=== PATIENT | male | born 1950 | race Caucasian/White ===

== ENCOUNTER 2021-11-26 09:31 | Inpatient (IN) ==
--- NOTE | 2021-11-26 09:51 | Emergency Department Note ---
Extremity Problem HPI General Chief complaint: Extremity Problem,Nontraumatic Stated complaint: leg pain Time Seen by Provider: 11/26/21 09:36 Source: patient and family Mode of arrival: wheelchair Limitations: no limitations History of Present Illness HPI Narrative: Narrative: 71-year-old male with a history of uncontrolled diabetes, venous insufficiency, BPH, congestive heart failure, chronic kidney disease, atrial fibrillation, reactive airway disease, hypertension, hyperlipidemia presents the ER to be eval uated for cellulitis of the right lower extremity. He was seen in the wound healing clinic yesterday and sent to the ER for admission for IV antibiotics and observation. He had unremarkable lab work and x-rays that showed no evidence of osteomyelitis or gas. He refused admission at that time because he had to take care of his animals. He states he has been trying to take his medications as regular but sometimes misses doses. He denies fever, chills, body aches, nausea or vomiting. He states his right lower extremity is painful and tender and has been weeping and oozing. It has been eroding away and he is losing skin surface on the anterior surface of his lower extremity. He does not have significant sensation. He does state the color has not changed though. He has no other complaints at this time and is amenable with admission today. Related Data Home Medications Medication Instructions Recorded Confirmed apixaban 5 mg tablet (Eliquis) 5 mg PO BID 02/16/18 11/26/21 omega-3 fatty acids 1,000 mg 1,000 mg PO QDAY 03/22/18 11/26/21 capsule (Fish Oil Concentrate) Previous Rx's Medication Instructions Recorded pen needle, diabetic 32 gauge x #100 ea 10/24/19" insulin detemir U-100 100 unit/mL 35 unit (0.35 mL) subcut QAM #30 mL 04/15/20 (3 mL) subcutaneous pen (Levemir FlexTouch U-100 Insulin) blood sugar diagnostic (Accu-Chek #100 ea 09/10/20 SmartView Test Strips) metformin 1,000 mg tablet 1,000 mg PO BID #180 tabs 05/27/21 spironolactone 25 mg tablet 25 mg PO QDAY #90 tabs 05/27/21 (Aldactone) glipizide 10 mg tablet (Glucotrol) 10 mg PO TID #270 tabs 06/06/21 amiodarone 200 mg tablet 200 mg PO QDAY #90 tabs 09/11/21 fenofibrate 160 mg tablet 160 mg PO QDAY #90 tabs 09/11/21 lisinopril 20 mg tablet 20 mg PO QDAY #90 tabs 09/11/21 furosemide 40 mg tablet (Lasix) 40 mg PO .COMPLEX #135 tabs 10/07/21 metoprolol succinate 100 mg 100 mg PO BID #180 tabs 11/11/21 tablet,extended release 24 hr (Toprol XL) tramadol 50 mg tablet (Ultram) 50 mg PO Q6H PRN pain #60 tabs 11/25/21 Allergies Allergy/AdvReac Type Severity Reaction Status Date / Time No Known Drug Allergies Allergy Verified 11/26/21 09:33 Review of Systems ROS ROS Narrative: Narrative: All systems ED: reviewed and negative except as stated. [facility] Narrative Patient History Narrative: Narrative: Medical/Surgical/Family History All Active Problems (Updated 11/26/21 @ 11:28 by Mina Lozano PA-C) Cellulitis of leg, right (Acute) Lower extremity ulceration (Acute) Cellulitis (Acute) Venous insufficiency (Acute) Frequent falls (Acute) Blunt head trauma (Acute) Foreign body of scalp (Acute) Lower extremity weakness (Acute) Pediculosis (Acute) Depression (Acute) BPH associated with nocturia (Acute) Lower extremity ulceration (Acute) Chronic pain (Acute) Annual physical exam (Acute) Medicare annual wellness visit, initial (Acute) Community acquired pneumonia (Acute) Congestive heart failure (Acute) Chronic kidney disease (Acute) Atrial fibrillation (Chronic) History of tonsillectomy (Acute) History of open reduction and internal fixation (ORIF) procedure (Acute) History of lumbosacral spine surgery (Acute) History of knee replacement (Acute) History of adenoidectomy (Acute) Reactive airway disease (Acute) Obesity (Acute) Neurodermatitis (Acute) Hypertension, essential (Chronic) Hyperlipidemia (Acute) Type 2 diabetes mellitus (Chronic) Dermatophytosis of groin (Acute) Cough (Acute) Colonic benign neoplasm (Acute) Ankle fracture (Acute) Medical History Ankle fracture Closed, R Annual physical exam BPH associated with nocturia Chronic pain Colonic benign neoplasm Cough Depression Dermatophytosis of groin 08/06/2014 Foreign body of scalp Hyperlipidemia Hypertension, essential 50s Lower extremity weakness Medicare annual wellness visit, initial Neurodermatitis 08/06/2014 Obesity Pediculosis Reactive airway disease Type 2 diabetes mellitus diagnosed in his 50s Surgical History History of adenoidectomy History of knee replacement left knee History of lumbosacral spine surgery decompression History of open reduction and internal fixation (ORIF) procedure Right ankle History of tonsillectomy Family History Mother , at 80 plus old age Atherosclerosis of coronary artery Essential hypertension Father , at 72 Malignant neoplasm of lung Social History Alcohol Intake Frequency: holiday/special occasion only Substance Use: does not use Exam Narrative Narrative: Narrative: Gen: No acute distress Eyes: PERRL, no conjunctival injection , and symmetrical lids. Sclerae non icte joo HENMT: Normocephalic Atraumatic head, external nose and ears. Moist MM. MSK: The majority of the anterior surface of the right lower extremity is eroding with a significant portion of the epidermis missing and it is eroding into the dermis with exposed oozing pink tissue. There is no purulent drainage. It is warm and erythematous. It is tender to the touch. Patient does have palpable distal pulses and cap refill. She does not have significant sensation due to diabetic neuropathy. Patient will likely need IV antibiotics and possible surgical debridement. Skin: Warm, Dry . No rashes or lesions . Cap refill less than 2. Psych: Awake, Alert, & Oriented (AAO) x3. Appropriate mood and affect . General Limitations: no limitations Course Vital Signs Vital signs: Vital Signs Temperature 96.1 F L 11/26/21 09:33 Pulse Rate 63 11/26/21 09:33 Respiratory Rate 20 11/26/21 09:33 Blood Pressure 126/68 11/26/21 09:33 Pulse Oximetry (%) 98 11/26/21 09:33 Oxygen Delivery Method 11/26/21 09:33 Temperature 96.1 F L 11/26/21 09:33 Pulse Rate 59 L 11/26/21 10:31 Respiratory Rate 20 11/26/21 09:33 Blood Pressure 105/56 11/26/21 10:31 Pulse Oximetry (%) 96 11/26/21 10:31 Oxygen Delivery Method 11/26/21 09:33 [facility] MDM Narrative Medical decision making narrative: Narrative: Patient has significant cellulitis were a good portion the anterior surface of his right tillman has eroded into the dermis due to sloughing and necrosing skin. Patient was seen yesterday and did not have a white count denies fever, chills or body aches. He does not meet sepsis criteria. He is afebrile. He has failed outpatient therapy and was sent here by the wound healing clinic yesterday by Dr. Marte. X-ray showed no evidence of osteomyelitis or gas. Patient be given vancomycin and Zosyn and will be evaluated with CBC, CMP, ESR, CRP and a lactate. When lab work is back hospitalist will be consulted. CBC: No white count, slight left shift, stable anemia CMP: Unremarkable ESR: 46 H CRP: 6.50 H Lactate: Elevated at 2.2 given the patient has a history of congestive heart failure we do not overload him. He will receive 1 L of fluid at this time. Patient does not meet SIRS criteria. Dr Marte: Agrees the patient needs admission is at risk for severe sepsis and will consult on Hospitalist: Graciously agreed to come down evaluate the patient Lab Data Result diagrams: 11/26/21 09:55 11/26/21 09:55 Labs: Lab Results 11/26/21 11/26/21 Range/Units 09:55 09:55 WBC 10.7 (4.5-11.0) K/mcL RBC 4.70 (4.63-6.08) M/mcL Hgb 11.2 L (13.7-17.5) g/dL Hct 38.7 L (40.1-51.0) % MCV 82.3 (80.0-100.0) fL MCH 23.8 L (26.0-34.0) pg MCHC 28.9 L (31.0-36.0) g/dL RDW 21.0 H (11.5-14.5) % Plt Count 382 (140-440) K/mcL MPV 9.9 (7.4-10.4) fL Immature Gran % (Auto) 0.4 (0.0-0.5) % Neut % (Auto) 84.4 H (38.0-78.0) % Lymph % (Auto) 5.0 L (15.5-49.0) % [place] % (Auto) 8.5 (1.0-12.0) % Eos % (Auto) 1.2 (0.0-7.0) % Baso % (Auto) 0.5 (0.0-2.0) % Lymph # (Auto) 0.54 L (1.50-4.80) K/mcL [place] # (Auto) 0.91 H (0.10-0.90) K/mcL Eos # (Auto) 0.13 (0.00-0.70) K/mcL Baso # (Auto) 0.05 (0.00-0.30) K/mcL Immature Gran # 0.04 (0.00-0.05) K/mcl Absolute Neutrophils 9.04 H (1.80-8.00) K/mcL VBG Lactic Acid 2.2 H (0.5-2.0) mmol/L Discharge Plan Patient/Caregiver Discharge Instructions Pt seen by [employer]/PA only: Yes Clinical Impression: Cellulitis Patient Disposition: Xfer As Inpt ([facility]) Follow up with: Serafin Sy MD [Primary Care Provider] - Prescriptions: No Action (DME) pen needle, diabetic 32 gauge x 5/32" needle See Rx Instructions .ROUTE .MEDSUPPLY Qty: 100 3RF Rx Instructions: Use with levemir once daily Levemir FlexTouch U-100 Insuln 100 unit/mL (3 mL) insulin pen 35 unit SUB-Q QAM Qty: 30 1RF (DME) Accu-Chek SmartView Test Strip Strip See Dose Instructions .ROUTE .MEDSUPPLY Qty: 100 3RF Dose Instruction: As directed Rx Instructions: Use to test BG once daily spironolactone [Aldactone] 25 mg tablet 25 mg PO QDAY Qty: 90 1RF metformin 1,000 mg tablet 1,000 mg PO BID Qty: 180 1RF glipizide [Glucotrol] 10 mg tablet 10 mg PO TID Qty: 270 1RF fenofibrate 160 mg tablet 160 mg tablet 160 mg PO QDAY Qty: 90 1RF lisinopril 20 mg tablet 20 mg PO QDAY Qty: 90 1RF amiodarone 200 mg tablet 200 mg PO QDAY Qty: 90 1RF furosemide [Lasix] 40 mg tablet 40 mg PO .COMPLEX Qty: 135 3RF Rx Instructions: 40 mg (1 tablet) PO each morning and 20mg (1/2 tablet) each afternoon at 2:00 p.m. metoprolol succinate [Toprol XL] 100 mg tablet extended release 24 hr 100 mg PO BID Qty: 180 1RF tramadol [Ultram] 50 mg tablet 50 mg PO Q6H PRN (Reason: pain) Qty: 60 0RF omega-3 fatty acids [Fish Oil Concentrate] 1,000 mg capsule 1,000 mg PO QDAY apixaban [Eliquis] 5 mg tablet 5 mg PO BID
[2021-11-26] MEDS ORDERED: PIPERACILLIN SODIUM/TAZOBACTAM 3.375 GM in DEXTROSE 5% IN WATER 50 ML IV ONE (09:56)
[2021-11-26] MEDS ORDERED: VANCOMYCIN PER PHARMACY IV ONE (09:56)
[2021-11-26] MEDS ORDERED: VANCOMYCIN 2,000 MG in 0.9 % SODIUM CHLORIDE 500 ML IV ONE (10:15)
[2021-11-26 10:48] LABS: Basophils # (Auto) 0.05 K/mcL (0.00-0.30); Basophils % (Auto) 0.5 % (0.0-2.0); Eosinophils # (Auto) 0.13 K/mcL (0.00-0.70); Eosinophils % (Auto) 1.2 % (0.0-7.0); Hematocrit 38.7 % (40.1-51.0); Hemoglobin 11.2 g/dL (13.7-17.5); Lymphocytes # (Auto) 0.54 K/mcL (1.50-4.80); Mean Cell Volume 82.3 fL (80.0-100.0); Mean Corpuscular HGB Conc 28.9 g/dL (31.0-36.0); Mean Platelet Volume 9.9 fL (7.4-10.4); Monocytes # (Auto) 0.91 K/mcL (0.10-0.90); Monocytes % (Auto) 8.5 % (1.0-12.0); Neutrophils % (Auto) 84.4 % (38.0-78.0); Platelet Count 382 K/mcL (140-440); WBC 10.7 K/mcL (4.5-11.0)
[2021-11-26] MEDS ORDERED: 0.9 % SODIUM CHLORIDE 1,000 ML IV ONE (10:50)
[2021-11-26 10:57] LABS: Erythrocyte Sedimentation Rate 46 mm/hr (0-20)
[2021-11-26 11:10] LABS: ALT/SGPT 11 U/L (<40); AST/SGOT 15 U/L (<40); Albumin 3.5 gm/dL (3.2-5.2); Albumin/Globulin Ratio 1.1 (1.0-2.3); Alkaline Phosphatase 49 U/L (39-117); Bilirubin,Total 0.7 mg/dL (0.1-1.0); Blood Urea Nitrogen 39 mg/dL (8-23); Calcium 9.2 mg/dL (8.6-10.4); Carbon Dioxide 22 mmol/L (22-30); Chloride 107 mmol/L (96-108); Globulin 3.3 gm/dL (2.2-3.7); Glomerular Filtration Rate 50; Glucose 141 mg/dL (70-105)
--- NOTE | 2021-11-26 11:28 | Internal Med History&Physical ---
HPI History of Present Illness Patient information: Note initiated : 11/26/21 at 11:25 am Service Date, if different from initiated Date: [] Patient: Ovidio Veloz a 71 y/o M admitted on for leg pain. Chief Complaint: [] History of present illness: Mr. Veloz is a 71 year old M Presents to the ED with right lower leg infection. He was evaluated yesterday but refused admission. The reason he came in yesterday was with ongoing issues with his leg and was sent in by Dr. Marte. He is to had chronic wounds to his lower extremities but over the past 3 to 4 days his right leg has been becoming increasingly red and painful as well. Cellulitis involves most of his tillman down into his foot. Case was discussed with Dr. Marte In the ED. In the ER was evaluated and found to have a lactate of 2.2. CRP was 6.5. Review of Systems: Pertinent positives as above. Denies headache/fever/chills/nausea/vomiting/chest or abdominal pain/cough/dyspnea/diarrhea. Remaining 10 point review of system reviewed negative PFSH PFSH All Active Problems (Updated 11/26/21 @ 11:28 by Mina Lozano PA-C) Cellulitis of leg, right (Acute) Lower extremity ulceration (Acute) Cellulitis (Acute) Venous insufficiency (Acute) Frequent falls (Acute) Blunt head trauma (Acute) Foreign body of scalp (Acute) Lower extremity weakness (Acute) Pediculosis (Acute) Depression (Acute) BPH associated with nocturia (Acute) Lower extremity ulceration (Acute) Chronic pain (Acute) Annual physical exam (Acute) Medicare annual wellness visit, initial (Acute) Community acquired pneumonia (Acute) Congestive heart failure (Acute) Chronic kidney disease (Acute) Atrial fibrillation (Chronic) History of tonsillectomy (Acute) History of open reduction and internal fixation (ORIF) procedure (Acute) History of lumbosacral spine surgery (Acute) History of knee replacement (Acute) History of adenoidectomy (Acute) Reactive airway disease (Acute) Obesity (Acute) Neurodermatitis (Acute) Hypertension, essential (Chronic) Hyperlipidemia (Acute) Type 2 diabetes mellitus (Chronic) Dermatophytosis of groin (Acute) Cough (Acute) Colonic benign neoplasm (Acute) Ankle fracture (Acute) Medical History Ankle fracture Closed, R Annual physical exam BPH associated with nocturia Chronic pain Colonic benign neoplasm Cough Depression Dermatophytosis of groin 08/06/2014 Foreign body of scalp Hyperlipidemia Hypertension, essential 50s Lower extremity weakness Medicare annual wellness visit, initial Neurodermatitis 08/06/2014 Obesity Pediculosis Reactive airway disease Type 2 diabetes mellitus diagnosed in his 50s Surgical History History of adenoidectomy History of knee replacement left knee History of lumbosacral spine surgery decompression History of open reduction and internal fixation (ORIF) procedure Right ankle History of tonsillectomy Family History Mother , at 80 plus old age Atherosclerosis of coronary artery Essential hypertension Father , at 72 Malignant neoplasm of lung Social History marital status: education level: high school occupation: Transportation alcohol intake frequency: holiday/special occasion only substance use type: does not use additional history: chewing tobacco since age 13 MEDS/ALLERGIES Home Medications and Allergies Home Medications Medication Instructions Recorded Confirmed Type apixaban 5 mg tablet (Eliquis) 5 mg PO BID 02/16/18 11/26/21 History omega-3 fatty acids 1,000 mg 1,000 mg PO QDAY 03/22/18 11/26/21 History capsule (Fish Oil Concentrate) pen needle, diabetic 32 gauge x #100 ea 10/24/19 11/26/21 Rx " insulin detemir U-100 100 unit/mL 35 unit (0.35 mL) subcut QAM #30 mL 04/15/20 11/26/21 Rx (3 mL) subcutaneous pen (Levemir FlexTouch U-100 Insulin) blood sugar diagnostic (Accu-Chek #100 ea 09/10/20 11/26/21 Rx SmartView Test Strips) metformin 1,000 mg tablet 1,000 mg PO BID #180 tabs 05/27/21 11/26/21 Rx spironolactone 25 mg tablet 25 mg PO QDAY #90 tabs 05/27/21 11/26/21 Rx (Aldactone) glipizide 10 mg tablet (Glucotrol) 10 mg PO TID #270 tabs 06/06/21 11/26/21 Rx amiodarone 200 mg tablet 200 mg PO QDAY #90 tabs 09/11/21 11/26/21 Rx fenofibrate 160 mg tablet 160 mg PO QDAY #90 tabs 09/11/21 11/26/21 Rx lisinopril 20 mg tablet 20 mg PO QDAY #90 tabs 09/11/21 11/26/21 Rx furosemide 40 mg tablet (Lasix) 40 mg PO .COMPLEX #135 tabs 10/07/21 11/26/21 Rx metoprolol succinate 100 mg 100 mg PO BID #180 tabs 11/11/21 11/26/21 Rx tablet,extended release 24 hr (Toprol XL) tramadol 50 mg tablet (Ultram) 50 mg PO Q6H PRN pain #60 tabs 11/25/21 11/26/21 Rx Allergies Allergy/AdvReac Type Severity Reaction Status Date / Time No Known Drug Allergies Allergy Verified 11/26/21 09:33 EXAM Constitutional Vitals: Temp Pulse Resp BP Pulse Ox O2 Del Method 96.1 F L 62 20 110/72 96 11/26/21 09:33 11/26/21 11:01 11/26/21 09:33 11/26/21 11:01 11/26/21 11:01 11/26/21 09:33 Exam: General: Alert, Awake, No acute Distress, obese Eyes/N/T: EOMI, PERRL, Head/Neck: neck supple, normocephalic atraumatic CV: Regular, No murmurs, normal s1/s2 Pulm: Clear b/l, no wheezing/rhonchi/rales Abd: soft, nontender, +BS x4 Ext: no clubbing/cyanosis, b/l LE edema. RLE erythema/edema/tender, venous stasis changes Neuro: Alert, no focal deficits, moves all extremities, CN 2-12 grossly intact, symmetrical strength b/l upper/lower, sensations intact b/l upper/lower Skin: warm/dry DATA Data Completed and Pending Labs: Labs from last 24 hours 11/26/21 11/26/21 11/26/21 09:55 09:55 09:55 WBC 10.7 RBC 4.70 Hgb 11.2 L Hct 38.7 L MCV 82.3 MCH 23.8 L MCHC 28.9 L RDW 21.0 H Plt Count 382 MPV 9.9 Immature Gran % (Auto) 0.4 Neut % (Auto) 84.4 H Lymph % (Auto) 5.0 L [place] % (Auto) 8.5 Eos % (Auto) 1.2 Baso % (Auto) 0.5 Lymph # (Auto) 0.54 L [place] # (Auto) 0.91 H Eos # (Auto) 0.13 Baso # (Auto) 0.05 Immature Gran # 0.04 Absolute Neutrophils 9.04 H ESR 46 H VBG Lactic Acid 2.2 H Sodium 141 Potassium 4.7 Chloride 107 Carbon Dioxide 22 Anion Gap 12.0 BUN 39 H Creatinine 1.4 H GFR Calculation 50 Glucose 141 H Calcium 9.2 Total Bilirubin 0.7 AST 15 ALT 11 Alkaline Phosphatase 49 C-Reactive Protein 6.50 H Total Protein 6.8 Albumin 3.5 Globulin 3.3 Albumin/Globulin Ratio 1.1 A/P Narrative A/P Narrative: A: *RLE/foot cellulitis w/Lactic Acidosis: *chronic LE wounds / venous stasis changes: *DM: A1c 7.5 *Obesity: bmi 37 *CKD III: *Anemia, chronic: *PAF: on amio/eliquis/bb *h/o systolic(40-45)/diastolic(II) CHF: from 2019 echo -on acei/lasix/aldactone *HTN: on acei/bb P: -IV abx, mrsa screen -Dr. Marte / wound care - -cont amio/bb/acie -Continue Lasix/Aldactone -basal and ssi -PT/OT -ppx: Eliquis Time Spent With Patient Time: Total time spent is greater than 50% in coordination of care (as documented) at patient's floor/unit and/or counseling patient: Total time spent with greater than 50% in coordination of care (as documented) at patient's floor/unit and/or counseling patient:: 50 - 70 minutes
[2021-11-26] MEDS ORDERED: IPRATROPIUM/ALBUTEROL 3 ML AMPUL.NEB NEB PRN (12:48)
[2021-11-26] MEDS ORDERED: ACETAMINOPHEN 325 MG TABLET PO PRN (12:48)
[2021-11-26] MEDS ORDERED: POTASSIUM CHLORIDE 20 MEQ TABLET PO PRN ×2 (12:48)
[2021-11-26] MEDS ORDERED: DEXTROSE 50% 50 ML VIAL IV PRN (12:48)
[2021-11-26] MEDS ORDERED: traMADol (PP) 50 MG TABLET (#4) PO PRN (12:48)
[2021-11-26] MEDS ORDERED: LABETALOL 5 MG/ML ML IV PRN (12:48)
[2021-11-26] MEDS ORDERED: METOPROLOL TARTRATE 5 MG/5 ML VIAL IV PRN (12:48)
[2021-11-26] MEDS ORDERED: morphine 4 MG/ML VIAL IV PRN (12:48)
[2021-11-26] MEDS ORDERED: MAGNESIUM SULFATE 2 GM/50 ML BAG IV PRN (12:48)
[2021-11-26] MEDS ORDERED: ONDANSETRON 4 MG/2 ML VIAL IV PRN (12:48)
[2021-11-26] MEDS ORDERED: POLYETHYLENE GLYCOL 3350 17 GM PACKET PO PRN (12:48)
[2021-11-26] MEDS ORDERED: HYDROcodone/APAP 5/325MG TABLET PO PRN (12:48)
[2021-11-26] MEDS ORDERED: DEXTROSE 31 GM ORAL.SUSP PO PRN (12:48)
[2021-11-26] MEDS ORDERED: POTASSIUM CHLORIDE 40 MEQ in DEXTROSE 5% IN WATER 500 ML IV PRN (12:48)
[2021-11-26] MEDS ORDERED: SENNOSIDES 1 TABLET PO PRN (12:48)
[2021-11-26] MEDS ORDERED: FUROSEMIDE 20 MG TABLET PO SCH (14:00)
[2021-11-26] MEDS ORDERED: FUROSEMIDE 40 MG/4 ML VIAL IV ONE (14:08)
[2021-11-26] MEDS: CEFEPIME 2 GM VIAL IV SCH (14:28)
[2021-11-26] MEDS: 0.9 % SODIUM CHLORIDE 10 ML SYRINGE IV SCH ×2 (14:29→20:25)
[2021-11-26] MEDS: INSULIN LISPRO 1 UNIT/0.01 ML UNIT SQ SCH ×2 (17:22→20:24)
--- NOTE | 2021-11-26 17:24 | General Surgery Consult Note ---
HPI Data of Consult Consult date: 11/26/21 Requesting physician: Zeeshan Richards Primary Care Provider: Serafin Sy MD Consult Narrative Patient Information: Note initiated : 11/26/21 at 5:14 pm Service Date, if different from initiated Date: [] Patient: Ovidio Veloz 71 y/o M admitted on 11/26/21 for leg pain. Chief Complaint: [] cc:: CC: Zeeshan Richards Consulted for local wound care RIGHT lower leg, ankle and foot cellulitis and lymphangitis. I saw this patient in room 133 at [facility]. PFSH PFSH All Active Problems Cellulitis of leg, right (Acute) Lower extremity ulceration (Acute) Cellulitis (Acute) Venous insufficiency (Acute) Frequent falls (Acute) Blunt head trauma (Acute) Foreign body of scalp (Acute) Lower extremity weakness (Acute) Pediculosis (Acute) Depression (Acute) BPH associated with nocturia (Acute) Lower extremity ulceration (Acute) Chronic pain (Acute) Annual physical exam (Acute) Medicare annual wellness visit, initial (Acute) Community acquired pneumonia (Acute) Congestive heart failure (Acute) Chronic kidney disease (Acute) Atrial fibrillation (Chronic) History of tonsillectomy (Acute) History of open reduction and internal fixation (ORIF) procedure (Acute) History of lumbosacral spine surgery (Acute) History of knee replacement (Acute) History of adenoidectomy (Acute) Reactive airway disease (Acute) Obesity (Acute) Neurodermatitis (Acute) Hypertension, essential (Chronic) Hyperlipidemia (Acute) Type 2 diabetes mellitus (Chronic) Dermatophytosis of groin (Acute) Cough (Acute) Colonic benign neoplasm (Acute) Ankle fracture (Acute) Medical History Ankle fracture Closed, R Annual physical exam BPH associated with nocturia Chronic pain Colonic benign neoplasm Cough Depression Dermatophytosis of groin 08/06/2014 Foreign body of scalp Hyperlipidemia Hypertension, essential 50s Lower extremity weakness Medicare annual wellness visit, initial Neurodermatitis 08/06/2014 Obesity Pediculosis Reactive airway disease Type 2 diabetes mellitus diagnosed in his 50s Surgical History History of adenoidectomy History of knee replacement left knee History of lumbosacral spine surgery decompression History of open reduction and internal fixation (ORIF) procedure Right ankle History of tonsillectomy Family History Mother , at 80 plus old age Atherosclerosis of coronary artery Essential hypertension Father , at 72 Malignant neoplasm of lung Social History marital status: education level: high school occupation: Transportation smoking status: Never smoker alcohol intake frequency: holiday/special occasion only substance use type: does not use additional history: chewing tobacco since age 13 MEDS/ALLERGIES Home Medications and Allergies Home Medications Medication Instructions Recorded Confirmed Type apixaban 5 mg tablet (Eliquis) 5 mg PO BID 02/16/18 11/27/21 History omega-3 fatty acids 1,000 mg 1,000 mg PO QDAY 03/22/18 11/27/21 History capsule (Fish Oil Concentrate) pen needle, diabetic 32 gauge x #100 ea 10/24/19 11/26/21 Rx /32" insulin detemir U-100 100 unit/mL 35 unit (0.35 mL) subcut QAM #30 mL 04/15/20 11/27/21 Rx (3 mL) subcutaneous pen (Levemir FlexTouch U-100 Insulin) blood sugar diagnostic (Accu-Chek #100 ea 09/10/20 11/26/21 Rx SmartView Test Strips) metformin 1,000 mg tablet 1,000 mg PO BID #180 tabs 05/27/21 11/27/21 Rx spironolactone 25 mg tablet 25 mg PO QDAY #90 tabs 05/27/21 11/27/21 Rx (Aldactone) glipizide 10 mg tablet (Glucotrol) 10 mg PO TID #270 tabs 06/06/21 11/27/21 Rx amiodarone 200 mg tablet 200 mg PO QDAY #90 tabs 09/11/21 11/27/21 Rx fenofibrate 160 mg tablet 160 mg PO QDAY #90 tabs 09/11/21 11/27/21 Rx lisinopril 20 mg tablet 20 mg PO QDAY #90 tabs 09/11/21 11/27/21 Rx furosemide 40 mg tablet (Lasix) 40 mg PO .COMPLEX #135 tabs 10/07/21 11/27/21 Rx metoprolol succinate 100 mg 100 mg PO BID #180 tabs 11/11/21 11/27/21 Rx tablet,extended release 24 hr (Toprol XL) tramadol 50 mg tablet (Ultram) 50 mg PO Q6H PRN pain #60 tabs 11/25/21 11/26/21 Rx Allergies Allergy/AdvReac Type Severity Reaction Status Date / Time No Known Drug Allergies Allergy Verified 11/26/21 09:33 Physical Examination Vital Signs Vital signs: Temp Pulse Resp BP Pulse Ox O2 Del Method 96.9 F L 61 22 126/75 100 11/26/21 12:48 11/26/21 12:48 11/26/21 12:48 11/26/21 12:48 11/26/21 12:48 11/26/21 12:48 General physical appearance General physical exam: well developed, well nourished, no distress, moderate p ain and other (Super morbidly obese. Restricted mobility) Eyes Eye exam: PERRL and normal ocular movement ENT ENT exam: normal pinna, normal mucosa and no congestion Head Head exam IM: Present atraumatic and normocephalic Neck Neck exam: no masses and trachea midline Cardiovascular Cardiovascular exam IM: Present normal rate and rhythm Respiratory Respiratory exam: normal respiratory effort and clear to auscultation Abdomen Abdomen: Present soft, non tender and tender (RLQ) Integumentary Integumentary: Present other (Lymphedema of both LE. (H/O bed bug infestation at home) Moisture dermatitis , Cellulitis RIGHT lower leg, ankle and foot. ) Neurologic Neurologic: Present other (NON focal neurological assessment.) Musculoskeletal Musculoskeletal: Present normal gait and normal posture Psychiatric Psychiatric: Present oriented to time, oriented to person, oriented to place, speech is normal and memory intact Results Labs Result diagrams: 11/27/21 05:21 11/27/21 05:21 Labs: Abnormal lab results 11/26/21 11/26/21 11/26/21 Range/Units 09:55 09:55 09:55 Hgb 11.2 L (13.7-17.5) g/dL Hct 38.7 L (40.1-51.0) % MCH 23.8 L (26.0-34.0) pg MCHC 28.9 L (31.0-36.0) g/dL RDW 21.0 H (11.5-14.5) % Neut % (Auto) 84.4 H (38.0-78.0) % Lymph % (Auto) 5.0 L (15.5-49.0) % Lymph # (Auto) 0.54 L (1.50-4.80) K/mcL [place] # (Auto) 0.91 H (0.10-0.90) K/mcL Absolute Neutrophils 9.04 H (1.80-8.00) K/mcL ESR 46 H (0-20) mm/hr VBG Lactic Acid 2.2 H (0.5-2.0) mmol/L BUN 39 H (8-23) mg/dL Creatinine 1.4 H (0.7-1.2) mg/dL Glucose 141 H (70-105) mg/dL C-Reactive Protein 6.50 H (0.03-0.80) mg/dL Diabetes panel 11/26/21 Range/Units 09:55 Sodium 141 (133-145) mmol/L Potassium 4.7 (3.3-5.1) mmol/L Chloride 107 (96-108) mmol/L Carbon Dioxide 22 (22-30) mmol/L BUN 39 H (8-23) mg/dL Creatinine 1.4 H (0.7-1.2) mg/dL Glucose 141 H (70-105) mg/dL Calcium 9.2 (8.6-10.4) mg/dL AST 15 (<40) U/L ALT 11 (<40) U/L Alkaline Phosphatase 49 (39-117) U/L Total Protein 6.8 (5.9-8.4) gm/dL Albumin 3.5 (3.2-5.2) gm/dL Calcium panel 11/26/21 Range/Units 09:55 Calcium 9.2 (8.6-10.4) mg/dL Albumin 3.5 (3.2-5.2) gm/dL Pituitary panel 11/26/21 Range/Units 09:55 Sodium 141 (133-145) mmol/L Potassium 4.7 (3.3-5.1) mmol/L Chloride 107 (96-108) mmol/L Carbon Dioxide 22 (22-30) mmol/L BUN 39 H (8-23) mg/dL Creatinine 1.4 H (0.7-1.2) mg/dL Glucose 141 H (70-105) mg/dL Calcium 9.2 (8.6-10.4) mg/dL Adrenal panel 11/26/21 Range/Units 09:55 Sodium 141 (133-145) mmol/L Potassium 4.7 (3.3-5.1) mmol/L Chloride 107 (96-108) mmol/L Carbon Dioxide 22 (22-30) mmol/L BUN 39 H (8-23) mg/dL Creatinine 1.4 H (0.7-1.2) mg/dL Glucose 141 H (70-105) mg/dL Calcium 9.2 (8.6-10.4) mg/dL Total Bilirubin 0.7 (0.1-1.0) mg/dL AST 15 (<40) U/L ALT 11 (<40) U/L Alkaline Phosphatase 49 (39-117) U/L Total Protein 6.8 (5.9-8.4) gm/dL Albumin 3.5 (3.2-5.2) gm/dL All other labs normal. A/P Narrative A/P Narrative: Assessment: Established patient at wound care center. Admitted from ER. Cellulitis RIGHT lower leg, heel and foot. Morbid obesity DN2 HTN Plan of Treatment: Plan: IV antibiotics. Local wound care, MIST tretments Reassess in AM Time Spent With Patient Time: Total time spent is greater than 50% in coordination of care (as documented) at patient's floor/unit and/or counseling patient: Total time spent with greater than 50% in coordination of care (as documented) at patient's floor/unit and/or counseling patient:: 25 - 35 minutes
[2021-11-26] MEDS: DOCUSATE SODIUM 100 MG CAPSULE PO SCH (20:24)
[2021-11-26] MEDS: METOPROLOL SUCCINATE 50 MG TAB.XL.24H PO SCH (20:24)
[2021-11-26] MEDS: APIXABAN 5 MG TABLET PO SCH (20:25)
[2021-11-27] MEDS: CEFEPIME 2 GM VIAL IV SCH ×2 (00:09→12:17)
[2021-11-27] MEDS: 0.9 % SODIUM CHLORIDE 10 ML SYRINGE IV SCH ×3 (05:51→20:51)
--- NOTE | 2021-11-27 08:16 | Internal Med Progress Note ---
SUBJECTIVE Subjective Patient information: Note initiated : 11/27/21 at 8:15 am Service Date, if different from initiated Date: [] Patient: Ovidio Veloz 71 y/o M admitted on 11/26/21 for leg pain. Chief Complaint: [] Interval history: History of present illness: Mr. Veloz is a 71 year old M Presents to the ED with right lower leg infection. He was evaluated yesterday but refused admission. The reason he came in yesterday was with ongoing issues with his leg and was sent in by Dr. Marte. He is to had chronic wounds to his lower extremities but over the past 3 to 4 days his right leg has been becoming increasingly red and painful as well. Cellulitis involves most of his tillman down into his foot. Case was discussed with Dr. Marte In the ED. In the ER was evaluated and found to have a lactate of 2.2. CRP was 6.5. 11/27 No overnight event or new complaints. Dr. Marte for wound care treatment. Low glucose on this morning. CRP minimally improved. Review of Systems: denies headache/fever/chills/nausea/vomiting/chest or abdominal pain/cough/dyspnea/diarrhea. Otherwise see above. Constitutional Vitals: Vital Signs Temp Pulse Resp BP Pulse Ox O2 Del Method 97.1 F 56 L 20 137/83 96 11/27/21 08:00 11/27/21 08:00 11/27/21 08:00 11/27/21 08:00 11/27/21 08:00 11/27/21 04:00 Period Temp Pulse Resp BP Sys/Spence Pulse Ox O2 Del Method O2 Flow Rate Last 24 Hr 96.1 F-98.4 F 55-64 - 105-137/56-83 96-100 Room Air-Room Air Intake and Output 11/26/21 11/27/21 11/27/21 21:59 05:59 13:59 Intake Total 760 520 Output Total 650 Balance 760 -130 Weight 129.529 kg Intake & Output: Intake & Output 11/26/21 11/27/21 11/27/21 21:59 05:59 13:59 Intake Total 760 520 Output Total 650 Balance 760 -130 Weight 129.529 kg Intake: Oral 760 520 Output: Void Amount 650 Other: Meal Dinner Percent of Meal Consumed 100% Feeding Ability Assist with Tray Set Up Urine Appearance Clear Clear Urine Color Yellow Yellow Urine Odor Normal Normal # Voids 1 1 Exam: General: Alert, Awake, No acute Distress, obese Eyes/N/T: EOMI, Head/Neck: neck supple, CV: Regular, No murmurs, Pulm: Clear b/l, no wheezing/rhonchi/rales Abd: soft, nontender, +BS x4 Ext: no clubbing/cyanosis, b/l LE edema. RLE erythema/edema/tender, venous sta sis changes Neuro: Alert, no focal deficits, moves all extremities, Skin: warm/dry OBJ DATA Labs CBC & Chem 7: 11/27/21 05:21 11/27/21 05:21 Labs: Abnormal Lab Results 11/26/21 11/26/21 11/26/21 09:55 09:55 09:55 Hgb 11.2 L Hct 38.7 L MCH 23.8 L MCHC 28.9 L RDW 21.0 H Neut % (Auto) 84.4 H Lymph % (Auto) 5.0 L Lymph # (Auto) 0.54 L [place] # (Auto) 0.91 H Absolute Neutrophils 9.04 H ESR 46 H VBG Lactic Acid 2.2 H BUN 39 H Creatinine 1.4 H Glucose 141 H C-Reactive Protein 6.50 H Meds: Medications Acetaminophen (Acetaminophen 325 Mg Tablet) 650 mg PO Q6HP PRN; Protocol PRN Reason: Per Pain Protocol/Fever > 101 Last Admin: 11/26/21 14:28 Dose: 650 mg Hydrocodone Bitart/Acetaminophen (Hydrocodone/Apap 5/325mg Tablet) 1 tab PO Q4HP PRN PRN Reason: PAIN LEVEL 3-6 Albuterol/Ipratropium (Ipratropium/Albuterol 3 Ml Ampul.Neb) 3 ml NEB Q4HP PRN PRN Reason: Shortness Of Breath Amiodarone HCl ([facility] Hcl 200 Mg Tablet) [facility] Apixaban (Apixaban 5 Mg Tablet) 5 mg PO BID [facility] [place] Last Admin: 11/26/21 20:25 Dose: 5 mg Cefepime HCl (Cefepime 2 Gm Vial) 2 gm IV Q12H JOHNNY; Protocol Last Admin: 11/27/21 00:09 Dose: 2 gm Dextrose (Dextrose 50% 50 Ml Vial) 0 ml IV UD PRN PRN Reason: Per Sliding Scale Diagnostic Test (Pha) (Accu-Chek 1 Each Strip) 1 each FS ACHS [facility] [place] Last Admin: 11/27/21 07:59 Dose: 1 each Docusate Sodium (Docusate Sodium 100 Mg Capsule) 100 mg PO BID [facility] [place] Last Admin: 11/26/21 20:24 Dose: 100 mg Fenofibrate (Fenofibrate 43 Mg Capsule) 172 mg PO DAILY [facility] [place] Furosemide (Furosemide 40 Mg Tablet) 40 mg PO DAILY [facility] [place] Furosemide (Furosemide 20 Mg Tablet) 20 mg PO DAILY@1400 [facility] Last Admin: 11/26/21 14:29 Dose: 20 mg Glucose (Dextrose 31 Gm Oral.Susp) 15 gm PO PRN PRN PRN Reason: Hypoglycemia Potassium Chloride 40 meq/ (Dextrose) 520 mls @ 130 mls/hr IV UD PRN PRN Reason: Potassium < 3 Magnesium Sulfate (Magnesium Sulfate) 2 gm in 50 mls @ 50 mls/hr IV UD PRN PRN Reason: Magnesium </= 1.6 Insulin Glargine (Insulin Glargine, Human 1 Unit/0.01 Ml) 35 unit SQ DAILY [facility] [place] Insulin Human Lispro (Insulin Lispro 1 Unit/0.01 Ml Unit) 0 unit SQ ACHS [facility] [place]; Protocol Last Admin: 11/26/21 20:24 Dose: 2 units Labetalol HCl (Labetalol 5 Mg/Ml Ml) 0 mg IV Q2HP PRN PRN Reason: Hypertension Lisinopril (Lisinopril 20 Mg Tablet) 20 mg PO QDAY [facility] [place] Metoprolol Succinate (Metoprolol Succinate 50 Mg Tab.Xl.24h) 100 mg PO BID [facility] [place] Last Admin: 11/26/21 20:24 Dose: 100 mg Metoprolol Tartrate (Metoprolol Tartrate 5 Mg/5 Ml Vial) 5 mg IV Q2HP PRN PRN Reason: Tachyarrhythmias HR>110 Morphine Sulfate (Morphine 4 Mg/Ml Vial) 0 mg IV Q3HP PRN PRN Reason: Pain Ondansetron HCl (Ondansetron 4 Mg/2 Ml Vial) 4 mg IV Q4HP PRN PRN Reason: Nausea And Vomiting Polyethylene Glycol (Polyethylene Glycol 3350 17 Gm Packet) 17 gm PO DAILYP PRN PRN Reason: Constipation Potassium Chloride (Potassium Chloride 20 Meq Tablet) 40 meq PO UD PRN PRN Reason: Potssium is 3-3.5 Potassium Chloride (Potassium Chloride 20 Meq Tablet) 40 meq PO UD PRN PRN Reason: Potassium < 3 Senna (Sennosides 1 Tablet) 2 tab PO DAILYP PRN PRN Reason: Constipation Sodium Chloride (0.9 % Sodium Chloride 10 Ml Syringe) 10 ml IV Q8 [facility] [place] Last Admin: 11/27/21 05:51 Dose: Not Given Spironolactone (Spironolactone 25 Mg Tablet) 25 mg PO QDAY JOHNNY A/P Narrative A/P Narrative: A: *RLE/foot cellulitis w/Lactic Acidosis: *chronic LE wounds / venous stasis changes: *DM: A1c 7.5 -low BG this morning *Obesity: bmi 38 *CKD III: *Anemia, chronic: *PAF: on amio/eliquis/bb *h/o systolic(40-45)/diastolic(II) CHF: from 2019 echo -on acei/lasix/aldactone *HTN: on acei/bb P: -IV abx, mrsa screen neg -Dr. Marte / wound care -cont amio/bb/acie -Continue Lasix/Aldactone -basal(decrease)and ssi -PT/OT -ppx: Eliquis Plan of Treatment: Plan: IV antibiotics. Local wound care, MIST tretments Reassess in AM Time Spent With Patient Time: Total time spent is greater than 50% in coordination of care (as documented) at patient's floor/unit and/or counseling patient: Total time spent with greater than 50% in coordination of care (as documented) at patient's floor/unit and/or counseling patient:: 25 - 35 minutes QUALITY Stroke Symptom Onset Unknown: No VTE Deep Vein Thrombosis/Pulmonary Embolism Present on Admission: No
[2021-11-27] MEDS: INSULIN LISPRO 1 UNIT/0.01 ML UNIT SQ SCH ×4 (08:17→20:51)
[2021-11-27 08:59] LABS: Basophils # (Auto) 0.07 K/mcL (0.00-0.30); Basophils % (Auto) 0.8 % (0.0-2.0); Eosinophils # (Auto) 0.23 K/mcL (0.00-0.70); Eosinophils % (Auto) 2.6 % (0.0-7.0); Hematocrit 35.5 % (40.1-51.0); Hemoglobin 10.5 g/dL (13.7-17.5); Lymphocytes # (Auto) 0.76 K/mcL (1.50-4.80); Lymphocytes % (Auto) 8.6 % (15.5-49.0); Mean Cell Volume 82.4 fL (80.0-100.0); Mean Corpuscular HGB Conc 29.6 g/dL (31.0-36.0); Mean Platelet Volume 9.8 fL (7.4-10.4); Monocytes % (Auto) 10.2 % (1.0-12.0); Neutrophils % (Auto) 77.5 % (38.0-78.0); Platelet Count 352 K/mcL (140-440); RBC 4.31 M/mcL (4.63-6.08); Red Cell Distribution Width 20.4 % (11.5-14.5); WBC 8.8 K/mcL (4.5-11.0)
[2021-11-27] MEDS ORDERED: INSULIN GLARGINE, HUMAN 1 UNIT/0.01 ML SQ SCH (09:00)
[2021-11-27 09:03] LABS: ALT/SGPT 9 U/L (<40); AST/SGOT 11 U/L (<40); Albumin/Globulin Ratio 0.9 (1.0-2.3); Alkaline Phosphatase 41 U/L (39-117); Bilirubin,Direct 0.4 mg/dL (<0.3); Bilirubin,Total 0.7 mg/dL (0.1-1.0); Blood Urea Nitrogen 38 mg/dL (8-23); Calcium 8.8 mg/dL (8.6-10.4); Carbon Dioxide 24 mmol/L (22-30); Chloride 107 mmol/L (96-108); Globulin 3.2 gm/dL (2.2-3.7); Glomerular Filtration Rate 46; Glucose 58 mg/dL (70-105); Lactate Dehydrogenase 166 U/L (135-225); Phosphorous 3.8 mg/dL (2.5-4.5); Triglycerides 81 mg/dL (<150); Uric Acid 8.5 mg/dL (2.5-8.0)
[2021-11-27] MEDS ORDERED: FUROSEMIDE 20 MG/2 ML VIAL IV ONE (10:06)
[2021-11-27] MEDS ORDERED: ALBUMIN HUMAN 12.5 GM/50 ML BAG IV ONE (10:06)
[2021-11-27] MEDS: FUROSEMIDE 40 MG TABLET PO SCH (10:10)
[2021-11-27] MEDS: METOPROLOL SUCCINATE 50 MG TAB.XL.24H PO SCH ×2 (10:10→20:50)
[2021-11-27] MEDS: SPIRONOLACTONE 25 MG TABLET PO SCH (10:10)
[2021-11-27] MEDS: LISINOPRIL 20 MG TABLET PO SCH (10:10)
[2021-11-27] MEDS: DOCUSATE SODIUM 100 MG CAPSULE PO SCH ×2 (10:10→20:50)
[2021-11-27] MEDS: APIXABAN 5 MG TABLET PO SCH ×2 (10:10→20:50)
[2021-11-27] MEDS: FENOFIBRATE 43 MG CAPSULE PO SCH (10:11)
[2021-11-27] MEDS: AMIODARONE HCL 200 MG TABLET PO SCH (10:11)
[2021-11-27] MEDS: INSULIN GLARGINE, HUMAN 1 UNIT/0.01 ML SQ SCH (11:04)
--- NOTE | 2021-11-27 18:37 | General Surgery Progress Note ---
SUBJECTIVE Subjective Patient information: Note initiated : 11/27/21 at 6:31 pm Service Date, if different from initiated Date: [] Patient: Ovidio Veloz 71 y/o M admitted on 11/26/21 for leg pain. Chief Complaint: [] Additional PMFSH (Level 3 Only): Saw patient this morning along with Andrew Mcelroy RN. Constitutional Vitals: Vital Signs Temp Pulse Resp BP Pulse Ox O2 Del Method 97.2 F 60 18 154/86 98 11/27/21 15:38 11/27/21 15:38 11/27/21 15:38 11/27/21 15:38 11/27/21 15:38 11/27/21 08:10 Period Temp Pulse Resp BP Sys/Spence Pulse Ox O2 Del Method O2 Flow Rate Last 24 Hr 97.1 F-98.4 F 55-60 16-20 110-154/68-86 94-99 Room Air-Room Air Intake and Output 11/27/21 11/27/21 11/27/21 05:59 13:59 21:59 Intake Total 661 348 5357 Output Total 650 Balance -219 033 7692 Weight 285 lb 9 oz Patient Weight 11/28/21 05:59 Weight 285 lb 9 oz Intake & Output: Intake & Output 11/27/21 11/27/21 11/27/21 05:59 13:59 21:59 Intake Total 222 411 0266 Output Total 650 Balance -088 415 3065 Weight 285 lb 9 oz Intake: IV 50 Oral 620 592 2663 Output: Void Amount 650 Other: Meal Breakfast snack Percent of Meal Consumed 100% 100% Feeding Ability Independent Urine Appearance Clear Urine Color Yellow Urine Odor Normal # Voids 1 1 1 Exam: AVSS. No interval changes in KRISSY. EIGHT foot, ankle and leg inflammatory changes are resolving. Still continues to have serous, green drainage soaking thru dressings. Edema of RLE leg, foot and ankle is less. A/P Narrative A/P Narrative: Assessment: Day 2, IV antibiotics and MIST treatment for CSSSI Right leg. Resolving inflammatory changes. Plan: Continue present management. Reassess again tomorrow. Further recommendation later. Plan of Treatment: Plan: IV antibiotics. Local wound care, MIST tretments Reassess in AM Time Spent With Patient Time: Total time spent is greater than 50% in coordination of care (as documented) at patient's floor/unit and/or counseling patient: Total time spent with greater than 50% in coordination of care (as documented) at patient's floor/unit and/or counseling patient:: 25 - 35 minutes
[2021-11-28] MEDS: CEFEPIME 2 GM VIAL IV SCH ×3 (00:38→12:55)
[2021-11-28] MEDS: 0.9 % SODIUM CHLORIDE 10 ML SYRINGE IV SCH ×2 (05:29→12:55)
[2021-11-28 06:55] LABS: Blood Urea Nitrogen 38 mg/dL (8-23); Calcium 8.7 mg/dL (8.6-10.4); Carbon Dioxide 25 mmol/L (22-30); Chloride 105 mmol/L (96-108); Glomerular Filtration Rate 54; Glucose 146 mg/dL (70-105)
[2021-11-28] MEDS: FUROSEMIDE 40 MG TABLET PO SCH (08:08)
[2021-11-28] MEDS: METOPROLOL SUCCINATE 50 MG TAB.XL.24H PO SCH (08:08)
[2021-11-28] MEDS: APIXABAN 5 MG TABLET PO SCH (08:08)
[2021-11-28] MEDS: FENOFIBRATE 43 MG CAPSULE PO SCH (08:08)
[2021-11-28] MEDS: AMIODARONE HCL 200 MG TABLET PO SCH (08:08)
[2021-11-28] MEDS: DOCUSATE SODIUM 100 MG CAPSULE PO SCH (08:08)
[2021-11-28] MEDS: SPIRONOLACTONE 25 MG TABLET PO SCH (08:08)
[2021-11-28] MEDS: LISINOPRIL 20 MG TABLET PO SCH (08:08)
[2021-11-28] MEDS: INSULIN LISPRO 1 UNIT/0.01 ML UNIT SQ SCH ×2 (08:26→11:22)
[2021-11-28] MEDS: INSULIN GLARGINE, HUMAN 1 UNIT/0.01 ML SQ SCH (08:26)
--- NOTE | 2021-11-28 08:28 | Internal Med Progress Note ---
SUBJECTIVE Subjective Patient information: Note initiated : 11/28/21 at 8:24 am Service Date, if different from initiated Date: [] Patient: Ovidio Veloz 71 y/o M admitted on 11/26/21 for leg pain. Chief Complaint: [] Interval history: History of present illness: Mr. Veloz is a 71 year old M Presents to the ED with right lower leg infection. He was evaluated yesterday but refused admission. The reason he came in yesterday was with ongoing issues with his leg and was sent in by Dr. Marte. He is to had chronic wounds to his lower extremities but over the past 3 to 4 days his right leg has been becoming increasingly red and painful as well. Cellulitis involves most of his tillman down into his foot. Case was discussed with Dr. Marte In the ED. In the ER was evaluated and found to have a lactate of 2.2. CRP was 6.5. 11/27 No overnight event or new complaints. Dr. Marte for wound care treatment. Low glucose on this morning. CRP minimally improved. 11/28 Patient states he is ready to go home. CRP slowly improving. Review of Systems: denies headache/fever/chills/nausea/vomiting/chest or abdominal pain/cough/dyspnea/diarrhea. Otherwise see above. Constitutional Vitals: Vital Signs Temp Pulse Resp BP Pulse Ox O2 Del Method 96.9 F L 48 L 16 119/74 94 11/28/21 07:47 11/28/21 07:47 11/28/21 07:47 11/28/21 07:47 11/28/21 07:47 11/28/21 07:47 Period Temp Pulse Resp BP Sys/Spence Pulse Ox O2 Del Method O2 Flow Rate Last 24 Hr 96.9 F-97.7 F 48-60 16-20 119-159/74-90 94-98 Room Air-Room Air Intake and Output 11/27/21 11/28/21 11/28/21 21:59 05:59 13:59 Intake Total 1200 800 Balance 1200 800 Weight 128.905 kg Intake & Output: Intake & Output 11/27/21 11/28/21 11/28/21 21:59 05:59 13:59 Intake Total 1200 800 Balance 1200 800 Weight 128.905 kg Intake: Oral 1200 800 Other: Meal snack Percent of Meal Consumed 100% Feeding Ability Independent # Voids 1 1 Exam: General: Alert, Awake, No acute Distress, obese Eyes/N/T: EOMI, Head/Neck: neck supple, CV: Regular, No murmurs, Pulm: Clear b/l, no wheezing/rhonchi/rales Abd: soft, nontender, +BS x4 Ext: no clubbing/cyanosis, b/l LE edema 2-3+. RLE in dressings Neuro: Alert, no focal deficits, moves all extremities, Skin: warm/dry OBJ DATA Labs CBC & Chem 7: 11/27/21 05:21 11/28/21 05:11 Labs: Abnormal Lab Results 11/28/21 11/28/21 11/27/21 05:11 05:11 05:21 RBC Hgb Hct MCH MCHC RDW Neut % (Auto) Lymph % (Auto) Lymph # (Auto) [place] # (Auto) Absolute Neutrophils ESR VBG Lactic Acid BUN 38 H 38 H Creatinine 1.3 H 1.5 H Glucose 146 H 58 L Uric Acid 8.2 H 8.5 H Direct Bilirubin 0.4 H C-Reactive Protein 5.20 H 6.00 H Albumin 3.0 L Albumin/Globulin Ratio 0.9 L 11/27/21 11/26/21 11/26/21 05:21 09:55 09:55 RBC 4.31 L Hgb 10.5 L Hct 35.5 L MCH 24.4 L MCHC 29.6 L RDW 20.4 H Neut % (Auto) Lymph % (Auto) 8.6 L Lymph # (Auto) 0.76 L [place] # (Auto) Absolute Neutrophils ESR VBG Lactic Acid 2.2 H BUN 39 H Creatinine 1.4 H Glucose 141 H Uric Acid Direct Bilirubin C-Reactive Protein 6.50 H Albumin Albumin/Globulin Ratio 11/26/21 09:55 RBC Hgb 11.2 L Hct 38.7 L MCH 23.8 L MCHC 28.9 L RDW 21.0 H Neut % (Auto) 84.4 H Lymph % (Auto) 5.0 L Lymph # (Auto) 0.54 L [place] # (Auto) 0.91 H Absolute Neutrophils 9.04 H ESR 46 H VBG Lactic Acid BUN Creatinine Glucose Uric Acid Direct Bilirubin C-Reactive Protein Albumin Albumin/Globulin Ratio Meds: Medications Acetaminophen (Acetaminophen 325 Mg Tablet) 650 mg PO Q6HP PRN; Protocol PRN Reason: Per Pain Protocol/Fever > 101 Last Admin: 11/26/21 14:28 Dose: 650 mg Hydrocodone Bitart/Acetaminophen (Hydrocodone/Apap 5/325mg Tablet) 1 tab PO Q4HP PRN PRN Reason: PAIN LEVEL 3-6 Last Admin: 11/28/21 00:44 Dose: 1 tab Albuterol/Ipratropium (Ipratropium/Albuterol 3 Ml Ampul.Neb) 3 ml NEB Q4HP PRN PRN Reason: Shortness Of Breath Amiodarone HCl (Amiodarone Hcl 200 Mg Tablet) 200 mg PO [facility] Last Admin: 11/28/21 08:08 Dose: 200 mg Apixaban (Apixaban 5 Mg Tablet) 5 mg PO BID [facility] Last Admin: 11/28/21 08:08 Dose: 5 mg Cefepime HCl (Cefepime 2 Gm Vial) 2 gm IV Q8H [facility]; Protocol Last Admin: 11/28/21 08:11 Dose: 2 gm Dextrose (Dextrose 50% 50 Ml Vial) 0 ml IV UD PRN PRN Reason: Per Sliding Scale Diagnostic Test (Pha) (Accu-Chek 1 Each Strip) 1 each FS ACHS [facility] Last Admin: 11/28/21 08:06 Dose: 1 each Docusate Sodium (Docusate Sodium 100 Mg Capsule) 100 mg PO BID [facility] Last Admin: 11/28/21 08:08 Dose: 100 mg Fenofibrate (Fenofibrate 43 Mg Capsule) 172 mg PO DAILY [facility] Last Admin: 11/28/21 08:08 Dose: 172 mg Furosemide (Furosemide 40 Mg Tablet) 40 mg PO DAILY [facility] Last Admin: 11/28/21 08:08 Dose: 40 mg Glucose (Dextrose 31 Gm Oral.Susp) 15 gm PO PRN PRN PRN Reason: Hypoglycemia Potassium Chloride 40 meq/ (Dextrose) 520 mls @ 130 mls/hr IV UD PRN PRN Reason: Potassium < 3 Magnesium Sulfate (Magnesium Sulfate) 2 gm in 50 mls @ 50 mls/hr IV UD PRN PRN Reason: Magnesium </= 1.6 Insulin Glargine (Insulin Glargine, Human 1 Unit/0.01 Ml) 20 unit SQ DAILY [facility] Last Admin: 11/27/21 11:04 Dose: 20 units Insulin Human Lispro (Insulin Lispro 1 Unit/0.01 Ml Unit) 0 unit SQ [facility]; Protocol Last Admin: 11/27/21 20:51 Dose: Not Given Labetalol HCl (Labetalol 5 Mg/Ml Ml) 0 mg IV Q2HP PRN PRN Reason: Hypertension Lisinopril (Lisinopril 20 Mg Tablet) 20 mg PO QDAY [facility] Last Admin: 11/28/21 08:08 Dose: 20 mg Metoprolol Succinate (Metoprolol Succinate 50 Mg Tab.Xl.24h) 100 mg PO BID [facility] Last Admin: 11/28/21 08:08 Dose: 100 mg Metoprolol Tartrate (Metoprolol Tartrate 5 Mg/5 Ml Vial) 5 mg IV Q2HP PRN PRN Reason: Tachyarrhythmias HR>110 Morphine Sulfate (Morphine 4 Mg/Ml Vial) 0 mg IV Q3HP PRN PRN Reason: Pain Ondansetron HCl (Ondansetron 4 Mg/2 Ml Vial) 4 mg IV Q4HP PRN PRN Reason: Nausea And Vomiting Polyethylene Glycol (Polyethylene Glycol 3350 17 Gm Packet) 17 gm PO DAILYP PRN PRN Reason: Constipation Potassium Chloride (Potassium Chloride 20 Meq Tablet) 40 meq PO UD PRN PRN Reason: Potssium is 3-3.5 Potassium Chloride (Potassium Chloride 20 Meq Tablet) 40 meq PO UD PRN PRN Reason: Potassium < 3 Senna (Sennosides 1 Tablet) 2 tab PO DAILYP PRN PRN Reason: Constipation Sodium Chloride (0.9 % Sodium Chloride 10 Ml Syringe) 10 ml IV Q8 [facility] Last Admin: 11/28/21 05:29 Dose: 10 ml Spironolactone (Spironolactone 25 Mg Tablet) 25 mg PO QDAY [facility] Last Admin: 11/28/21 08:08 Dose: 25 mg A/P Narrative A/P Narrative: A: *RLE/foot cellulitis w/Lactic Acidosis: -crp slowly improving *chronic LE wounds / venous stasis changes: *DM: A1c 7.5 - *Obesity: bmi 38 *CKD III: *Anemia, chronic: *PAF: on amio/eliquis/bb *h/o systolic(40-45%)/diastolic(II) CHF: from 2019 echo -on acei/lasix/aldactone *HTN: on acei/bb P: -IV abx, mrsa screen neg -Dr. Marte / wound care -cont amio/bb/acie -Continue Lasix/Aldactone -basal(decreased)and ssi -PT/OT -ppx: Eliquis Plan of Treatment: Plan: IV antibiotics. Local wound care, MIST tretments Reassess in AM Time Spent With Patient Time: Total time spent is greater than 50% in coordination of care (as documented) at patient's floor/unit and/or counseling patient: QUALITY Stroke Symptom Onset Unknown: No VTE Deep Vein Thrombosis/Pulmonary Embolism Present on Admission: No
[2021-11-28] MEDS ORDERED: FUROSEMIDE 40 MG/4 ML VIAL IV ONE (09:23)
[2021-11-28] MEDS ORDERED: ALBUMIN HUMAN 12.5 GM/50 ML BAG IV ONE (09:23)
--- NOTE | 2021-11-28 09:29 | Discharge Summary ---
Discharge Provider Provider IMPORTANT FOLLOW-UP INFORMATION FOR PCP: Patient information: Note initiated : 11/28/21 at 9:27 am Service Date, if different from initiated Date: [] Patient: Ovidio Veloz 71 y/o M admitted on 11/26/21 for leg pain. Chief Complaint: [] Date of admission: 11/26/21 11:57 Discharge date: 11/28/21 Primary care physician: Serafin Sy MD Consults: 11/26/21 Consult to Physician [CONS] Stat Comment: Consulting Provider: Rebel Marte Reason For Exam: Physician to Consult 11/26/21 09:53 Consult to Physician [CONS] Stat Comment: Consulting Provider: Zeeshan Richards Reason For Exam: Physician to Consult COURSE Hospital Course Hospital course: History of present illness: Mr. Veloz is a 71 year old M Presents to the ED with right lower leg infection. He was evaluated yesterday but refused admission. The reason he came in yesterday was with ongoing issues with his leg and was sent in by Dr. Marte. He is to had chronic wounds to his lower extremities but over the past 3 to 4 days his right leg has been becoming increasingly red and painful as well. Cellulitis involves most of his tillman down into his foot. Case was discussed with Dr. Marte In the ED. In the ER was evaluated and found to have a lactate of 2.2. CRP was 6.5. 11/27 No overnight event or new complaints. Dr. Marte for wound care treatment. Low glucose on this morning. CRP minimally improved. 11/28 Patient states he is ready to go home. CRP slowly improving. A: *RLE/foot cellulitis w/Lactic Acidosis: *chronic LE wounds / venous stasis changes: *DM: A1c 7.5 *Obesity: bmi 38 *CKD III: *Anemia, chronic: *PAF: on amio/eliquis/bb *h/o systolic(40-45%)/diastolic(II) CHF: from 2019 echo -on acei/lasix/aldactone *HTN: on acei/bb P: -abx, mrsa screen neg -Dr. Marte / wound care Discharge diagnosis: Right leg cellulitis chronic wounds Secondary discharge diagnosis: Diabetes obesity chronic anemia paroxysmal atrial fibrillation systolic diastolic heart failure hypertension Time Spent with Patient Time attestation: Total time spent providing and/or coordinating discharge services: Time spent: Greater than 30 minutes EXAM Constitutional Vitals: Temp Pulse Resp BP Pulse Ox O2 Del Method 96.9 F L 48 L 16 119/74 94 11/28/21 07:47 11/28/21 07:47 11/28/21 07:47 11/28/21 07:47 11/28/21 08:25 11/28/21 08:25 Discharge Data Data Completed and Pending Labs on day of discharge: Labs from last 24 hours 11/28/21 11/28/21 05:11 05:11 Sodium 141 Potassium 4.3 Chloride 105 Carbon Dioxide 25 Anion Gap 11.0 BUN 38 H Creatinine 1.3 H GFR Calculation 54 Glucose 146 H Uric Acid 8.2 H Calcium 8.7 C-Reactive Protein 5.20 H Discharge Plan Patient/Caregiver Discharge Instructions Activity: increase activity as tolerated Diet: Regular Diet Prescriptions: New amoxicillin-pot clavulanate 875-125 mg tablet 1 tab PO BID Qty: 12 0RF Continued (DME) pen needle, diabetic 32 gauge x 5/32" needle See Rx Instructions .ROUTE .MEDSUPPLY Qty: 100 3RF Rx Instructions: Use with levemir once daily Levemir FlexTouch U-100 Insuln 100 unit/mL (3 mL) insulin pen 35 unit SUB-Q QAM Qty: 30 1RF (DME) Accu-Chek SmartView Test Strip Strip See Dose Instructions .ROUTE .MEDSUPPLY Qty: 100 3RF Dose Instruction: As directed Rx Instructions: Use to test BG once daily spironolactone [Aldactone] 25 mg tablet 25 mg PO QDAY Qty: 90 1RF metformin 1,000 mg tablet 1,000 mg PO BID Qty: 180 1RF glipizide [Glucotrol] 10 mg tablet 10 mg PO TID Qty: 270 1RF fenofibrate 160 mg tablet 160 mg tablet 160 mg PO QDAY Qty: 90 1RF lisinopril 20 mg tablet 20 mg PO QDAY Qty: 90 1RF amiodarone 200 mg tablet 200 mg PO QDAY Qty: 90 1RF furosemide [Lasix] 40 mg tablet 40 mg PO .COMPLEX Qty: 135 3RF Rx Instructions: 40 mg (1 tablet) PO each morning and 20mg (1/2 tablet) each afternoon at 2:00 p.m. metoprolol succinate [Toprol XL] 100 mg tablet extended release 24 hr 100 mg PO BID Qty: 180 1RF tramadol [Ultram] 50 mg tablet 50 mg PO Q6H PRN (Reason: pain) Qty: 60 0RF omega-3 fatty acids [Fish Oil Concentrate] 1,000 mg capsule 1,000 mg PO QDAY apixaban [Eliquis] 5 mg tablet 5 mg PO BID Other Ambulatory Orders: Wound Care Instructions (CONT) Location: None Selected Ordered By: Rebel Marte Follow Up Plan Follow up with: Rebel Marte MD [Physician] - 12/01/21 3:40 am Serafin Sy MD [Primary Care Provider] - Patient Disposition: Home, Self-Care Prognosis: Fair Rehab Potential: Fair Overall status at discharge: patient is progressing back to baseline Discharge Orders: Discharge Order (Routine); Ordered 11/28/21 [facility] Thrombosis/Pulmonary Embolism Present on Admission: No
--- NOTE | 2021-11-28 12:39 | General Surgery Progress Note ---
SUBJECTIVE Subjective Patient information: Note initiated : 11/28/21 at 12:34 pm Service Date, if different from initiated Date: [] Patient: Ovidio Veloz 71 y/o M admitted on 11/26/21 for leg pain. Chief Complaint: [] Additional PMFSH (Level 3 Only): Patient seen. Progress and d/c plan reviewed with Dr. Richards and Andrew Mcelroy RN Constitutional Vitals: Vital Signs Temp Pulse Resp BP Pulse Ox O2 Del Method 98.0 F 54 L 18 140/75 96 11/28/21 12:20 11/28/21 12:20 11/28/21 12:20 11/28/21 12:20 11/28/21 12:20 11/28/21 12:20 Period Temp Pulse Resp BP Sys/Spence Pulse Ox O2 Del Method O2 Flow Rate Last 24 Hr 96.9 F-98.0 F 48-60 16-20 119-159/74-90 94-98 Room Air-Room Air Intake and Output 11/27/21 11/28/21 11/28/21 21:59 05:59 13:59 Intake Total 1200 800 50 Balance 1200 800 50 Weight 284 lb 3 oz Intake & Output: Intake & Output 11/27/21 11/28/21 11/28/21 21:59 05:59 13:59 Intake Total 1200 800 50 Balance 1200 800 50 Weight 284 lb 3 oz Intake: IV 50 Oral 1200 800 Other: Meal snack Breakfast Percent of Meal Consumed 100% 100% Feeding Ability Independent Independent # Voids 1 1 1 Exam: AVSS. No changes KRISSY. RIGHT foot and leg cellulitis responding well A/P Narrative A/P Narrative: Assessment: Satisfactory progress, Resolving cellulitis Right foot and leg OK to d/c home on PO antibiotics per Dr. Richards Continue MIST treatment over weekend. Plan: D/C home with instructions. F/u at wound care clinic for continuity of care. . Time Spent With Patient Time: Total time spent is greater than 50% in coordination of care (as documented) at patient's floor/unit and/or counseling patient:
== END 2021-11-28 13:20 | disposition home or self-care (01) | DRG 603 ==
LOC: ED 09:31 → MEDSUR 11:57
PROVIDERS: ADMIT Internal Medicine; ATTEND Internal Medicine

== ENCOUNTER 2022-05-07 11:04 | Inpatient (IN) ==
[2022-05-07] MEDS ORDERED: PIPERACILLIN SODIUM/TAZOBACTAM 3.375 GM in DEXTROSE 5% IN WATER 50 ML IV ONE (11:26)
[2022-05-07] MEDS ORDERED: VANCOMYCIN 1,500 MG in 0.9 % SODIUM CHLORIDE 500 ML IV ONE (11:26)
--- NOTE | 2022-05-07 11:26 | Emergency Department Note ---
HPI General Chief complaint: Skin/Abscess/Rash Stated complaint: RLE Swelling/Redness/Weeping Time Seen by Provider: 05/07/22 11:22 Source: EMS Mode of arrival: EMS Limitations: no limitations History of Present Illness HPI Narrative: Narrative: This 71-year-old male presents complaining of pain to his right foot. He is a insulin-dependent diabetic who lives by himself and is not sure what pills he takes he states he takes metformin twice a day and a fixed dose of insulin twice a day. He denies fever sweats nausea vomiting diarrhea or chills shortness of breath. Patient's history is Also positive for hypertension CHF chronic renal disease and atrial fibrillation as well as reactive airway disease. Related Data Home Medications Medication Instructions Recorded Confirmed apixaban 5 mg tablet (Eliquis) 5 mg PO BID 02/16/18 03/25/22 omega-3 fatty acids 1,000 mg 1,000 mg PO QDAY 03/22/18 03/25/22 capsule (Fish Oil Concentrate) Previous Rx's Medication Instructions Recorded pen needle, diabetic 32 gauge x #100 ea 10/24/19" insulin detemir U-100 100 unit/mL 35 unit (0.35 mL) subcut QAM #30 mL 04/15/20 (3 mL) subcutaneous pen (Levemir FlexTouch U-100 Insulin) amiodarone 200 mg tablet 200 mg PO QDAY #90 tabs 09/11/21 fenofibrate 160 mg tablet 160 mg PO QDAY #90 tabs 09/11/21 lisinopril 20 mg tablet 20 mg PO QDAY #90 tabs 09/11/21 furosemide 40 mg tablet (Lasix) 40 mg PO .COMPLEX #135 tabs 10/07/21 metoprolol succinate 100 mg 100 mg PO BID #180 tabs 11/11/21 tablet,extended release 24 hr (Toprol XL) blood sugar diagnostic (Accu-Chek #100 ea 12/18/21 SmartView Test Strips) metformin 1,000 mg tablet 1,000 mg PO BID #180 tabs 12/23/21 spironolactone 25 mg tablet 25 mg PO QDAY #90 tabs 12/23/21 (Aldactone) glipizide 10 mg tablet 10 mg PO TID #270 tabs 03/03/22 sertraline 50 mg tablet 50 mg PO QHS #30 tabs 03/19/22 sitagliptin phosphate 100 mg 100 mg PO QDAY #90 tabs 03/25/22 tablet (Januvia) tramadol 50 mg tablet 50 mg PO Q6H PRN pain #60 tabs 03/25/22 Allergies Allergy/AdvReac Type Severity Reaction Status Date / Time No Known Drug Allergies Allergy Verified 03/25/22 10:07 Review of Systems ROS ROS Narrative: Narrative: All systems ED: reviewed and negative except as stated. [facility] Narrative Patient History Narrative: Narrative: Medical/Surgical/Family History All Active Problems (Updated 05/07/22 @ 12:00 by Antonio Duke MD) Cellulitis (Acute) Cellulitis of leg, right (Acute) Cellulitis of leg, right (Acute) Lower extremity ulceration (Acute) Cellulitis (Acute) Venous insufficiency (Acute) Frequent falls (Acute) Blunt head trauma (Acute) Foreign body of scalp (Acute) Lower extremity weakness (Acute) Pediculosis (Acute) Depression (Acute) BPH associated with nocturia (Acute) Lower extremity ulceration (Acute) Chronic pain (Acute) Annual physical exam (Acute) Medicare annual wellness visit, initial (Acute) Community acquired pneumonia (Acute) Congestive heart failure (Acute) Chronic kidney disease (Acute) Atrial fibrillation (Chronic) History of tonsillectomy (Acute) History of open reduction and internal fixation (ORIF) procedure (Acute) History of lumbosacral spine surgery (Acute) History of knee replacement (Acute) History of adenoidectomy (Acute) Reactive airway disease (Acute) Obesity (Acute) Neurodermatitis (Acute) Hypertension, essential (Chronic) Hyperlipidemia (Acute) Type 2 diabetes mellitus (Chronic) Dermatophytosis of groin (Acute) Cough (Acute) Colonic benign neoplasm (Acute) Ankle fracture (Acute) Medical History Ankle fracture Closed, R Annual physical exam BPH associated with nocturia Chronic pain Colonic benign neoplasm Cough Depression Dermatophytosis of groin 08/06/2014 Foreign body of scalp Hyperlipidemia Hypertension, essential 50s Lower extremity weakness Medicare annual wellness visit, initial Neurodermatitis 08/06/2014 Obesity Pediculosis Reactive airway disease Type 2 diabetes mellitus diagnosed in his 50s Surgical History History of adenoidectomy History of knee replacement left knee History of lumbosacral spine surgery decompression History of open reduction and internal fixation (ORIF) procedure Right ankle History of tonsillectomy Family History Mother , at 80 plus old age Atherosclerosis of coronary artery Essential hypertension Father , at 72 Malignant neoplasm of lung Social History Smoking Status: Smokeless tobacco Alcohol Intake Frequency: holiday/special occasion only Substance Use: does not use Exam Narrative Narrative: Narrative: General: No acute distress alert and oriented x3 answers questions cogently practices self neglect. Skin: Diffuse erythema with skin breakdown multiple areas of his right foot and +4/4 peripheral edema. Calf is nontender. Lungs: Clear to auscultation equal bilaterally without rales rhonchi or wheezes. CV: Regular rate and rhythm without murmurs clicks rubs or gallops. General Limitations: no limitations Course Vital Signs Vital signs: Vital Signs Temperature 97.4 F 05/07/22 11:05 Pulse Rate 58 L 05/07/22 11:05 Respiratory Rate 18 05/07/22 11:05 Blood Pressure 126/71 05/07/22 11:05 Pulse Oximetry (%) 98 05/07/22 11:05 Oxygen Delivery Method Room Air 05/07/22 11:05 Temperature 97.4 F 05/07/22 11:05 Pulse Rate 58 L 05/07/22 11:05 Respiratory Rate 18 05/07/22 11:05 Blood Pressure 126/71 05/07/22 11:05 Pulse Oximetry (%) 98 05/07/22 11:05 Oxygen Delivery Method Room Air 05/07/22 11:05 [facility] MDM Narrative Medical decision making narrative: Narrat patient's white count is normal at 10.2 with a left shift. His BUN/creatinine is 32 and 1.4 his glucose is only 163. There is a deep cellulitis is going to require IV antibiotics. The hospitalist was contacted for admission. Lab Data 05/07/22 11:50 05/07/22 11:50 Labs: Lab Results 05/07/22 05/07/22 05/07/22 Range/Units 11:50 11:57 12:00 WBC 10.2 (4.5-11.0) K/mcL RBC 5.18 (4.63-6.08) M/mcL Hgb 12.6 L (13.7-17.5) g/dL Hct 42.1 (40.1-51.0) % POC Hct 41.0 (41-55) MCV 81.3 (80.0-100.0) fL MCH 24.3 L (26.0-34.0) pg MCHC 29.9 L (31.0-36.0) g/dL RDW 22.4 H (11.5-14.5) % Plt Count 351 (140-440) K/mcL MPV 10.3 (8.8-12.5) fL Immature Gran % (Auto) 0.4 (0.0-0.5) % Neut % (Auto) 81.9 H (38.0-78.0) % Lymph % (Auto) 6.4 L (15.5-49.0) % [place] % (Auto) 9.8 (1.0-12.0) % Eos % (Auto) 0.9 (0.0-7.0) % Baso % (Auto) 0.6 (0.0-2.0) % Lymph # (Auto) 0.65 L (1.50-4.80) K/mcL [place] # (Auto) 1.00 H (0.10-0.90) K/mcL Eos # (Auto) 0.09 (0.00-0.70) K/mcL Baso # (Auto) 0.06 (0.00-0.30) K/mcL Immature Gran # 0.04 (0.00-0.05) K/mcl Absolute Neutrophils 8.38 H (1.80-8.00) K/mcL POC VBG pH 7.32 (7.32-7.42) POC VBG pCO2 at Temp 49.5 (41-51) POC VBG pO2 19 L (25-40) POC VBG HCO3 25.3 (24-28) POC VBG Total CO2 27.0 (25-29) POC Venous O2 Sat 24.0 L (40-70) POC VBG Base Excess -1.0 (-2-2) VBG Lactic Acid 2.0 (0.5-2) POC Sodium 140 (133-145) POC Potassium 3.9 (3.3-5.1) POC Chloride 103 (96-108) POC Total CO2 27.0 (22-30) POC BUN 32 H (6-20) POC Creatinine 1.4 H (0.6-1.2) POC Glucose 163 H (70-105) POC WB Ioniz Calcium 1.18 (1.16-1.32) Discharge Plan Patient/Caregiver Discharge Instructions Pt seen by TIME STUDY OBSERVER/PA only: No Clinical Impression: Cellulitis Patient Disposition: Xfer As Inpt ([facility]) Follow up with: Serafin Sy MD [Primary Care Provider] - Prescriptions: No Action (DME) pen needle, diabetic 32 gauge x 5/32" needle See Rx Instructions .ROUTE .MEDSUPPLY Qty: 100 3RF Rx Instructions: Use with levemir once daily Levemir FlexTouch U-100 Insuln 100 unit/mL (3 mL) insulin pen 35 unit SUB-Q QAM Qty: 30 1RF fenofibrate 160 mg tablet 160 mg tablet 160 mg PO QDAY Qty: 90 1RF lisinopril 20 mg tablet 20 mg PO QDAY Qty: 90 1RF amiodarone 200 mg tablet 200 mg PO QDAY Qty: 90 1RF furosemide [Lasix] 40 mg tablet 40 mg PO .COMPLEX Qty: 135 3RF Rx Instructions: 40 mg (1 tablet) PO each morning and 20mg (1/2 tablet) each afternoon at 2:00 p.m. metoprolol succinate [Toprol XL] 100 mg tablet extended release 24 hr 100 mg PO BID Qty: 180 1RF (DME) Accu-Chek SmartView Test Strip Strip See Dose Instructions .ROUTE .MEDSUPPLY Qty: 100 3RF Dose Instruction: As directed Rx Instructions: Use to test BG once daily spironolactone [Aldactone] 25 mg tablet 25 mg PO QDAY Qty: 90 1RF metformin 1,000 mg tablet 1,000 mg PO BID Qty: 180 1RF glipizide 10 mg tablet 10 mg PO TID Qty: 270 1RF sertraline 50 mg tablet 50 mg PO QHS Qty: 30 1RF Januvia 100 mg tablet 100 mg PO QDAY Qty: 90 1RF omega-3 fatty acids [Fish Oil Concentrate] 1,000 mg capsule 1,000 mg PO QDAY apixaban [Eliquis] 5 mg tablet 5 mg PO BID tramadol 50 mg tablet 50 mg PO Q6H PRN (Reason: pain) Qty: 60 0RF
[2022-05-07 12:03] LABS: POC Calcium, Ionized 1.18 (1.16-1.32); POC Creatinine 1.4 (0.6-1.2); POC Potassium 3.9 (3.3-5.1)
[2022-05-07] MEDS ORDERED: diphenhydrAMINE 50 MG/ML VIAL IV ONE (12:12)
[2022-05-07 12:43] LABS: Basophils # (Auto) 0.06 K/mcL (0.00-0.30); Basophils % (Auto) 0.6 % (0.0-2.0); Eosinophils # (Auto) 0.09 K/mcL (0.00-0.70); Eosinophils % (Auto) 0.9 % (0.0-7.0); Hematocrit 42.1 % (40.1-51.0); Hemoglobin 12.6 g/dL (13.7-17.5); Lymphocytes # (Auto) 0.65 K/mcL (1.50-4.80); Lymphocytes % (Auto) 6.4 % (15.5-49.0); Mean Cell Volume 81.3 fL (80.0-100.0); Mean Corpuscular HGB Conc 29.9 g/dL (31.0-36.0); Mean Platelet Volume 10.3 fL (8.8-12.5); Monocytes % (Auto) 9.8 % (1.0-12.0); Neutrophils % (Auto) 81.9 % (38.0-78.0); Platelet Count 351 K/mcL (140-440); RBC 5.18 M/mcL (4.63-6.08); Red Cell Distribution Width 22.4 % (11.5-14.5); WBC 10.2 K/mcL (4.5-11.0)
--- NOTE | 2022-05-07 12:59 | Internal Med History&Physical ---
HPI History of Present Illness Patient information: Note initiated : 05/07/22 at 12:58 pm Service Date, if different from initiated Date: [] Patient: Ovidio Veloz a 71 y/o M admitted on for RLE Swelling/Redness/Weeping. Chief Complaint: [] History of present illness: Mr. Veloz is a 71 year old M With history of recurrent right foot infection and history of diabetes and obesity. Has history of chronic wounds. He was last admitted in November for s everal days for the same thing. Patient states his right foot gets bad then he gets better than he gets bad again. Patient dates about 3 days ago right foot and ankle started swelling becoming increasingly red and tender. He has had some drainage generalized over it which is clear yellow. Patient says he feels little lightheaded when he gets up moves around. Denies any fevers or chills. Will obtain MRI to rule out osteo of the foot. Contact wound care team. Review of Systems: Pertinent positives as above. Denies headache/fever/chills/nausea/vomiting/chest or abdominal pain/cough/dyspnea/d iarrhea. Remaining 10 point review of system reviewed negative PFSH PFSH All Active Problems (Updated 05/07/22 @ 12:00 by Antonio Duke MD) Cellulitis (Acute) Cellulitis of leg, right (Acute) Cellulitis of leg, right (Acute) Lower extremity ulceration (Acute) Cellulitis (Acute) Venous insufficiency (Acute) Frequent falls (Acute) Blunt head trauma (Acute) Foreign body of scalp (Acute) Lower extremity weakness (Acute) Pediculosis (Acute) Depression (Acute) BPH associated with nocturia (Acute) Lower extremity ulceration (Acute) Chronic pain (Acute) Annual physical exam (Acute) Medicare annual wellness visit, initial (Acute) Community acquired pneumonia (Acute) Congestive heart failure (Acute) Chronic kidney disease (Acute) Atrial fibrillation (Chronic) History of tonsillectomy (Acute) History of open reduction and internal fixation (ORIF) procedure (Acute) History of lumbosacral spine surgery (Acute) History of knee replacement (Acute) History of adenoidectomy (Acute) Reactive airway disease (Acute) Obesity (Acute) Neurodermatitis (Acute) Hypertension, essential (Chronic) Hyperlipidemia (Acute) Type 2 diabetes mellitus (Chronic) Dermatophytosis of groin (Acute) Cough (Acute) Colonic benign neoplasm (Acute) Ankle fracture (Acute) Medical History Ankle fracture Closed, R Annual physical exam BPH associated with nocturia Chronic pain Colonic benign neoplasm Cough Depression Dermatophytosis of groin 08/06/2014 Foreign body of scalp Hyperlipidemia Hypertension, essential 50s Lower extremity weakness Medicare annual wellness visit, initial Neurodermatitis 08/06/2014 Obesity Pediculosis Reactive airway disease Type 2 diabetes mellitus diagnosed in his 50s Surgical History History of adenoidectomy History of knee replacement left knee History of lumbosacral spine surgery decompression History of open reduction and internal fixation (ORIF) procedure Right ankle History of tonsillectomy Family History Mother , at 80 plus old age Atherosclerosis of coronary artery Essential hypertension Father , at 72 Malignant neoplasm of lung Social History marital status: education level: high school occupation: Transportation smoking status: Former smoker alcohol intake frequency: holiday/special occasion only substance use type: does not use additional history: chewing tobacco since age 13 MEDS/ALLERGIES Home Medications and Allergies Home Medications Medication Instructions Recorded Confirmed Type apixaban 5 mg tablet (Eliquis) 5 mg PO BID 02/16/18 03/25/22 History omega-3 fatty acids 1,000 mg 1,000 mg PO QDAY 03/22/18 03/25/22 History capsule (Fish Oil Concentrate) pen needle, diabetic 32 gauge x #100 ea 10/24/19 03/25/22 Rx " insulin detemir U-100 100 unit/mL 35 unit (0.35 mL) subcut QAM #30 mL 04/15/20 03/25/22 Rx (3 mL) subcutaneous pen (Levemir FlexTouch U-100 Insulin) amiodarone 200 mg tablet 200 mg PO QDAY #90 tabs 09/11/21 03/25/22 Rx fenofibrate 160 mg tablet 160 mg PO QDAY #90 tabs 09/11/21 03/25/22 Rx lisinopril 20 mg tablet 20 mg PO QDAY #90 tabs 09/11/21 03/25/22 Rx furosemide 40 mg tablet (Lasix) 40 mg PO .COMPLEX #135 tabs 10/07/21 03/25/22 Rx metoprolol succinate 100 mg 100 mg PO BID #180 tabs 11/11/21 03/25/22 Rx tablet,extended release 24 hr (Toprol XL) blood sugar diagnostic (Accu-Chek #100 ea 12/18/21 03/25/22 Rx SmartView Test Strips) metformin 1,000 mg tablet 1,000 mg PO BID #180 tabs 12/23/21 03/25/22 Rx spironolactone 25 mg tablet 25 mg PO QDAY #90 tabs 12/23/21 03/25/22 Rx (Aldactone) glipizide 10 mg tablet 10 mg PO TID #270 tabs 03/03/22 03/25/22 Rx sertraline 50 mg tablet 50 mg PO QHS #30 tabs 03/19/22 03/25/22 Rx sitagliptin phosphate 100 mg 100 mg PO QDAY #90 tabs 03/25/22 Rx tablet (Januvia) tramadol 50 mg tablet 50 mg PO Q6H PRN pain #60 tabs 03/25/22 03/25/22 Rx Allergies Allergy/AdvReac Type Severity Reaction Status Date / Time No Known Drug Allergies Allergy Verified 03/25/22 10:07 EXAM Constitutional Vitals: Temp Pulse Resp BP Pulse Ox O2 Del Method 97.4 F 58 L 18 126/71 98 Room Air 05/07/22 11:05 05/07/22 11:05 05/07/22 11:05 05/07/22 11:05 05/07/22 11:05 05/07/22 11:05 Exam: General: Alert, Awake, No acute Distress, obese: Eyes/N/T: EOMI, PERRL, Head/Neck: neck supple, normocephalic atraumatic CV: RRR, No murmurs, normal s1/s2 Pulm: Clear b/l, no wheezing/rhonchi/rales Abd: soft, nontender, +BS x4 Ext: no clubbing/cyanosis, b/l LE Edema. RLE Erythema/edema/TTP Neuro: Alert, no focal deficits, moves all extremities, CN 2-12 grossly intact, sensations intact b/l upper/lower Skin: warm/dry DATA Data Completed and Pending Labs: Labs from last 24 hours 05/07/22 05/07/22 05/07/22 12:00 11:57 11:50 WBC RBC Hgb Hct POC Hct 41.0 MCV MCH MCHC RDW Plt Count MPV Immature Gran % (Auto) Neut % (Auto) Lymph % (Auto) [place] % (Auto) Eos % (Auto) Baso % (Auto) Lymph # (Auto) [place] # (Auto) Eos # (Auto) Baso # (Auto) Immature Gran # Absolute Neutrophils POC VBG pH 7.32 POC VBG pCO2 at Temp 49.5 POC VBG pO2 19 L POC VBG HCO3 25.3 POC VBG Total CO2 27.0 POC Venous O2 Sat 24.0 L POC VBG Base Excess -1.0 VBG Lactic Acid 2.0 POC Sodium 140 Sodium Pending POC Potassium 3.9 Potassium Pending POC Chloride 103 Chloride Pending Carbon Dioxide Pending POC Total CO2 27.0 Anion Gap Pending POC BUN 32 H BUN Pending Creatinine Pending POC Creatinine 1.4 H GFR Calculation Pending Glucose Pending POC Glucose 163 H Hemoglobin A1c Pending Estim Average Glucose Pending Calcium Pending POC WB Ioniz Calcium 1.18 Total Bilirubin Pending AST Pending ALT Pending Alkaline Phosphatase Pending Total Protein Pending Albumin Pending Globulin Pending Albumin/Globulin Ratio Pending 05/07/22 11:50 WBC 10.2 RBC 5.18 Hgb 12.6 L Hct 42.1 POC Hct MCV 81.3 MCH 24.3 L MCHC 29.9 L RDW 22.4 H Plt Count 351 MPV 10.3 Immature Gran % (Auto) 0.4 Neut % (Auto) 81.9 H Lymph % (Auto) 6.4 L [place] % (Auto) 9.8 Eos % (Auto) 0.9 Baso % (Auto) 0.6 Lymph # (Auto) 0.65 L [place] # (Auto) 1.00 H Eos # (Auto) 0.09 Baso # (Auto) 0.06 Immature Gran # 0.04 Absolute Neutrophils 8.38 H POC VBG pH POC VBG pCO2 at Temp POC VBG pO2 POC VBG HCO3 POC VBG Total CO2 POC Venous O2 Sat POC VBG Base Excess VBG Lactic Acid POC Sodium Sodium POC Potassium Potassium POC Chloride Chloride Carbon Dioxide POC Total CO2 Anion Gap POC BUN BUN Creatinine POC Creatinine GFR Calculation Glucose POC Glucose Hemoglobin A1c Estim Average Glucose Calcium POC WB Ioniz Calcium Total Bilirubin AST ALT Alkaline Phosphatase Total Protein Albumin Globulin Albumin/Globulin Ratio A/P Narrative A/P Narrative: A: *RLE/foot REcurrent cellulitis: *chronic LE wounds / venous stasis changes: *DM: A1c 8.0 *Obesity: bmi 37 *CKD III: *Anemia, chronic: *PAF: on amio/eliquis/bb *h/o systolic(40-45)/diastolic(II) CHF: from 2019 echo -on acei/lasix/aldactone *HTN: on acei/bb P: -IV Cefepime, pending WC/BC, mrsa screen -Dr. Marte / wound care -MRI foot -Check ESR/CRP -cont amio/bb/acie -Continue Lasix/Aldactone -basal and ssi -PT/OT -Home medication reconciliation -ppx: Eliquis Code: cpr ok, No Intubation Time Spent With Patient Time: Total time spent is greater than 50% in coordination of care (as documented) at patient's floor/unit and/or counseling patient: Initial: Total time with patient: 75 - 90 minutes
[2022-05-07 13:00] LABS: ALT/SGPT 7 U/L (<40); AST/SGOT 13 U/L (<40); Albumin 3.6 gm/dL (3.2-5.2); Alkaline Phosphatase 49 U/L (39-117); Blood Urea Nitrogen 30 mg/dL (8-23); Calcium 9.4 mg/dL (8.6-10.4); Carbon Dioxide 25 mmol/L (22-30); Chloride 101 mmol/L (96-108); Globulin 3.6 gm/dL (2.2-3.7); Glomerular Filtration Rate 54; Glucose 162 mg/dL (70-105)
[2022-05-07 13:49] LABS: Estimated Average Glucose(eAG) 163 mg/dL; Hemoglobin A1C 7.3 % Hgb (4.0-6.0)
[2022-05-07] MEDS ORDERED: POTASSIUM CHLORIDE 20 MEQ TABLET PO PRN ×2 (14:09)
[2022-05-07] MEDS ORDERED: DEXTROSE 31 GM ORAL.SUSP PO PRN (14:09)
[2022-05-07] MEDS ORDERED: IPRATROPIUM/ALBUTEROL 3 ML AMPUL.NEB NEB PRN (14:09)
[2022-05-07] MEDS ORDERED: POTASSIUM CHLORIDE 40 MEQ in DEXTROSE 5% IN WATER 500 ML IV PRN (14:09)
[2022-05-07] MEDS ORDERED: DEXTROSE 50% 50 ML VIAL IV PRN (14:09)
[2022-05-07] MEDS ORDERED: ACETAMINOPHEN 325 MG TABLET PO PRN (14:09)
[2022-05-07] MEDS ORDERED: POLYETHYLENE GLYCOL 3350 17 GM PACKET PO PRN (14:09)
[2022-05-07] MEDS ORDERED: METOPROLOL TARTRATE 5 MG/5 ML VIAL IV PRN (14:09)
[2022-05-07] MEDS ORDERED: ONDANSETRON 4 MG/2 ML VIAL IV PRN (14:09)
[2022-05-07] MEDS ORDERED: SENNOSIDES 1 TABLET PO PRN (14:09)
[2022-05-07] MEDS ORDERED: MAGNESIUM SULFATE 2 GM/50 ML BAG IV PRN (14:09)
--- NOTE | 2022-05-07 15:00 | Magnetic Resonance Report ---
INDICATION: Foot/Ankle, RECURRENT cellulitis/diabetes TECHNIQUE: Routine MRI of the right foot. Intravenous contrast material was not administered COMPARISON: Previous plain film examination dated 11/25/2021. Previous CT scan dated 03/19/2022 FINDINGS: There is subcutaneous edema. No focal fluid collection. No detectable gas bubbles. Osseous structures are unremarkable. No bone marrow edema. No cortical destruction. No evidence for osteomyelitis. Plantar upon neurosis and Achilles tendon are intact. Anterior, medial, and lateral tendons are grossly normal. IMPRESSION: 1. Soft tissue edema without focal abnormality 2. No evidence for osteomyelitis Interpreted and Authenticated by: Scott Lorenzana 05/07/22
[2022-05-07] MEDS: 0.9 % SODIUM CHLORIDE 10 ML SYRINGE IV SCH ×2 (15:52→19:40)
[2022-05-07] MEDS: CEFEPIME 2 GM VIAL IV SCH (15:52)
[2022-05-07] MEDS: HYDROcodone/APAP 5/325MG TABLET PO PRN (16:25)
[2022-05-07] MEDS: INSULIN LISPRO 1 UNIT/0.01 ML UNIT SQ SCH ×2 (17:02→22:00)
[2022-05-07] MEDS: DOCUSATE SODIUM 100 MG CAPSULE PO SCH (22:00)
[2022-05-08] MEDS: CEFEPIME 2 GM VIAL IV SCH ×3 (02:47→21:01)
[2022-05-08] MEDS: 0.9 % SODIUM CHLORIDE 10 ML SYRINGE IV SCH ×3 (06:43→21:01)
[2022-05-08] MEDS: INSULIN LISPRO 1 UNIT/0.01 ML UNIT SQ SCH ×4 (06:45→21:02)
--- NOTE | 2022-05-08 07:32 | Internal Med Progress Note ---
SUBJECTIVE Subjective Patient information: Note initiated : 05/08/22 at 7:28 am Service Date, if different from initiated Date: [] Patient: Ovidio Veloz a 71 y/o M admitted on 05/07/22 for RLE Swelling/ Redness/Weeping. Chief Complaint: [] Interval history: History of present illness: Mr. Veloz is a 71 year old M With history of recurrent right foot infection and history of diabetes and obesity. Has history of chronic wounds. He was last admitted in November for several days for the same thing. Patient states his right foot gets bad then he gets better than he gets bad again. Patient dates about 3 days ago right foot and ankle started swelling becoming increasingly red and tender. He has had some drainage generalized over it which is clear yellow. Patient says he feels little lightheaded when he gets up moves around. Denies any fevers or chills. Will obtain MRI to rule out osteo of the foot. Contact wound care team. 2/ MRI and no osteo or abscess noted. Pending further treatment recommendations by wound care team Dr. Marte. Patient says foot similar yesterday as far as swelling tenderness. No other acute events or new complaints. Review of Systems: denies headache/fever/chills/nausea/vomiting/chest or abdominal pain/coug h/dyspnea/diarrhea. Otherwise see above. Constitutional Vitals: Vital Signs Temp Pulse Resp BP Pulse Ox O2 Del Method O2 Flow Rate 98.1 F 61 16 101/57 94 Room Air 100 05/08/22 03:20 05/08/22 03:20 05/08/22 03:20 05/08/22 03:20 05/08/22 03:20 05/08/22 03:20 05/07/22 19:30 Period Temp Pulse Resp BP Sys/Spence Pulse Ox O2 Del Method O2 Flow Rate Last 24 Hr 97.4 F-98.8 F 57-62 16-20 101-138/57-85 94-100 Room Air-Room Air 100 Intake and Output 05/07/22 05/08/22 05/08/22 19:59 03:59 11:59 Intake Total 1350 300 Output Total 300 300 Balance 1050 300 -300 Weight 125.645 kg Intake & Output: Intake & Output 05/07/22 05/08/22 05/08/22 19:59 03:59 11:59 Intake Total 1350 300 Output Total 300 300 Balance 1050 300 -300 Weight 125.645 kg Intake: IV 550 Zosyn 3.375 gm In Dextrose 5% 50 in Water 50 ml @ 100 mls/hr IV ONCE ONE Rx#:[id number] Vancomycin 1,500 mg In Sodium 500 Chloride 0.9% 500 ml @ 333.3 mls/hr IV ONCE ONE Rx#: [id number] Oral 800 300 Output: Void Amount 300 300 Other: Meal Dinner Percent of Meal Consumed 50% Feeding Ability Independent Urine Appearance Clear Cloudy Clear Urine Color Dark Yellow Dark Millicent Dark Millicent Urine Odor Foul Foul Exam: General: Alert, Awake, No acute Distress, obese: Eyes/N/T: EOMI, Head/Neck: neck supple, CV: RRR, No murmurs, Pulm: Clear b/l, no wheezing/rhonchi/rales Abd: soft, nontender, +BS x4 Ext: no clubbing/cyanosis, b/l LE Edema. RLE Erythema/edema/TTP Neuro: Alert, no focal deficits, moves all extremities, Skin: warm/dry OBJ DATA Labs 05/07/22 11:50 05/07/22 11:50 Labs: Abnormal Lab Results 05/07/22 05/07/22 05/07/22 12:00 11:57 11:50 Hgb MCH MCHC RDW Neut % (Auto) Lymph % (Auto) Lymph # (Auto) [place] # (Auto) Absolute Neutrophils ESR POC VBG pO2 19 L POC Venous O2 Sat 24.0 L POC BUN 32 H BUN 30 H Creatinine 1.3 H POC Creatinine 1.4 H Glucose 162 H POC Glucose 163 H Hemoglobin A1c 7.3 H C-Reactive Protein 05/07/22 05/07/22 05/07/22 11:50 11:32 11:32 Hgb 12.6 L MCH 24.3 L MCHC 29.9 L RDW 22.4 H Neut % (Auto) 81.9 H Lymph % (Auto) 6.4 L Lymph # (Auto) 0.65 L [place] # (Auto) 1.00 H Absolute Neutrophils 8.38 H ESR 44 H POC VBG pO2 POC Venous O2 Sat POC BUN BUN Creatinine POC Creatinine Glucose POC Glucose Hemoglobin A1c C-Reactive Protein 7.70 H Meds: Medications Acetaminophen (Acetaminophen 325 Mg Tablet) 650 mg PO Q6HP PRN; Protocol PRN Reason: Per Pain Protocol/Fever > 101 Hydrocodone Bitart/Acetaminophen (Hydrocodone/Apap 5/325mg Tablet) 1 tab PO Q4HP PRN PRN Reason: PAIN LEVEL 3-6 Last Admin: 05/07/22 16:25 Dose: 1 tab Albuterol/Ipratropium (Ipratropium/Albuterol 3 Ml Ampul.Neb) 3 ml NEB Q4HP PRN PRN Reason: Shortness Of Breath Cefepime HCl (Cefepime 2 Gm Vial) 2 gm IV Q12H [facility]; Protocol Last Admin: 05/08/22 02:47 Dose: 2 gm Dextrose (Dextrose 50% 50 Ml Vial) 0 ml IV UD PRN PRN Reason: Per Sliding Scale Diagnostic Test (Pha) (Accu-Chek 1 Each Strip) 1 each FS [facility] Last Admin: 05/08/22 06:45 Dose: 1 each Docusate Sodium (Docusate Sodium 100 Mg Capsule) 100 mg PO BID [facility] Last Admin: 05/07/22 22:00 Dose: 100 mg Glucose (Dextrose 31 Gm Oral.Susp) 15 gm PO PRN PRN PRN Reason: Hypoglycemia Potassium Chloride 40 meq/ (Dextrose) 520 mls @ 130 mls/hr IV UD PRN PRN Reason: Potassium < 3 Magnesium Sulfate (Magnesium Sulfate) 2 gm in 50 mls @ 50 mls/hr IV UD PRN PRN Reason: Magnesium </= 1.6 Insulin Human Lispro (Insulin Lispro 1 Unit/0.01 Ml Unit) 0 unit SQ [facility]; Protocol Last Admin: 05/08/22 06:45 Dose: Not Given Metoprolol Tartrate (Metoprolol Tartrate 5 Mg/5 Ml Vial) 5 mg IV Q2HP PRN PRN Reason: Tachyarrhythmias HR>110 Ondansetron HCl (Ondansetron 4 Mg/2 Ml Vial) 4 mg IV Q4HP PRN PRN Reason: Nausea And Vomiting Polyethylene Glycol (Polyethylene Glycol 3350 17 Gm Packet) 17 gm PO DAILYP PRN PRN Reason: Constipation Potassium Chloride (Potassium Chloride 20 Meq Tablet) 40 meq PO UD PRN PRN Reason: Potssium is 3-3.5 Potassium Chloride (Potassium Chloride 20 Meq Tablet) 40 meq PO UD PRN PRN Reason: Potassium < 3 Senna (Sennosides 1 Tablet) 2 tab PO DAILYP PRN PRN Reason: Constipation Sodium Chloride (0.9 % Sodium Chloride 10 Ml Syringe) 10 ml IV Q8 JOHNNY Last Admin: 05/08/22 06:43 Dose: 10 ml A/P Narrative A/P Narrative: A: *RLE/foot REcurrent cellulitis: -MRI no osteo *chronic LE wounds / venous stasis changes: *DM: A1c 8.0 *Obesity: bmi 37 *CKD III: *Anemia, chronic: *PAF: on amio/eliquis/bb *h/o systolic(40-45)/diastolic(II) CHF: from 2019 echo -on acei/lasix/aldactone *HTN: on acei/bb P: -IV Cefepime, pending WC/BC, mrsa screen neg -Dr. Marte / wound care -f/u ESR/CRP -cont amio/bb/acie -Continue Lasix/Aldactone -basal and ssi -PT/OT -Home medication reconciliation -ppx: Eliquis Code: cpr ok, No Intubation Time Spent With Patient Time: Total time spent is greater than 50% in coordination of care (as documented) at patient's floor/unit and/or counseling patient: Subsequent: Total time with patient: 35 - 49 minutes QUALITY Stroke Symptom Onset Unknown: No VTE Deep Vein Thrombosis/Pulmonary Embolism Present on Admission: No
[2022-05-08 08:24] LABS: Basophils # (Auto) 0.07 K/mcL (0.00-0.30); Basophils % (Auto) 0.8 % (0.0-2.0); Eosinophils # (Auto) 0.12 K/mcL (0.00-0.70); Eosinophils % (Auto) 1.4 % (0.0-7.0); Hematocrit 40.2 % (40.1-51.0); Hemoglobin 12.1 g/dL (13.7-17.5); Lymphocytes # (Auto) 0.69 K/mcL (1.50-4.80); Lymphocytes % (Auto) 7.8 % (15.5-49.0); Mean Cell Volume 81.2 fL (80.0-100.0); Mean Corpuscular HGB Conc 30.1 g/dL (31.0-36.0); Mean Platelet Volume 10.3 fL (8.8-12.5); Monocytes # (Auto) 0.97 K/mcL (0.10-0.90); Monocytes % (Auto) 10.9 % (1.0-12.0); Neutrophils % (Auto) 78.8 % (38.0-78.0); Platelet Count 349 K/mcL (140-440); RBC 4.95 M/mcL (4.63-6.08); Red Cell Distribution Width 22.4 % (11.5-14.5); WBC 8.9 K/mcL (4.5-11.0)
[2022-05-08 08:35] LABS: ALT/SGPT 8 U/L (<40); AST/SGOT 13 U/L (<40); Albumin 3.2 gm/dL (3.2-5.2); Alkaline Phosphatase 49 U/L (39-117); Bilirubin,Direct 0.7 mg/dL (<0.3); Bilirubin,Total 1.2 mg/dL (0.1-1.0); Blood Urea Nitrogen 30 mg/dL (8-23); Carbon Dioxide 25 mmol/L (22-30); Chloride 102 mmol/L (96-108); Globulin 3.3 gm/dL (2.2-3.7); Glomerular Filtration Rate 54; Glucose 125 mg/dL (70-105); Lactate Dehydrogenase 228 U/L (135-225); Phosphorous 2.8 mg/dL (2.5-4.5); Triglycerides 100 mg/dL (<150); Uric Acid 7.5 mg/dL (2.5-8.0)
[2022-05-08] MEDS: DOCUSATE SODIUM 100 MG CAPSULE PO SCH ×2 (09:27→21:01)
[2022-05-08] MEDS: HYDROcodone/APAP 5/325MG TABLET PO PRN ×2 (11:02→22:07)
[2022-05-08] MEDS: FUROSEMIDE 20 MG TABLET PO SCH (13:01)
--- NOTE | 2022-05-08 13:21 | General Surgery Consult Note ---
[facility] Date of Consult Consult Date: 05/08/22 Requesting physician: Zeeshan Richards Primary Care Provider: Serafin Sy MD Consult Narrative Patient Information: Note initiated : 05/08/22 at 1:17 pm Service Date, if different from initiated Date: [] Patient: Ovidio Veloz 71 y/o M admitted on 05/07/22 for RLE Swelling/Redness/Weeping. Chief Complaint: [] cc:: Evaluation of patient for wounds of RIGHT and left lower ( R >> L) legs and cellulitis. Patient admitted via ER with recurrence of same problems as before. See HPI. Reviewed notes from ER and Hospitalist Physicians. Examined patient's wounds with Andrew Mcelroy RN In patient wound care nurse. CC: Zeeshan Richards Integumentary Integumentary: Present as per HPI Additional comments: Lymphedema / Cellulitis and Lymphorrhea both legs RIGHT >> Left. Neurological Additional comments: Neuropathy PFSH PFSH All Active Problems Cellulitis (Acute) Cellulitis of leg, right (Acute) Cellulitis of leg, right (Acute) Lower extremity ulceration (Acute) Cellulitis (Acute) Venous insufficiency (Acute) Frequent falls (Acute) Blunt head trauma (Acute) Foreign body of scalp (Acute) Lower extremity weakness (Acute) Pediculosis (Acute) Depression (Acute) BPH associated with nocturia (Acute) Lower extremity ulceration (Acute) Chronic pain (Acute) Annual physical exam (Acute) Medicare annual wellness visit, initial (Acute) Community acquired pneumonia (Acute) Congestive heart failure (Acute) Chronic kidney disease (Acute) Atrial fibrillation (Chronic) History of tonsillectomy (Acute) History of open reduction and internal fixation (ORIF) procedure (Acute) History of lumbosacral spine surgery (Acute) History of knee replacement (Acute) History of adenoidectomy (Acute) Reactive airway disease (Acute) Obesity (Acute) Neurodermatitis (Acute) Hypertension, essential (Chronic) Hyperlipidemia (Acute) Type 2 diabetes mellitus (Chronic) Dermatophytosis of groin (Acute) Cough (Acute) Colonic benign neoplasm (Acute) Ankle fracture (Acute) Medical History Ankle fracture Closed, R Annual physical exam BPH associated with nocturia Chronic pain Colonic benign neoplasm Cough Depression Dermatophytosis of groin 08/06/2014 Foreign body of scalp Hyperlipidemia Hypertension, essential 50s Lower extremity weakness Medicare annual wellness visit, initial Neurodermatitis 08/06/2014 Obesity Pediculosis Reactive airway disease Type 2 diabetes mellitus diagnosed in his 50s Surgical History History of adenoidectomy History of knee replacement left knee History of lumbosacral spine surgery decompression History of open reduction and internal fixation (ORIF) procedure Right ankle History of tonsillectomy Family History Mother , at 80 plus old age Atherosclerosis of coronary artery Essential hypertension Father , at 72 Malignant neoplasm of lung Social History marital status: education level: high school occupation: Transportation smoking status: Former smoker alcohol intake frequency: holiday/special occasion only substance use type: does not use additional history: chewing tobacco since age 13 MEDS/ALLERGIES Home Medications and Allergies Home Medications Medication Instructions Recorded Confirmed Type apixaban 5 mg tablet (Eliquis) 5 mg PO BID 02/16/18 05/08/22 History omega-3 fatty acids 1,000 mg 1,000 mg PO QDAY 03/22/18 05/08/22 History capsule (Fish Oil Concentrate) pen needle, diabetic 32 gauge x #100 ea 10/24/19 05/08/22 Rx " insulin detemir U-100 100 unit/mL 35 unit (0.35 mL) subcut QAM #30 mL 04/15/20 05/08/22 Rx (3 mL) subcutaneous pen (Levemir FlexTouch U-100 Insulin) amiodarone 200 mg tablet 200 mg PO QDAY #90 tabs 09/11/21 05/08/22 Rx fenofibrate 160 mg tablet 160 mg PO QDAY #90 tabs 09/11/21 05/08/22 Rx lisinopril 20 mg tablet 20 mg PO QDAY #90 tabs 09/11/21 05/08/22 Rx furosemide 40 mg tablet (Lasix) 40 mg PO .COMPLEX #135 tabs 10/07/21 05/08/22 Rx metoprolol succinate 100 mg 100 mg PO BID #180 tabs 11/11/21 05/08/22 Rx tablet,extended release 24 hr (Toprol XL) blood sugar diagnostic (Accu-Chek #100 ea 12/18/21 05/08/22 Rx SmartView Test Strips) metformin 1,000 mg tablet 1,000 mg PO BID #180 tabs 12/23/21 05/08/22 Rx spironolactone 25 mg tablet 25 mg PO QDAY #90 tabs 12/23/21 05/08/22 Rx (Aldactone) glipizide 10 mg tablet 10 mg PO TID #270 tabs 03/03/22 05/08/22 Rx sertraline 50 mg tablet 50 mg PO QHS #30 tabs 03/19/22 05/08/22 Rx sitagliptin phosphate 100 mg 100 mg PO QDAY #90 tabs 03/25/22 05/08/22 Rx tablet (Januvia) tramadol 50 mg tablet 50 mg PO Q6H PRN pain #60 tabs 03/25/22 05/08/22 Rx blood sugar diagnostic (Accu-Chek 05/07/22 05/08/22 History SmartView Test Strips) Allergies Allergy/AdvReac Type Severity Reaction Status Date / Time No Known Drug Allergies Allergy Verified 03/25/22 10:07 Physical Examination Vital Signs Vital signs: Temp Pulse Resp BP Pulse Ox O2 Del Method O2 Flow Rate 97.4 F 71 16 126/75 100 Room Air 100 05/08/22 12:05/08/22 12:05/08/22 12:05/08/22 12:05/08/22 12:05/08/22 12:05/07/22 19:30 General physical appearance General physical exam: well developed, well nourished, moderate distress and other (Poor dental hygiene.) Eyes Eye exam: PERRL and normal ocular movement ENT ENT exam: normal pinna, normal mucosa and no congestion Head Head exam IM: Present atraumatic and normocephalic Neck Neck exam: no masses and no venous distension Cardiovascular Cardiovascular exam IM: Present normal rate and rhythm Peripheral pulses: 1+: dorsalis pedis (L) and dorsalis pedis (R) Respiratory Respiratory exam: normal expansion, normal respiratory effort and clear to auscultation Abdomen Abdomen: Present non tender and bowel sounds Integumentary Integumentary: Present other (Cellulitis , rash RIGHT foot >> than LEFT and Stage 1 ulcers with Lymphorrhea. RIGH Tlower leg.) Neurologic Neurologic: Present other (Periphreal neuropathy) Musculoskeletal Musculoskeletal: Present other (Brittle, deformed toe nails with fungal debris.) Psychiatric Psychiatric: Present oriented to time, oriented to person, oriented to place, speech is normal and other (NOT happy about being in hospital. Wants Pet Dogs tob e care for. ) Results Labs 05/08/22 06:23 05/08/22 06:22 Labs: Abnormal lab results 05/07/22 05/07/22 05/07/22 Range/Units 11:32 11:32 11:50 Hgb (13.7-17.5) g/dL MCH (26.0-34.0) pg MCHC (31.0-36.0) g/dL RDW (11.5-14.5) % Neut % (Auto) (38.0-78.0) % Lymph % (Auto) (15.5-49.0) % Lymph # (Auto) (1.50-4.80) K/mcL [place] # (Auto) (0.10-0.90) K/mcL ESR 44 H (0-20) mm/hr BUN (8-23) mg/dL Creatinine (0.7-1.2) mg/dL Glucose (70-105) mg/dL Hemoglobin A1c 7.3 H (4.0-6.0) % Hgb Total Bilirubin (0.1-1.0) mg/dL Direct Bilirubin (<0.3) mg/dL Lactate Dehydrogenase (135-225) U/L C-Reactive Protein 7.70 H (0.03-0.80) mg/dL 05/08/22 05/08/22 Range/Units 06:22 06:23 Hgb 12.1 L (13.7-17.5) g/dL MCH 24.4 L (26.0-34.0) pg MCHC 30.1 L (31.0-36.0) g/dL RDW 22.4 H (11.5-14.5) % Neut % (Auto) 78.8 H (38.0-78.0) % Lymph % (Auto) 7.8 L (15.5-49.0) % Lymph # (Auto) 0.69 L (1.50-4.80) K/mcL [place] # (Auto) 0.97 H (0.10-0.90) K/mcL ESR (0-20) mm/hr BUN 30 H (8-23) mg/dL Creatinine 1.3 H (0.7-1.2) mg/dL Glucose 125 H (70-105) mg/dL Hemoglobin A1c (4.0-6.0) % Hgb Total Bilirubin 1.2 H (0.1-1.0) mg/dL Direct Bilirubin 0.7 H (<0.3) mg/dL Lactate Dehydrogenase 228 H (135-225) U/L C-Reactive Protein (0.03-0.80) mg/dL Diabetes panel 05/07/22 05/08/22 Range/Units 11:50 06:22 Sodium 139 (133-145) mmol/L Potassium 3.9 (3.3-5.1) mmol/L Chloride 102 (96-108) mmol/L Carbon Dioxide 25 (22-30) mmol/L BUN 30 H (8-23) mg/dL Creatinine 1.3 H (0.7-1.2) mg/dL Glucose 125 H (70-105) mg/dL Hemoglobin A1c 7.3 H (4.0-6.0) % Hgb Calcium 9.0 (8.6-10.4) mg/dL AST 13 (<40) U/L ALT 8 (<40) U/L Alkaline Phosphatase 49 (39-117) U/L Total Protein 6.5 (5.9-8.4) gm/dL Albumin 3.2 (3.2-5.2) gm/dL Triglycerides 100 (<150) mg/dL Calcium panel 05/08/22 Range/Units 06:22 Calcium 9.0 (8.6-10.4) mg/dL Phosphorus 2.8 (2.5-4.5) mg/dL Albumin 3.2 (3.2-5.2) gm/dL Pituitary panel 05/08/22 Range/Units 06:22 Sodium 139 (133-145) mmol/L Potassium 3.9 (3.3-5.1) mmol/L Chloride 102 (96-108) mmol/L Carbon Dioxide 25 (22-30) mmol/L BUN 30 H (8-23) mg/dL Creatinine 1.3 H (0.7-1.2) mg/dL Glucose 125 H (70-105) mg/dL Calcium 9.0 (8.6-10.4) mg/dL Adrenal panel 05/08/22 Range/Units 06:22 Sodium 139 (133-145) mmol/L Potassium 3.9 (3.3-5.1) mmol/L Chloride 102 (96-108) mmol/L Carbon Dioxide 25 (22-30) mmol/L BUN 30 H (8-23) mg/dL Creatinine 1.3 H (0.7-1.2) mg/dL Glucose 125 H (70-105) mg/dL Calcium 9.0 (8.6-10.4) mg/dL Total Bilirubin 1.2 H (0.1-1.0) mg/dL AST 13 (<40) U/L ALT 8 (<40) U/L Alkaline Phosphatase 49 (39-117) U/L Total Protein 6.5 (5.9-8.4) gm/dL Albumin 3.2 (3.2-5.2) gm/dL All other labs normal. A/P Narrative A/P Narrative: Assessment: Recurrent social issues. CELLULITIS both legs. Lymphedema RIGHT leg > Left leg. Plan of Treatment: Plan: Conservative management Will follow patient along with hospitalist. Time Spent With Patient Time: Total time spent is greater than 50% in coordination of care (as documented) at patient's floor/unit and/or counseling patient:
[2022-05-08] MEDS: METOPROLOL SUCCINATE 50 MG TAB.XL.24H PO SCH (21:01)
[2022-05-08] MEDS: APIXABAN 5 MG TABLET PO SCH (21:01)
[2022-05-08] MEDS: SERTRALINE 50 MG TABLET PO SCH (21:01)
[2022-05-09] MEDS: 0.9 % SODIUM CHLORIDE 10 ML SYRINGE IV SCH ×3 (05:43→20:52)
[2022-05-09] MEDS: HYDROcodone/APAP 5/325MG TABLET PO PRN ×2 (06:39→10:32)
[2022-05-09 07:05] LABS: Blood Urea Nitrogen 32 mg/dL (8-23); Calcium 8.7 mg/dL (8.6-10.4); Carbon Dioxide 23 mmol/L (22-30); Chloride 104 mmol/L (96-108); Glomerular Filtration Rate 60; Glucose 196 mg/dL (70-105)
--- NOTE | 2022-05-09 07:47 | Internal Med Progress Note ---
SUBJECTIVE Subjective Patient information: Note initiated : 05/09/22 at 7:44 am Service Date, if different from initiated Date: [] Patient: Ovidio Veloz a 71 y/o M admitted on 05/07/22 for RLE Swelling/ Redness/Weeping. Chief Complaint: [] Interval history: History of present illness: Mr. Veloz is a 71 year old M With history of recurrent right foot infection and history of diabetes and obesity. Has history of chronic wounds. He was last admitted in November for several days for the same thing. Patient states his right foot gets bad then he gets better than he gets bad again. Patient dates about 3 days ago right foot and ankle started swelling becoming increasingly red and tender. He has had some drainage generalized over it which is clear yellow. Patient says he feels little lightheaded when he gets up moves around. Denies any fevers or chills. Will obtain MRI to rule out osteo of the foot. Contact wound care team. 2/3 MRI and no osteo or abscess noted. Pending further treatment recommendations by wound care team Dr. Marte. Patient says foot similar yesterday as far as swelling tenderness. No other acute events or new complaints. 2/[address] Kang. Patient feels his leg is improving slowly. CRP elevated. Monitor. Review of Systems: denies headache/fever/chills/nausea/vomiting/chest or abdominal pain/cough/dy spnea/diarrhea. Otherwise see above. Constitutional Vitals: Vital Signs Temp Pulse Resp BP Pulse Ox O2 Del Method O2 Flow Rate 97.7 F 62 16 115/89 99 Room Air 100 05/09/22 02:50 05/09/22 02:50 05/09/22 02:50 05/09/22 02:50 05/09/22 02:50 05/09/22 02:50 05/07/22 19:30 Period Temp Pulse Resp BP Sys/Spence Pulse Ox O2 Del Method O2 Flow Rate Last 24 Hr 97.4 F-98.7 F 61-96 16-22 102-127/55-89 96-100 Room Air-Room Air Intake and Output 05/08/22 05/09/22 05/09/22 19:59 03:59 11:59 Intake Total 980 925 Output Total 550 450 125 Balance 430 475 -125 Weight 131.587 kg Intake & Output: Intake & Output 05/08/22 05/09/22 05/09/22 19:59 03:59 11:59 Intake Total 980 925 Output Total 550 450 125 Balance 430 475 -125 Weight 131.587 kg Intake: Oral 980 925 Output: Void Amount 550 450 125 Other: Meal Dinner Percent of Meal Consumed 100% Feeding Ability Independent Urine Appearance Clear Clear Urine Color Dark Yellow Dark Yellow Dark Yellow # Voids 1 Exam: General: Alert, Awake, No acute Distress, obese: Eyes/N/T: EOMI, Head/Neck: neck supple, CV: RRR, No murmurs, Pulm: Clear b/l, no wheezing/rhonchi/rales Abd: soft, nontender, +BS x4 Ext: no clubbing/cyanosis, b/l LE Edema 2+. RLE Erythema/edema/TTP Neuro: Alert, no focal deficits, moves all extremities, Skin: warm/dry OBJ DATA Labs 05/08/22 06:23 05/09/22 05:46 Labs: Abnormal Lab Results 05/09/22 05/08/22 05/08/22 05:46 06:23 06:22 Hgb 12.1 L MCH 24.4 L MCHC 30.1 L RDW 22.4 H Neut % (Auto) 78.8 H Lymph % (Auto) 7.8 L Lymph # (Auto) 0.69 L [place] # (Auto) 0.97 H Absolute Neutrophils ESR POC VBG pO2 POC Venous O2 Sat POC BUN BUN 32 H 30 H Creatinine 1.3 H POC Creatinine Glucose 196 H 125 H POC Glucose Hemoglobin A1c Total Bilirubin 1.2 H Direct Bilirubin 0.7 H Lactate Dehydrogenase 228 H C-Reactive Protein 9.90 H 05/07/22 05/07/22 05/07/22 12:00 11:57 11:50 Hgb MCH MCHC RDW Neut % (Auto) Lymph % (Auto) Lymph # (Auto) [place] # (Auto) Absolute Neutrophils ESR POC VBG pO2 19 L POC Venous O2 Sat 24.0 L POC BUN 32 H BUN 30 H Creatinine 1.3 H POC Creatinine 1.4 H Glucose 162 H POC Glucose 163 H Hemoglobin A1c 7.3 H Total Bilirubin Direct Bilirubin Lactate Dehydrogenase C-Reactive Protein 05/07/22 05/07/22 05/07/22 11:50 11:32 11:32 Hgb 12.6 L MCH 24.3 L MCHC 29.9 L RDW 22.4 H Neut % (Auto) 81.9 H Lymph % (Auto) 6.4 L Lymph # (Auto) 0.65 L [place] # (Auto) 1.00 H Absolute Neutrophils 8.38 H ESR 44 H POC VBG pO2 POC Venous O2 Sat POC BUN BUN Creatinine POC Creatinine Glucose POC Glucose Hemoglobin A1c Total Bilirubin Direct Bilirubin Lactate Dehydrogenase C-Reactive Protein 7.70 H Meds: Medications Acetaminophen (Acetaminophen 325 Mg Tablet) 650 mg PO Q6HP PRN; Protocol PRN Reason: Per Pain Protocol/Fever > 101 Hydrocodone Bitart/Acetaminophen (Hydrocodone/Apap 5/325mg Tablet) 1 tab PO Q4HP PRN PRN Reason: PAIN LEVEL 3-6 Last Admin: 05/09/22 06:39 Dose: 1 tab Albuterol/Ipratropium (Ipratropium/Albuterol 3 Ml Ampul.Neb) 3 ml NEB Q4HP PRN PRN Reason: Shortness Of Breath Amiodarone HCl (Amiodarone Hcl 200 Mg Tablet) 200 mg PO QDAY [facility] Apixaban (Apixaban 5 Mg Tablet) 5 mg PO BID [facility] Last Admin: 05/08/22 21:01 Dose: 5 mg Cefepime HCl (Cefepime 2 Gm Vial) 2 gm IV Q12H [facility]; Protocol Last Admin: 05/08/22 21:01 Dose: 2 gm Dextrose (Dextrose 50% 50 Ml Vial) 0 ml IV UD PRN PRN Reason: Per Sliding Scale Diagnostic Test (Pha) (Accu-Chek 1 Each Strip) 1 each FS ACHS [facility] Last Admin: 05/08/22 20:50 Dose: 1 each Docusate Sodium (Docusate Sodium 100 Mg Capsule) 100 mg PO BID [facility] Last Admin: 05/08/22 21:01 Dose: 100 mg Fenofibrate (Fenofibrate 43 Mg Capsule) 129 mg PO DAILY [facility] Furosemide (Furosemide 40 Mg Tablet) 40 mg PO DAILY [facility] Furosemide (Furosemide 20 Mg Tablet) 20 mg PO DAILY@1400 [facility] Last Admin: 05/08/22 13:01 Dose: 20 mg Glucose (Dextrose 31 Gm Oral.Susp) 15 gm PO PRN PRN PRN Reason: Hypoglycemia Potassium Chloride 40 meq/ (Dextrose) 520 mls @ 130 mls/hr IV UD PRN PRN Reason: Potassium < 3 Magnesium Sulfate (Magnesium Sulfate) 2 gm in 50 mls @ 50 mls/hr IV UD PRN PRN Reason: Magnesium </= 1.6 Insulin Glargine (Insulin Glargine, Human 1 Unit/0.01 Ml) 35 unit SQ QAM [facility] Insulin Human Lispro (Insulin Lispro 1 Unit/0.01 Ml Unit) 0 unit SQ ACHS [facility]; Protocol Last Admin: 05/08/22 21:02 Dose: 4 units Lisinopril (Lisinopril 20 Mg Tablet) 20 mg PO QDAY [facility] Metoprolol Succinate (Metoprolol Succinate 50 Mg Tab.Xl.24h) 100 mg PO BID [facility] Last Admin: 05/08/22 21:01 Dose: 100 mg Metoprolol Tartrate (Metoprolol Tartrate 5 Mg/5 Ml Vial) 5 mg IV Q2HP PRN PRN Reason: Tachyarrhythmias HR>110 Ondansetron HCl (Ondansetron 4 Mg/2 Ml Vial) 4 mg IV Q4HP PRN PRN Reason: Nausea And Vomiting Polyethylene Glycol (Polyethylene Glycol 3350 17 Gm Packet) 17 gm PO DAILYP PRN PRN Reason: Constipation Potassium Chloride (Potassium Chloride 20 Meq Tablet) 40 meq PO UD PRN PRN Reason: Potssium is 3-3.5 Potassium Chloride (Potassium Chloride 20 Meq Tablet) 40 meq PO UD PRN PRN Reason: Potassium < 3 Senna (Sennosides 1 Tablet) 2 tab PO DAILYP PRN PRN Reason: Constipation Sertraline HCl (Sertraline 50 Mg Tablet) 50 mg PO QHS [facility] Last Admin: 05/08/22 21:01 Dose: 50 mg Sodium Chloride (0.9 % Sodium Chloride 10 Ml Syringe) 10 ml IV Q8 [facility] Last Admin: 05/09/22 05:43 Dose: 10 ml Spironolactone (Spironolactone 25 Mg Tablet) 25 mg PO QDAY [facility] Tramadol HCl (Tramadol 50 Mg Tablet) 50 mg PO Q6HP PRN PRN Reason: Pain A/P Narrative A/P Narrative: A: *RLE/foot REcurrent cellulitis: -MRI no osteo -WC growing Strep agalactiae & Klebsiella *chronic LE wounds / venous stasis changes: *DM: A1c 8.0 *Obesity: bmi 37 *CKD III: *Anemia, chronic: *PAF: on amio/eliquis/bb *h/o systolic(40-45)/diastolic(II) CHF: from 2019 echo -on acei/lasix/aldactone *HTN: on acei/bb P: -IV Cefepime, pending final WC/BC, mrsa screen neg -Dr. Marte / wound care -f/u ESR/CRP -cont amio/bb/acie -Continue Lasix/Aldactone -basal and ssi -PT/OT -ppx: Eliquis Code: cpr ok, No Intubation Plan of Treatment: Plan: Conservative management Will follow patient along with hospitalist. Time Spent With Patient Time: Total time spent is greater than 50% in coordination of care (as documented) at patient's floor/unit and/or counseling patient: Subsequent: Total time with patient: 50 - 65 Minutes QUALITY Stroke Symptom Onset Unknown: No VTE Deep Vein Thrombosis/Pulmonary Embolism Present on Admission: No
[2022-05-09] MEDS: FUROSEMIDE 40 MG TABLET PO SCH (08:26)
[2022-05-09] MEDS: DOCUSATE SODIUM 100 MG CAPSULE PO SCH ×2 (08:26→20:41)
[2022-05-09] MEDS: AMIODARONE HCL 200 MG TABLET PO SCH (08:26)
[2022-05-09] MEDS: FENOFIBRATE 43 MG CAPSULE PO SCH (08:26)
[2022-05-09] MEDS: APIXABAN 5 MG TABLET PO SCH ×2 (08:26→20:41)
[2022-05-09] MEDS: SPIRONOLACTONE 25 MG TABLET PO SCH (08:27)
[2022-05-09] MEDS: INSULIN GLARGINE, HUMAN 1 UNIT/0.01 ML SQ SCH (08:27)
[2022-05-09] MEDS: LISINOPRIL 20 MG TABLET PO SCH (08:27)
[2022-05-09] MEDS: INSULIN LISPRO 1 UNIT/0.01 ML UNIT SQ SCH ×4 (08:27→20:40)
[2022-05-09] MEDS: METOPROLOL SUCCINATE 50 MG TAB.XL.24H PO SCH ×2 (10:32→20:41)
[2022-05-09] MEDS: CEFEPIME 2 GM VIAL IV SCH ×2 (10:32→20:52)
--- NOTE | 2022-05-09 11:12 | General Surgery Progress Note ---
SUBJECTIVE Subjective Patient information: Note initiated : 05/09/22 at 11:08 am Service Date, if different from initiated Date: [] Patient: Ovidio Veloz 71 y/o M admitted on 05/07/22 for RLE Swelling/Redness/Weeping. Chief Complaint: [] Additional PMFSH (Level 3 Only): Patient seen. Resting comfortably. Progress reviewed with Fartun CROW Constitutional Vitals: Vital Signs Temp Pulse Resp BP Pulse Ox O2 Del Method O2 Flow Rate 97.5 F 60 22 126/63 98 Room Air 100 05/09/22 08:00 05/09/22 08:00 05/09/22 08:00 05/09/22 08:00 05/09/22 08:00 05/09/22 08:00 05/07/22 19:30 Period Temp Pulse Resp BP Sys/Spence Pulse Ox O2 Del Method O2 Flow Rate Last 24 Hr 97.4 F-98.7 F 60-96 16-22 102-126/55-89 96-100 Room Air-Room Air Intake and Output 05/08/22 05/09/22 05/09/22 19:59 03:59 11:59 Intake Total 980 925 240 Output Total 550 450 125 Balance 430 475 115 Weight 290 lb 1.6 oz Intake & Output: Intake & Output 05/08/22 05/09/22 05/09/22 19:59 03:59 11:59 Intake Total 980 925 240 Output Total 550 450 125 Balance 430 475 115 Weight 290 lb 1.6 oz Intake: Oral 980 925 240 Output: Void Amount 550 450 125 Other: Meal Dinner Breakfast Percent of Meal Consumed 100% 100% Feeding Ability Independent Independent Urine Appearance Clear Clear Urine Color Dark Yellow Dark Yellow Dark Yellow # Voids 1 Exam: AVSS. No changes KRISSY. Wound c/s. Klebsiella and Strep. Sensitivities pending. Local wound care and MIST ongoing IV antibiotics to continue A/P Narrative A/P Narrative: Assessment: Satisfactory progress. Await ID input. Plan of Treatment: Plan: Continue present Conservative management Will follow patient along with hospitalist. Time Spent With Patient Time: Total time spent is greater than 50% in coordination of care (as documented) at patient's floor/unit and/or counseling patient:
[2022-05-09] MEDS: FUROSEMIDE 20 MG TABLET PO SCH (15:10)
[2022-05-09] MEDS: SERTRALINE 50 MG TABLET PO SCH (20:41)
[2022-05-10] MEDS: 0.9 % SODIUM CHLORIDE 10 ML SYRINGE IV SCH ×3 (05:12→20:38)
--- NOTE | 2022-05-10 07:39 | Internal Med Progress Note ---
SUBJECTIVE Subjective Patient information: Note initiated : 05/10/22 at 7:35 am Service Date, if different from initiated Date: [] Patient: Ovidio Veloz a 71 y/o M admitted on 05/09/22 for RLE Swelling/ Redness/Weeping. Chief Complaint: [] Interval history: History of present illness: Mr. Veloz is a 71 year old M With history of recurrent right foot infection and history of diabetes and obesity. Has history of chronic wounds. He was last admitted in November for several days for the same thing. Patient states his right foot gets bad then he gets better than he gets bad again. Patient dates about 3 days ago right foot and ankle started swelling becoming increasingly red and tender. He has had some drainage generalized over it which is clear yellow. Patient says he feels little lightheaded when he gets up moves around. Denies any fevers or chills. Will obtain MRI to rule out osteo of the foot. Contact wound care team. 2/ MRI and no osteo or abscess noted. Pending further treatment recommendations by wound care team Dr. Marte. Patient says foot similar yesterday as far as swelling tenderness. No other acute events or new complaints. 2/ Wound care per Dr. Kang. Patient feels his leg is improving slowly. CRP elevated. Monitor. 2/ No overnight event or new complaints. Follow-up inflammatory markers in the a.m. Continue recs per wound care. Wound cultures with Klebsiella and strep agalactiae. Review of Systems: denies headache/fever/chills/nausea/vomiting/chest or abdominal pain/cough/dyspnea/diarrhea. Otherwise see above. Constitutional Vitals: Vital Signs Temp Pulse Resp BP Pulse Ox O2 Del Method O2 Flow Rate 98.8 F 60 16 132/69 99 Room Air 100 05/10/22 07:27 05/10/22 07:27 05/10/22 07:27 05/10/22 07:27 05/10/22 07:27 05/10/22 07:27 05/07/22 19:30 Period Temp Pulse Resp BP Sys/Spence Pulse Ox O2 Del Method O2 Flow Rate Last 24 Hr 97.2 F-99.3 F 60-73 14-22 115-138/57-73 96-100 Room Air-Room Air Intake and Output 0205/10/22 05/10/22 19:59 03:59 11:59 Intake Total 500 800 Output Total 1250 226 Balance -750 574 Weight 125.963 kg Intake & Output: Intake & Output 05/09/22 05/10/22 05/10/22 19:59 03:59 11:59 Intake Total 500 800 Output Total 1250 226 Balance -750 574 Weight 125.963 kg Intake: Oral 500 800 Output: Void Amount 1250 225 # of times incontinent of urine 1 Other: Meal Lunch Andra Percent of Meal Consumed 100% 100% Feeding Ability Independent Independent Urine Appearance Clear Clear Urine Color Dark Yellow Dark Yellow Urine Odor Normal Exam: General: Alert, Awake, No acute Distress, obese: Eyes/N/T: EOMI, Head/Neck: neck supple, CV: RRR, No murmurs, Pulm: Clear b/l, no wheezing/rhonchi/rales Abd: soft, nontender, +BS x4 Ext: no clubbing/cyanosis, b/l LE Edema . RLE dressings intact w/drainage Neuro: Alert, no focal deficits, moves all extremities, Skin: warm/dry OBJ DATA Labs 05/08/22 06:23 05/09/22 05:46 Labs: Abnormal Lab Results 05/09/22 05/08/22 05/08/22 05:46 06:23 06:22 Hgb 12.1 L MCH 24.4 L MCHC 30.1 L RDW 22.4 H Neut % (Auto) 78.8 H Lymph % (Auto) 7.8 L Lymph # (Auto) 0.69 L [place] # (Auto) 0.97 H Absolute Neutrophils ESR POC VBG pO2 POC Venous O2 Sat POC BUN BUN 32 H 30 H Creatinine 1.3 H POC Creatinine Glucose 196 H 125 H POC Glucose Hemoglobin A1c Total Bilirubin 1.2 H Direct Bilirubin 0.7 H Lactate Dehydrogenase 228 H C-Reactive Protein 9.90 H 05/07/22 05/07/22 05/07/22 12:00 11:57 11:50 Hgb MCH MCHC RDW Neut % (Auto) Lymph % (Auto) Lymph # (Auto) [place] # (Auto) Absolute Neutrophils ESR POC VBG pO2 19 L POC Venous O2 Sat 24.0 L POC BUN 32 H BUN 30 H Creatinine 1.3 H POC Creatinine 1.4 H Glucose 162 H POC Glucose 163 H Hemoglobin A1c 7.3 H Total Bilirubin Direct Bilirubin Lactate Dehydrogenase C-Reactive Protein 05/07/22 05/07/22 05/07/22 11:50 11:32 11:32 Hgb 12.6 L MCH 24.3 L MCHC 29.9 L RDW 22.4 H Neut % (Auto) 81.9 H Lymph % (Auto) 6.4 L Lymph # (Auto) 0.65 L [place] # (Auto) 1.00 H Absolute Neutrophils 8.38 H ESR 44 H POC VBG pO2 POC Venous O2 Sat POC BUN BUN Creatinine POC Creatinine Glucose POC Glucose Hemoglobin A1c Total Bilirubin Direct Bilirubin Lactate Dehydrogenase C-Reactive Protein 7.70 H Meds: Medications Acetaminophen (Acetaminophen 325 Mg Tablet) 650 mg PO Q6HP PRN; Protocol PRN Reason: Per Pain Protocol/Fever > 101 Hydrocodone Bitart/Acetaminophen (Hydrocodone/Apap 5/325mg Tablet) 1 tab PO Q4HP PRN PRN Reason: PAIN LEVEL 3-6 Last Admin: 05/09/22 10:32 Dose: 1 tab Albuterol/Ipratropium (Ipratropium/Albuterol 3 Ml Ampul.Neb) 3 ml NEB Q4HP PRN PRN Reason: Shortness Of Breath Amiodarone HCl (Amiodarone Hcl 200 Mg Tablet) 200 mg PO QDAY [facility] Last Admin: 05/09/22 08:26 Dose: 200 mg Apixaban (Apixaban 5 Mg Tablet) 5 mg PO BID [facility] Last Admin: 05/09/22 20:41 Dose: 5 mg Cefepime HCl (Cefepime 2 Gm Vial) 2 gm IV Q12H [facility]; Protocol Last Admin: 05/09/22 20:52 Dose: 2 gm Dextrose (Dextrose 50% 50 Ml Vial) 0 ml IV UD PRN PRN Reason: Per Sliding Scale Diagnostic Test (Pha) (Accu-Chek 1 Each Strip) 1 each FS ACHS [facility] Last Admin: 05/10/22 07:30 Dose: 1 each Docusate Sodium (Docusate Sodium 100 Mg Capsule) 100 mg PO BID [facility] Last Admin: 05/09/22 20:41 Dose: 100 mg Fenofibrate (Fenofibrate 43 Mg Capsule) 129 mg PO DAILY [facility] Last Admin: 05/09/22 08:26 Dose: 129 mg Furosemide (Furosemide 40 Mg Tablet) 40 mg PO DAILY [facility] Last Admin: 05/09/22 08:26 Dose: 40 mg Furosemide (Furosemide 20 Mg Tablet) 20 mg PO DAILY@1400 [facility] Last Admin: 05/09/22 15:10 Dose: 20 mg Glucose (Dextrose 31 Gm Oral.Susp) 15 gm PO PRN PRN PRN Reason: Hypoglycemia Potassium Chloride 40 meq/ (Dextrose) 520 mls @ 130 mls/hr IV UD PRN PRN Reason: Potassium < 3 Magnesium Sulfate (Magnesium Sulfate) 2 gm in 50 mls @ 50 mls/hr IV UD PRN PRN Reason: Magnesium </= 1.6 Insulin Glargine (Insulin Glargine, Human 1 Unit/0.01 Ml) 35 unit SQ QAM [facility] Last Admin: 05/09/22 08:27 Dose: 35 unit Insulin Human Lispro (Insulin Lispro 1 Unit/0.01 Ml Unit) 0 unit SQ ACHS [facility]; Protocol Last Admin: 05/09/22 20:40 Dose: 8 units Lisinopril (Lisinopril 20 Mg Tablet) 20 mg PO QDAY [facility] Last Admin: 05/09/22 08:27 Dose: 20 mg Metoprolol Succinate (Metoprolol Succinate 50 Mg Tab.Xl.24h) 100 mg PO BID [facility] Last Admin: 05/09/22 20:41 Dose: 100 mg Metoprolol Tartrate (Metoprolol Tartrate 5 Mg/5 Ml Vial) 5 mg IV Q2HP PRN PRN Reason: Tachyarrhythmias HR>110 Ondansetron HCl (Ondansetron 4 Mg/2 Ml Vial) 4 mg IV Q4HP PRN PRN Reason: Nausea And Vomiting Polyethylene Glycol (Polyethylene Glycol 3350 17 Gm Packet) 17 gm PO DAILYP PRN PRN Reason: Constipation Potassium Chloride (Potassium Chloride 20 Meq Tablet) 40 meq PO UD PRN PRN Reason: Potssium is 3-3.5 Potassium Chloride (Potassium Chloride 20 Meq Tablet) 40 meq PO UD PRN PRN Reason: Potassium < 3 Senna (Sennosides 1 Tablet) 2 tab PO DAILYP PRN PRN Reason: Constipation Sertraline HCl (Sertraline 50 Mg Tablet) 50 mg PO QHS [facility] Last Admin: 05/09/22 20:41 Dose: 50 mg Sodium Chloride (0.9 % Sodium Chloride 10 Ml Syringe) 10 ml IV Q8 [facility] Last Admin: 05/10/22 05:12 Dose: 10 ml Spironolactone (Spironolactone 25 Mg Tablet) 25 mg PO QDAY [facility] Last Admin: 05/09/22 08:27 Dose: 25 mg Tramadol HCl (Tramadol 50 Mg Tablet) 50 mg PO Q6HP PRN PRN Reason: Pain A/P Narrative A/P Narrative: A: *RLE/foot REcurrent cellulitis: -MRI no osteo -WC growing Strep agalactiae & Klebsiella *chronic LE wounds / venous stasis changes: *DM: A1c 8.0 *Obesity: bmi 37 *CKD III: *Anemia, chronic: *PAF: on amio/eliquis/bb *h/o systolic(40-45)/diastolic(II) CHF: from 2019 echo -on acei/lasix/aldactone *HTN: on acei/bb P: -IV cefepime to Ceftriaxone, mrsa screen neg -Dr. Marte / wound care -f/u ESR/CRP in am -cont amio/bb/acie -Continue Lasix/Aldactone -basal and ssi -PT/OT -ppx: Eliquis Code: cpr ok, No Intubation Plan of Treatment: Plan: Continue present Conservative management Will follow patient along with hospitalist. Time Spent With Patient Time: Total time spent is greater than 50% in coordination of care (as documented) at patient's floor/unit and/or counseling patient: Subsequent: Total time with patient: 35 - 49 minutes QUALITY Stroke Symptom Onset Unknown: No VTE Deep Vein Thrombosis/Pulmonary Embolism Present on Admission: No
[2022-05-10] MEDS: INSULIN LISPRO 1 UNIT/0.01 ML UNIT SQ SCH ×4 (08:19→20:37)
[2022-05-10] MEDS: cefTRIAXone 2 GM VIAL ONE ×2 (08:20→08:24)
[2022-05-10] MEDS: INSULIN GLARGINE, HUMAN 1 UNIT/0.01 ML SQ SCH (08:20)
[2022-05-10] MEDS: FENOFIBRATE 43 MG CAPSULE PO SCH (08:20)
[2022-05-10] MEDS: DOCUSATE SODIUM 100 MG CAPSULE PO SCH ×2 (08:21→20:37)
[2022-05-10] MEDS: FUROSEMIDE 40 MG TABLET PO SCH (08:21)
[2022-05-10] MEDS: AMIODARONE HCL 200 MG TABLET PO SCH (08:22)
[2022-05-10] MEDS: SPIRONOLACTONE 25 MG TABLET PO SCH (08:22)
[2022-05-10] MEDS: METOPROLOL SUCCINATE 50 MG TAB.XL.24H PO SCH ×2 (08:22→20:37)
[2022-05-10] MEDS: LISINOPRIL 20 MG TABLET PO SCH (08:22)
[2022-05-10] MEDS: APIXABAN 5 MG TABLET PO SCH ×2 (08:22→20:37)
[2022-05-10] MEDS: cefTRIAXone 2 GM in DEXTROSE 5% IN WATER 50 ML IV SCH (08:24)
--- NOTE | 2022-05-10 11:00 | Discharge Summary ---
Discharge Provider Provider IMPORTANT FOLLOW-UP INFORMATION FOR PCP: Patient information: Note initiated : 05/10/22 at 10:58 am Service Date, if different from initiated Date: [] Patient: Ovidio Veloz 71 y/o M admitted on 05/09/22 for RLE Swelling/Redness/Weeping. Chief Complaint: [] Date of admission: 05/09/22 14:00 Primary care physician: Serafin Sy MD Consults: 05/07/22 Consult to Physician [CONS] Stat Comment: Consulting Provider: Zeeshan Richards Reason For Exam: Physician to Consult 05/07/22 14:09 Consult to Physician [CONS] Routine Comment: Consulting Provider: Rebel Marte Reason For Exam: Physician to Consult COURSE Hospital Course Hospital course: History of present illness: Mr. Veloz is a 71 year old M With history of recurrent right foot infection and history of diabetes and obesity. Has history of chronic wounds. He was last admitted in November for several days for the same thing. Patient states his right foot gets bad then he gets better than he gets bad again. Patient dates about 3 days ago right foot and ankle started swelling becoming increasingly red and tender. He has had some drainage generalized over it which is clear yellow. Patient says he feels little lightheaded when he gets up moves around. Denies any fevers or chills. Will obtain MRI to rule out osteo of the foot. Contact wound care team. 2/ MRI and no osteo or abscess noted. Pending further treatment recommendations by wound care team Dr. Marte. Patient says foot similar yesterday as far as swelling tenderness. No other acute events or new complaints. 2/ Wound care per Dr. Kang. Patient feels his leg is improving slowly. CRP elevated. Monitor. 2/ No overnight event or new complaints. Follow-up inflammatory markers in the a.m. Continue recs per wound care. Wound cultures with Klebsiella and strep agalactiae. 2/ No overnight event or new complaints. Inflammatory markers improving. Final recs for Dr. aKng and PT/OT recs for placement to home with home health versus alf facility. A: *RLE/foot REcurrent cellulitis: -WC growingStrep agalactiae & Klebsiella *chronic LE wounds / venous stasis changes: *DM: A1c 8.0 *Obesity: bmi 37 *CKD III: *Anemia, chronic: *PAF: on amio/eliquis/bb *h/o systolic(40-45)/diastolic(II) CHF: from 2019 echo *HTN: on acei/bb P: -Abx -Dr. Marte / wound care Discharge diagnosis: Right foot ankle cellulitis chronic wounds Secondary discharge diagnosis: Diabetes obesity chronic kidney disease anemia heart failure hypertension Time Spent with Patient Time attestation: Total time spent providing and/or coordinating discharge services: Time spent: Greater than 30 minutes EXAM Constitutional Vitals: Temp Pulse Resp BP Pulse Ox O2 Del Method O2 Flow Rate 98.8 F 60 16 132/69 99 Room Air 100 05/10/22 07:27 05/10/22 07:27 05/10/22 07:27 05/10/22 07:27 05/10/22 07:27 05/10/22 07:27 05/07/22 19:30 Discharge Data Data Completed and Pending Labs on day of discharge: Preliminary micro results at discharge 05/07/22 11:45 Blood Culture - Preliminary Blood 05/07/22 11:35 Blood Culture - Preliminary Blood Discharge Plan Patient/Caregiver Discharge Instructions Activity: increase activity as tolerated Diet: Consistent Carbohydrate Prescriptions: Continued (DME) pen needle, diabetic 32 gauge x 5/32" needle See Rx Instructions .ROUTE .MEDSUPPLY Qty: 100 3RF Rx Instructions: Use with levemir once daily Levemir FlexTouch U-100 Insuln 100 unit/mL (3 mL) insulin pen 35 unit SUB-Q QAM Qty: 30 1RF fenofibrate 160 mg tablet 160 mg tablet 160 mg PO QDAY Qty: 90 1RF lisinopril 20 mg tablet 20 mg PO QDAY Qty: 90 1RF amiodarone 200 mg tablet 200 mg PO QDAY Qty: 90 1RF furosemide [Lasix] 40 mg tablet 40 mg PO .COMPLEX Qty: 135 3RF Rx Instructions: 40 mg (1 tablet) PO each morning and 20mg (1/2 tablet) each afternoon at 2:00 p.m. metoprolol succinate [Toprol XL] 100 mg tablet extended release 24 hr 100 mg PO BID Qty: 180 1RF (DME) Accu-Chek SmartView Test Strip Strip See Dose Instructions .ROUTE .MEDSUPPLY Qty: 100 3RF Dose Instruction: As directed Rx Instructions: Use to test BG once daily spironolactone [Aldactone] 25 mg tablet 25 mg PO QDAY Qty: 90 1RF metformin 1,000 mg tablet 1,000 mg PO BID Qty: 180 1RF glipizide 10 mg tablet 10 mg PO TID Qty: 270 1RF sertraline 50 mg tablet 50 mg PO QHS Qty: 30 1RF Januvia 100 mg tablet 100 mg PO QDAY Qty: 90 1RF omega-3 fatty acids [Fish Oil Concentrate] 1,000 mg capsule 1,000 mg PO QDAY apixaban [Eliquis] 5 mg tablet 5 mg PO BID tramadol 50 mg tablet 50 mg PO Q6H PRN (Reason: pain) Qty: 60 0RF (DME) Accu-Chek SmartView Test Strip Strip MISCELLANEOUS QDAY Follow Up Plan Follow up with: Rebel Marte MD [Physician] - Serafin Sy MD [Primary Care Provider] - Patient Disposition: Home Health Service Plan of Treatment: Plan: Continue present Conservative management Will follow patient along with hospitalist. Prognosis: Undetermined Overall status at discharge: patient is progressing back to baseline QUALITY VTE Deep Vein Thrombosis/Pulmonary Embolism Present on Admission: No
[2022-05-10] MEDS: FUROSEMIDE 20 MG TABLET PO SCH (13:27)
[2022-05-10] MEDS: traMADol 50 MG TABLET PO PRN (13:27)
[2022-05-10] MEDS: SERTRALINE 50 MG TABLET PO SCH (20:37)
[2022-05-11] MEDS: 0.9 % SODIUM CHLORIDE 10 ML SYRINGE IV SCH ×3 (05:04→20:26)
[2022-05-11] MEDS: INSULIN LISPRO 1 UNIT/0.01 ML UNIT SQ SCH ×4 (07:36→20:38)
[2022-05-11] MEDS ORDERED: cefTRIAXone 2 GM VIAL ONE (08:52)
[2022-05-11] MEDS: SPIRONOLACTONE 25 MG TABLET PO SCH (08:55)
[2022-05-11] MEDS: METOPROLOL SUCCINATE 50 MG TAB.XL.24H PO SCH ×2 (08:55→20:26)
[2022-05-11] MEDS: LISINOPRIL 20 MG TABLET PO SCH (08:55)
[2022-05-11] MEDS: AMIODARONE HCL 200 MG TABLET PO SCH (08:55)
[2022-05-11] MEDS: FUROSEMIDE 40 MG TABLET PO SCH (08:55)
[2022-05-11] MEDS: APIXABAN 5 MG TABLET PO SCH ×2 (08:55→20:26)
[2022-05-11] MEDS: DOCUSATE SODIUM 100 MG CAPSULE PO SCH ×2 (08:55→20:26)
[2022-05-11] MEDS: FENOFIBRATE 43 MG CAPSULE PO SCH (08:56)
[2022-05-11] MEDS: cefTRIAXone 2 GM in DEXTROSE 5% IN WATER 50 ML IV SCH (08:56)
[2022-05-11] MEDS: INSULIN GLARGINE, HUMAN 1 UNIT/0.01 ML SQ SCH (09:05)
--- NOTE | 2022-05-11 14:27 | General Surgery Progress Note ---
SUBJECTIVE Subjective Patient information: Note initiated : 05/11/22 at 2:22 pm Service Date, if different from initiated Date: [] Patient: Ovidio Veloz 71 y/o M admitted on 05/09/22 for RLE Swelling/Redness/Weeping. Chief Complaint: [] Additional PMFSH (Level 3 Only): Patient seen with Irina Marroquin RN Inpatient wound care services. Constitutional Vitals: Vital Signs Temp Pulse Resp BP Pulse Ox O2 Del Method O2 Flow Rate 98.3 F 61 20 139/89 98 Room Air 100 05/11/22 12:00 05/11/22 12:00 05/11/22 12:00 05/11/22 12:00 05/11/22 12:00 05/11/22 12:00 05/07/22 19:30 Period Temp Pulse Resp BP Sys/Spence Pulse Ox O2 Del Method O2 Flow Rate Last 24 Hr 97.5 F-98.4 F 57-63 16-20 125-139/64-89 96-99 Room Air-Room Air Intake and Output 05/11/22 05/11/22 05/11/22 03:59 11:59 19:59 Intake Total 250 50 720 Output Total 725 475 300 Balance -475 -425 420 Weight 291 lb 4.8 oz 291 lb 4.8 oz Patient Weight 05/12/22 03:59 Weight 291 lb 4.8 oz Intake & Output: Intake & Output 05/11/22 05/11/22 05/11/22 03:59 11:59 19:59 Intake Total 250 50 720 Output Total 725 475 300 Balance -475 -425 420 Weight 291 lb 4.8 oz 291 lb 4.8 oz Intake: Nourishment/Supplement quantity 240 (ml) IV 50 Rocephin 2 gm In Dextrose 5% in 50 Water 50 ml @ 100 mls/hr IV DAILY [facility] Rx#:[id number] Oral 250 240 GI Tube Flush 240 Output: Void Amount 725 475 300 Other: Meal sherbert Lunch Percent of Meal Consumed 100% 100% Feeding Ability Independent Independent Urine Appearance Clear Clear Clear Urine Color Bright Yellow Dark Millicent Yellow Urine Odor Normal Stool Size Large Stool Color Brown Stool Consistency Dry and Hard # Voids 1 # Bowel Movements 1 Exam: AVSS. No changes KRISSY.At his baseline. Both legs cellulitis and CSSSI responding well. On MIST treatments with VASHE and IV Ceftriaxone. Wound c/s klebsiella oxytoca. A/P Narrative A/P Narrative: Assessment; Satisfactory progress. Cellulitis and CSSSI improved. Plan of Treatment: Plan: Plan for continuation of IV antibiotics AND local wound care noted. F/u at wound clinic after discharge Time Spent With Patient Time: Total time spent is greater than 50% in coordination of care (as documented) at patient's floor/unit and/or counseling patient: Initial: Total time with patient: Less than 40 minutes
[2022-05-11] MEDS: FUROSEMIDE 20 MG TABLET PO SCH (14:39)
--- NOTE | 2022-05-11 14:54 | Internal Med Progress Note ---
SUBJECTIVE Subjective Patient information: Note initiated : 05/11/22 at 2:53 pm Service Date, if different from initiated Date: [] Patient: Ovidio Veloz a 71 y/o M admitted on 05/09/22 for RLE Swelling/ Redness/Weeping. Chief Complaint: [] Interval history: History of present illness: Mr. Veloz is a 71 year old M With history of recurrent right foot infection and history of diabetes and obesity. Has history of chronic wounds. He was last admitted in November for several days for the same thing. Patient states his right foot gets bad then he gets better than he gets bad again. Patient dates about 3 days ago right foot and ankle started swelling becoming increasingly red and tender. He has had some drainage generalized over it which is clear yellow. Patient says he feels little lightheaded when he gets up moves around. Denies any fevers or chills. Will obtain MRI to rule out osteo of the foot. Contact wound care team. 2/ MRI and no osteo or abscess noted. Pending further treatment recommendations by wound care team Dr. Marte. Patient says foot similar yesterday as far as swelling tenderness. No other acute events or new complaints. / Wound care per Dr. Kang. Patient feels his leg is improving slowly. CRP elevated. Monitor. 05/10 No overnight event or new complaints. Follow-up inflammatory markers in the a.m. Continue recs per wound care. Wound cultures with Klebsiella and strep agalactiae. 05/11 Patient seems to be doing well from a flexion standpoint. Seen by wound care, wound doing well. Will need to eval by PT to determine where he can discharge to. Case management to work with him as well. Needs close follow-up given his recurrent infection. CRP improving. Review of Systems: denies headache/fever/chills/nausea/vomiting/chest or abdominal pain/cough/dyspnea/diarrhea. Otherwise see above. Constitutional Vitals: Vital Signs Temp Pulse Resp BP Pulse Ox O2 Del Method O2 Flow Rate 98.3 F 61 20 139/89 98 Room Air 100 05/11/22 12:00 05/11/22 12:00 05/11/22 12:00 05/11/22 12:00 05/11/22 12:05/11/22 12:05/07/22 19:30 Period Temp Pulse Resp BP Sys/Spence Pulse Ox O2 Del Method O2 Flow Rate Last 24 Hr 97.5 F-98.4 F 57-63 16-20 125-139/64-89 96-99 Room Air-Room Air Intake and Output 05/11/22 05/11/22 05/11/22 03:59 11:59 19:59 Intake Total 250 50 720 Output Total 725 475 300 Balance -475 -425 420 Weight 132.131 kg 132.131 kg Patient Weight 05/12/22 03:59 Weight 132.131 kg Intake & Output: Intake & Output 05/11/22 05/11/22 05/11/22 03:59 11:59 19:59 Intake Total 250 50 720 Output Total 725 475 300 Balance -475 -425 420 Weight 132.131 kg 132.131 kg Intake: Nourishment/Supplement quantity 240 (ml) IV 50 Rocephin 2 gm In Dextrose 5% in 50 Water 50 ml @ 100 mls/hr IV DAILY [facility] Rx#:[id number] Oral 250 240 GI Tube Flush 240 Output: Void Amount 725 475 300 Other: Meal sherbert Lunch Percent of Meal Consumed 100% 100% Feeding Ability Independent Independent Urine Appearance Clear Clear Clear Urine Color Bright Yellow Dark Millicent Yellow Urine Odor Normal Stool Size Large Stool Color Brown Stool Consistency Dry and Hard # Voids 1 # Bowel Movements 1 Exam: General: Alert, Awake, No acute Distress, obese: Eyes/N/T: EOMI, Head/Neck: neck supple, CV: RRR, No murmurs, Pulm: Clear b/l, no wheezing/rhonchi/rales Abd: soft, nontender, +BS x4 Ext: no clubbing/cyanosis, b/l LE Edema . RLE dressings intact w/drainage Neuro: Alert, no focal deficits, moves all extremities, Skin: warm/dry OBJ DATA Labs 05/08/22 06:23 05/09/22 05:46 Labs: Abnormal Lab Results 05/11/22 05/11/22 05/09/22 05:40 05:40 05:46 ESR 53 H BUN 32 H Glucose 196 H C-Reactive Protein 6.40 H 9.90 H Meds: Medications Acetaminophen (Acetaminophen 325 Mg Tablet) 650 mg PO Q6HP PRN; Protocol PRN Reason: Per Pain Protocol/Fever > 101 Hydrocodone Bitart/Acetaminophen (Hydrocodone/Apap 5/325mg Tablet) 1 tab PO Q4HP PRN PRN Reason: PAIN LEVEL 3-6 Last Admin: 05/09/22 10:32 Dose: 1 tab Albuterol/Ipratropium (Ipratropium/Albuterol 3 Ml Ampul.Neb) 3 ml NEB Q4HP PRN PRN Reason: Shortness Of Breath Amiodarone HCl (Amiodarone Hcl 200 Mg Tablet) 200 mg PO QDAY [facility] Last Admin: 05/11/22 08:55 Dose: 200 mg Apixaban (Apixaban 5 Mg Tablet) 5 mg PO BID [facility] Last Admin: 05/11/22 08:55 Dose: 5 mg Dextrose (Dextrose 50% 50 Ml Vial) 0 ml IV UD PRN PRN Reason: Per Sliding Scale Diagnostic Test (Pha) (Accu-Chek 1 Each Strip) 1 each FS ACHS [facility] Last Admin: 05/11/22 11:27 Dose: 1 each Docusate Sodium (Docusate Sodium 100 Mg Capsule) 100 mg PO BID [facility] Last Admin: 05/11/22 08:55 Dose: 100 mg Fenofibrate (Fenofibrate 43 Mg Capsule) 129 mg PO DAILY [facility] Last Admin: 05/11/22 08:56 Dose: 129 mg Furosemide (Furosemide 40 Mg Tablet) 40 mg PO DAILY [facility] Last Admin: 05/11/22 08:55 Dose: 40 mg Furosemide (Furosemide 20 Mg Tablet) 20 mg PO DAILY@1400 [facility] Last Admin: 05/11/22 14:39 Dose: 20 mg Glucose (Dextrose 31 Gm Oral.Susp) 15 gm PO PRN PRN PRN Reason: Hypoglycemia Potassium Chloride 40 meq/ (Dextrose) 520 mls @ 130 mls/hr IV UD PRN PRN Reason: Potassium < 3 Magnesium Sulfate (Magnesium Sulfate) 2 gm in 50 mls @ 50 mls/hr IV UD PRN PRN Reason: Magnesium </= 1.6 Ceftriaxone Sodium 2 gm/ (Dextrose) 50 mls @ 100 mls/hr IV DAILY [facility]; Protocol Last Infusion: 05/11/22 10:10 Dose: Infused Insulin Glargine (Insulin Glargine, Human 1 Unit/0.01 Ml) 35 unit SQ QAM [facility] Last Admin: 05/11/22 09:05 Dose: 35 unit Insulin Human Lispro (Insulin Lispro 1 Unit/0.01 Ml Unit) 0 unit SQ ACHS [facility]; Protocol Last Admin: 05/11/22 11:26 Dose: 8 units Lisinopril (Lisinopril 20 Mg Tablet) 20 mg PO QDAY [facility] Last Admin: 05/11/22 08:55 Dose: 20 mg Metoprolol Succinate (Metoprolol Succinate 50 Mg Tab.Xl.24h) 100 mg PO BID [facility] Last Admin: 05/11/22 08:55 Dose: 100 mg Metoprolol Tartrate (Metoprolol Tartrate 5 Mg/5 Ml Vial) 5 mg IV Q2HP PRN PRN Reason: Tachyarrhythmias HR>110 Ondansetron HCl (Ondansetron 4 Mg/2 Ml Vial) 4 mg IV Q4HP PRN PRN Reason: Nausea And Vomiting Polyethylene Glycol (Polyethylene Glycol 3350 17 Gm Packet) 17 gm PO DAILYP PRN PRN Reason: Constipation Potassium Chloride (Potassium Chloride 20 Meq Tablet) 40 meq PO UD PRN PRN Reason: Potssium is 3-3.5 Potassium Chloride (Potassium Chloride 20 Meq Tablet) 40 meq PO UD PRN PRN Reason: Potassium < 3 Senna (Sennosides 1 Tablet) 2 tab PO DAILYP PRN PRN Reason: Constipation Last Admin: 05/10/22 20:37 Dose: 2 tab Sertraline HCl (Sertraline 50 Mg Tablet) 50 mg PO QHS [facility] Last Admin: 05/10/22 20:37 Dose: 50 mg Sodium Chloride (0.9 % Sodium Chloride 10 Ml Syringe) 10 ml IV Q8 [facility] Last Admin: 05/11/22 14:40 Dose: 10 ml Spironolactone (Spironolactone 25 Mg Tablet) 25 mg PO QDAY [facility] Last Admin: 05/11/22 08:55 Dose: 25 mg Tramadol HCl (Tramadol 50 Mg Tablet) 50 mg PO Q6HP PRN PRN Reason: Pain Last Admin: 05/10/22 13:27 Dose: 50 mg A/P Narrative A/P Narrative: A: *RLE/foot REcurrent cellulitis: -MRI no osteo -WC growing Strep agalactiae & Klebsiella *chronic LE wounds / venous stasis changes: *DM: A1c 8.0 *Obesity: bmi 37 *CKD III: *Anemia, chronic: *PAF: on amio/eliquis/bb *h/o systolic(40-45)/diastolic(II) CHF: from 2019 echo -on acei/lasix/aldactone *HTN: on acei/bb P: -IV Ceftriaxone, mrsa screen neg -Dr. Marte / wound care -f/u ESR/CRP -cont amio/bb/acie -Continue Lasix/Aldactone -basal and ssi -PT/OT -ppx: Eliquis Code: cpr ok, No Intubation Plan of Treatment: Plan: Plan for continuation of IV antibiotics AND local wound care noted. F/u at wound clinic after discharge Time Spent With Patient Time: Total time spent is greater than 50% in coordination of care (as documented) at patient's floor/unit and/or counseling patient: Subsequent: Total time with patient: 35 - 49 minutes QUALITY Stroke Symptom Onset Unknown: No VTE Deep Vein Thrombosis/Pulmonary Embolism Present on Admission: No
[2022-05-11] MEDS: SERTRALINE 50 MG TABLET PO SCH (20:26)
[2022-05-12] MEDS: HYDROcodone/APAP 5/325MG TABLET PO PRN ×2 (02:49→19:21)
[2022-05-12] MEDS: 0.9 % SODIUM CHLORIDE 10 ML SYRINGE IV SCH ×3 (04:37→20:34)
[2022-05-12] MEDS: traMADol 50 MG TABLET PO PRN (05:19)
[2022-05-12] MEDS: INSULIN LISPRO 1 UNIT/0.01 ML UNIT SQ SCH ×4 (07:06→20:35)
--- NOTE | 2022-05-12 07:36 | Internal Med Progress Note ---
SUBJECTIVE Subjective Patient information: Note initiated : 05/12/22 at 7:35 am Service Date, if different from initiated Date: [] Patient: Ovidio Veloz a 71 y/o M admitted on 05/09/22 for RLE Swelling/ Redness/Weeping. Chief Complaint: [] Interval history: History of present illness: Mr. Veloz is a 71 year old M With history of recurrent right foot infection and history of diabetes and obesity. Has history of chronic wounds. He was last admitted in November for several days for the same thing. Patient states his right foot gets bad then he gets better than he gets bad again. Patient dates about 3 days ago right foot and ankle started swelling becoming increasingly red and tender. He has had some drainage generalized over it which is clear yellow. Patient says he feels little lightheaded when he gets up moves around. Denies any fevers or chills. Will obtain MRI to rule out osteo of the foot. Contact wound care team. 2/ MRI and no osteo or abscess noted. Pending further treatment recommendations by wound care team Dr. Marte. Patient says foot similar yesterday as far as swelling tenderness. No other acute events or new complaints. / Wound care per Dr. Kang. Patient feels his leg is improving slowly. CRP elevated. Monitor. 05/10 No overnight event or new complaints. Follow-up inflammatory markers in the a.m. Continue recs per wound care. Wound cultures with Klebsiella and strep agalactiae. 05/11 Patient seems to be doing well from a flexion standpoint. Seen by wound care, wound doing well. Will need to eval by PT to determine where he can discharge to. Case management to work with him as well. Needs close follow-up given his recurrent infection. CRP improving. 05/12 No overnight event or new complaints. Patient doing well. [facility] Review of Systems: denies headache/fever/chills/nausea/vomiting/chest or abdominal pain/cough/dyspnea/diarrhea. Otherwise see above. Constitutional Vitals: Vital Signs Temp Pulse Resp BP Pulse Ox O2 Del Method O2 Flow Rate 98.4 F 55 L 22 126/74 98 Room Air 100 05/12/22 07:22 05/12/22 07:22 05/12/22 07:22 05/12/22 07:22 05/12/22 07:22 05/12/22 07:22 05/07/22 19:30 Period Temp Pulse Resp BP Sys/Spence Pulse Ox O2 Del Method O2 Flow Rate Last 24 Hr 97.4 F-98.4 F 52-61 20-24 115-139/68-89 96-99 Room Air-Room Air Intake and Output 05/11/22 05/12/22 05/12/22 19:59 03:59 11:59 Intake Total 1440 250 175 Output Total 625 450 Balance 815 -200 175 Weight 132.676 kg Intake & Output: Intake & Output 05/11/22 05/12/22 05/12/22 19:59 03:59 11:59 Intake Total 1440 250 175 Output Total 625 450 Balance 815 -200 175 Weight 132.676 kg Intake: Nourishment/Supplement quantity 240 (ml) Oral 480 250 175 GI Tube Flush 720 Output: Void Amount 625 450 Other: Meal Lunch Percent of Meal Consumed 100% Feeding Ability Independent Urine Appearance Clear Clear Urine Color Dark Yellow Yellow Urine Odor Normal # Voids 1 Exam: General: Alert, Awake, No acute Distress, obese: Eyes/N/T: EOMI, Head/Neck: neck supple, CV: RRR, No murmurs, Pulm: Clear b/l, no wheezing/rhonchi/rales Abd: soft, nontender, +BS x4 Ext: no clubbing/cyanosis, b/l LE Edema . RLE dressings intact w/drainage Neuro: Alert, no focal deficits, moves all extremities, Skin: warm/dry OBJ DATA Labs 05/08/22 06:23 05/09/22 05:46 Labs: Abnormal Lab Results 05/11/22 05/11/22 05:40 05:40 ESR 53 H C-Reactive Protein 6.40 H Meds: Medications Acetaminophen (Acetaminophen 325 Mg Tablet) 650 mg PO Q6HP PRN; Protocol PRN Reason: Per Pain Protocol/Fever > 101 Hydrocodone Bitart/Acetaminophen (Hydrocodone/Apap 5/325mg Tablet) 1 tab PO Q4HP PRN PRN Reason: PAIN LEVEL 3-6 Last Admin: 05/12/22 02:49 Dose: 1 tab Albuterol/Ipratropium (Ipratropium/Albuterol 3 Ml Ampul.Neb) 3 ml NEB Q4HP PRN PRN Reason: Shortness Of Breath Amiodarone HCl (Amiodarone Hcl 200 Mg Tablet) 200 mg PO QDAY [facility] Last Admin: 05/11/22 08:55 Dose: 200 mg Apixaban (Apixaban 5 Mg Tablet) 5 mg PO BID [facility] Last Admin: 05/11/22 20:26 Dose: 5 mg Dextrose (Dextrose 50% 50 Ml Vial) 0 ml IV UD PRN PRN Reason: Per Sliding Scale Diagnostic Test (Pha) (Accu-Chek 1 Each Strip) 1 each FS ACHS [facility] Last Admin: 05/12/22 07:05 Dose: 1 each Docusate Sodium (Docusate Sodium 100 Mg Capsule) 100 mg PO BID [facility] Last Admin: 05/11/22 20:26 Dose: 100 mg Fenofibrate (Fenofibrate 43 Mg Capsule) 129 mg PO DAILY [facility] Last Admin: 05/11/22 08:56 Dose: 129 mg Furosemide (Furosemide 40 Mg Tablet) 40 mg PO DAILY [facility] Last Admin: 05/11/22 08:55 Dose: 40 mg Furosemide (Furosemide 20 Mg Tablet) 20 mg PO DAILY@1400 [facility] Last Admin: 05/11/22 14:39 Dose: 20 mg Glucose (Dextrose 31 Gm Oral.Susp) 15 gm PO PRN PRN PRN Reason: Hypoglycemia Potassium Chloride 40 meq/ (Dextrose) 520 mls @ 130 mls/hr IV UD PRN PRN Reason: Potassium < 3 Magnesium Sulfate (Magnesium Sulfate) 2 gm in 50 mls @ 50 mls/hr IV UD PRN PRN Reason: Magnesium </= 1.6 Ceftriaxone Sodium 2 gm/ (Dextrose) 50 mls @ 100 mls/hr IV DAILY [facility]; Protocol Last Infusion: 05/11/22 10:10 Dose: Infused Insulin Glargine (Insulin Glargine, Human 1 Unit/0.01 Ml) [facility] Admin: 05/11/22 09:05 Dose: 35 unit Insulin Human Lispro (Insulin Lispro 1 Unit/0.01 Ml Unit) 0 unit SQ [facility]; Protocol Last Admin: 05/12/22 07:06 Dose: Not Given Lisinopril (Lisinopril 20 Mg Tablet) 20 mg PO QDAY [facility] Last Admin: 05/11/22 08:55 Dose: 20 mg Metoprolol Succinate (Metoprolol Succinate 50 Mg Tab.Xl.24h) 100 mg PO BID [facility] Last Admin: 05/11/22 20:26 Dose: 100 mg Metoprolol Tartrate (Metoprolol Tartrate 5 Mg/5 Ml Vial) 5 mg IV Q2HP PRN PRN Reason: Tachyarrhythmias HR>110 Ondansetron HCl (Ondansetron 4 Mg/2 Ml Vial) 4 mg IV Q4HP PRN PRN Reason: Nausea And Vomiting Polyethylene Glycol (Polyethylene Glycol 3350 17 Gm Packet) 17 gm PO DAILYP PRN PRN Reason: Constipation Potassium Chloride (Potassium Chloride 20 Meq Tablet) 40 meq PO UD PRN PRN Reason: Potssium is 3-3.5 Potassium Chloride (Potassium Chloride 20 Meq Tablet) 40 meq PO UD PRN PRN Reason: Potassium < 3 Senna (Sennosides 1 Tablet) 2 tab PO DAILYP PRN PRN Reason: Constipation Last Admin: 05/10/22 20:37 Dose: 2 tab Sertraline HCl (Sertraline 50 Mg Tablet) 50 mg PO QHS [facility] Last Admin: 05/11/22 20:26 Dose: 50 mg Sodium Chloride (0.9 % Sodium Chloride 10 Ml Syringe) 10 ml IV Q8 [facility] Last Admin: 05/12/22 04:37 Dose: 10 ml Spironolactone (Spironolactone 25 Mg Tablet) 25 mg PO QDAY [facility] Last Admin: 05/11/22 08:55 Dose: 25 mg Tramadol HCl (Tramadol 50 Mg Tablet) 50 mg PO Q6HP PRN PRN Reason: Pain Last Admin: 05/12/22 05:19 Dose: 50 mg A/P Narrative A/P Narrative: A: *RLE/foot REcurrent cellulitis: -MRI no osteo -WC growing Strep agalactiae & Klebsiella *chronic LE wounds / venous stasis changes: *DM: A1c 8.0 *Obesity: bmi 37 *CKD III: *Anemia, chronic: *PAF: on amio/eliquis/bb *h/o systolic(40-45)/diastolic(II) CHF: from 2019 echo -on acei/lasix/aldactone *HTN: on acei/bb P: -IV Ceftriaxone, mrsa screen neg -Dr. Marte / wound care -f/u ESR/CRP -cont amio/bb/acie -Continue Lasix/Aldactone -basal and ssi -PT/OT -ppx: Eliquis Code: cpr ok, No Intubation Plan of Treatment: Plan: Plan for continuation of IV antibiotics AND local wound care noted. F/u at wound clinic after discharge Time Spent With Patient Time: Total time spent is greater than 50% in coordination of care (as documented) at patient's floor/unit and/or counseling patient: Subsequent: Total time with patient: 35 - 49 minutes QUALITY Stroke Symptom Onset Unknown: No VTE Deep Vein Thrombosis/Pulmonary Embolism Present on Admission: No
[2022-05-12] MEDS: INSULIN GLARGINE, HUMAN 1 UNIT/0.01 ML SQ SCH (08:59)
[2022-05-12] MEDS: cefTRIAXone 2 GM in DEXTROSE 5% IN WATER 50 ML IV SCH (08:59)
[2022-05-12] MEDS: METOPROLOL SUCCINATE 50 MG TAB.XL.24H PO SCH ×2 (09:00→20:37)
[2022-05-12] MEDS: APIXABAN 5 MG TABLET PO SCH ×2 (09:00→20:36)
[2022-05-12] MEDS: AMIODARONE HCL 200 MG TABLET PO SCH (09:00)
[2022-05-12] MEDS: FENOFIBRATE 43 MG CAPSULE PO SCH (09:00)
[2022-05-12] MEDS: DOCUSATE SODIUM 100 MG CAPSULE PO SCH ×2 (09:01→20:36)
[2022-05-12] MEDS: SPIRONOLACTONE 25 MG TABLET PO SCH (09:01)
[2022-05-12] MEDS: FUROSEMIDE 40 MG TABLET PO SCH (09:01)
[2022-05-12] MEDS: LISINOPRIL 20 MG TABLET PO SCH (09:01)
--- NOTE | 2022-05-12 12:17 | Internal Med Progress Note ---
SUBJECTIVE Subjective Patient information: Note initiated : 05/12/22 at 12:13 pm Service Date, if different from initiated Date: [] Patient: Ovidio Veloz a 71 y/o M admitted on 05/09/22 for RLE Swelling /Redness/Weeping. Chief Complaint: [] Interval history: History of present illness: Mr. Veloz is a 71 year old M With history of recurrent right foot infection and history of diabetes and obesity. Has history of chronic wounds. He was last admitted in November for several days for the same thing. Patient states his right foot gets bad then he gets better than he gets bad again. Patient dates about 3 days ago right foot and ankle started swelling becoming increasingly red and tender. He has had some drainage generalized over it which is clear yellow. Patient says he feels little lightheaded when he gets up moves around. Denies any fevers or chills. Will obtain MRI to rule out osteo of the foot. Contact wound care team. 2 MRI and no osteo or abscess noted. Pending further treatment recommendations by wound care team Dr. Marte. Patient says foot similar yesterday as far as swelling tenderness. No other acute events or new complaints. 05/[address] Kagn. Patient feels his leg is improving slowly. CRP elevated. Monitor. 05/10 No overnight event or new complaints. Follow-up inflammatory markers in the a.m. Continue recs per wound care. Wound cultures with Klebsiella and strep agalactiae. 05/11 Patient seems to be doing well from a flexion standpoint. Seen by wound care, wound doing well. Will need to eval by PT to determine where he can discharge to. Case management to work with him as well. Needs close follow-up given his recurrent infection. CRP improving. 05/12 No overnight event or new complaints. Patient doing well. Awaiting placement decisions [facility] facility. 05/13 Discussed antimicrobial management with infectious disease, ID recommended Keflex for 10 days as well as fluconazole for onychomycosis. Lasix 40 mg IV today and tomorrow for lower extremity edema then resume home Lasix at higher doses. Case management working on placement. Physical exam Head: Atraumatic, normal inspection. Eyes: normal appearance, no scleral icterus. Neck: full ROM Respiratory: no respiratory distress. Cardiovascular: normal rate and rhythm, S1, S2. GI/Abdominal: soft, nontender, no guarding. Extremities: full range of motion, nontender. Neurological: CN II-XII intact, intact motor, intact sensation. Psychiatric: normal mood. Skin: Right lower extremity cellulitis, improving, onychomycosis. Constitutional Vitals: Vital Signs Temp Pulse Resp BP Pulse Ox O2 Del Method O2 Flow Rate 98.4 F 55 L 22 126/74 98 Room Air 100 05/12/22 07:22 05/12/22 07:22 05/12/22 07:22 05/12/22 07:22 05/12/22 07:22 05/12/22 07:22 05/07/22 19:30 Period Temp Pulse Resp BP Sys/Spence Pulse Ox O2 Del Method O2 Flow Rate Last 24 Hr 97.4 F-98.4 F 52-61 20-24 115-126/68-86 96-99 Room Air-Room Air Intake and Output 05/12/22 05/12/22 05/12/22 03:59 11:59 19:59 Intake Total 250 225 Output Total 450 400 Balance -200 225 -400 Intake & Output: Intake & Output 05/12/22 05/12/22 05/12/22 03:59 11:59 19:59 Intake Total 250 225 Output Total 450 400 Balance -200 225 -400 Intake: IV 50 Rocephin 2 gm In Dextrose 5% in 50 Water 50 ml @ 100 mls/hr IV DAILY [facility] Rx#:[id number] Oral 250 175 Output: Void Amount 450 400 Other: Urine Appearance Clear Urine Color Yellow OBJ DATA Labs 05/08/22 06:23 05/09/22 05:46 Labs: Abnormal Lab Results 05/11/22 05/11/22 05:40 05:40 ESR 53 H C-Reactive Protein 6.40 H Meds: Medications Acetaminophen (Acetaminophen 325 Mg Tablet) 650 mg PO Q6HP PRN; Protocol PRN Reason: Per Pain Protocol/Fever > 101 Hydrocodone Bitart/Acetaminophen (Hydrocodone/Apap 5/325mg Tablet) 1 tab PO Q4HP PRN PRN Reason: PAIN LEVEL 3-6 Last Admin: 05/12/22 02:49 Dose: 1 tab Albuterol/Ipratropium (Ipratropium/Albuterol 3 Ml Ampul.Neb) 3 ml NEB Q4HP PRN PRN Reason: Shortness Of Breath Amiodarone HCl (Amiodarone Hcl 200 Mg Tablet) 200 mg PO QDAY [facility] Last Admin: 05/12/22 09:00 Dose: 200 mg Apixaban (Apixaban 5 Mg Tablet) 5 mg PO BID [facility] Last Admin: 05/12/22 09:00 Dose: 5 mg Dextrose (Dextrose 50% 50 Ml Vial) 0 ml IV UD PRN PRN Reason: Per Sliding Scale Diagnostic Test (Pha) (Accu-Chek 1 Each Strip) 1 each FS ACHS [facility] Last Admin: 05/12/22 11:22 Dose: 1 each Docusate Sodium (Docusate Sodium 100 Mg Capsule) 100 mg PO BID [facility] Last Admin: 05/12/22 09:01 Dose: 100 mg Fenofibrate (Fenofibrate 43 Mg Capsule) 129 mg PO DAILY [facility] Last Admin: 05/12/22 09:00 Dose: 129 mg Furosemide (Furosemide 40 Mg Tablet) 40 mg PO DAILY [facility] Last Admin: 05/12/22 09:01 Dose: 40 mg Furosemide (Furosemide 20 Mg Tablet) 20 mg PO DAILY@1400 [facility] Last Admin: 05/11/22 14:39 Dose: 20 mg Glucose (Dextrose 31 Gm Oral.Susp) 15 gm PO PRN PRN PRN Reason: Hypoglycemia Potassium Chloride 40 meq/ (Dextrose) 520 mls @ 130 mls/hr IV UD PRN PRN Reason: Potassium < 3 Magnesium Sulfate (Magnesium Sulfate) 2 gm in 50 mls @ 50 mls/hr IV UD PRN PRN Reason: Magnesium </= 1.6 Ceftriaxone Sodium 2 gm/ (Dextrose) 50 mls @ 100 mls/hr IV DAILY [facility]; Protocol Last Infusion: 05/12/22 09:30 Dose: Infused Insulin Glargine (Insulin Glargine, Human 1 Unit/0.01 Ml) [facility] [place] [facility] Admin: 05/12/22 08:59 Dose: 35 unit Insulin Human Lispro (Insulin Lispro 1 Unit/0.01 Ml Unit) 0 unit SQ [facility]; Protocol Last Admin: 05/12/22 11:26 Dose: 4 units Lisinopril (Lisinopril 20 Mg Tablet) 20 mg PO QDAY [facility] Last Admin: 05/12/22 09:01 Dose: 20 mg Metoprolol Succinate (Metoprolol Succinate 50 Mg Tab.Xl.24h) 100 mg PO BID [facility] Last Admin: 05/12/22 09:00 Dose: 100 mg Metoprolol Tartrate (Metoprolol Tartrate 5 Mg/5 Ml Vial) 5 mg IV Q2HP PRN PRN Reason: Tachyarrhythmias HR>110 Ondansetron HCl (Ondansetron 4 Mg/2 Ml Vial) 4 mg IV Q4HP PRN PRN Reason: Nausea And Vomiting Polyethylene Glycol (Polyethylene Glycol 3350 17 Gm Packet) 17 gm PO DAILYP PRN PRN Reason: Constipation Potassium Chloride (Potassium Chloride 20 Meq Tablet) 40 meq PO UD PRN PRN Reason: Potssium is 3-3.5 Potassium Chloride (Potassium Chloride 20 Meq Tablet) 40 meq PO UD PRN PRN Reason: Potassium < 3 Senna (Sennosides 1 Tablet) 2 tab PO DAILYP PRN PRN Reason: Constipation Last Admin: 05/10/22 20:37 Dose: 2 tab Sertraline HCl (Sertraline 50 Mg Tablet) 50 mg PO QHS [facility] Last Admin: 05/11/22 20:26 Dose: 50 mg Sodium Chloride (0.9 % Sodium Chloride 10 Ml Syringe) 10 ml IV Q8 [facility] Last Admin: 05/12/22 04:37 Dose: 10 ml Spironolactone (Spironolactone 25 Mg Tablet) 25 mg PO QDAY [facility] Last Admin: 05/12/22 09:01 Dose: 25 mg Tramadol HCl (Tramadol 50 Mg Tablet) 50 mg PO Q6HP PRN PRN Reason: Pain Last Admin: 05/12/22 05:19 Dose: 50 mg A/P Narrative A/P Narrative: Assessment: 71-year-old male with history of hypertension, diabetes mellitus, pa roxysmal atrial fibrillation, heart failure with reduced ejection fraction, chronic kidney disease stage III, chronic anemia, chronic lower extremity wounds and cellulitis now admitted for a recurrent right lower extremity cellulitis. *RLE/foot recurrent cellulitis: -MRI no osteo -WC growing Strep agalactiae & Klebsiella *chronic LE wounds / venous stasis changes: *Onychomycosis *DM: A1c 8.0 *Obesity: bmi 37 *CKD III: *Anemia, chronic: *PAF: on amio/eliquis/bb *h/o systolic(40-45)/diastolic(II) CHF: from 2019 echo -on acei/lasix/aldactone *HTN: on acei/bb P: -IV Ceftriaxone, mrsa screen neg -Oral fluconazole 200 mg weekly. -Lasix 40 mg IV twice daily, monitor renal function and volume status. -Dr. Marte / wound care -f/u ESR/CRP -cont amio/bb/acie -Continue Lasix/Aldactone -basal and ssi -PT/OT -ppx: Eliquis -Code: Limited with no intubation. -Disposition: Low intensity rehab on Keflex to complete 10 days of antibiotic therapy, weekly fluconazole for onychomycosis, possibly higher dose of oral Lasix. Plan of Treatment: Plan: Continue the patient on ceftriaxone and switch to p.o. Keflex for 14 days total antibiotic therapy when ready for discharge More aggressive diuresis Compression stocking Fluconazole 200 mg p.o. weekly for 52 weeks Time Spent With Patient Time: Total time spent is greater than 50% in coordination of care (as documented) at patient's floor/unit and/or counseling patient: QUALITY Stroke Symptom Onset Unknown: No VTE Deep Vein Thrombosis/Pulmonary Embolism Present on Admission: No
[2022-05-12] MEDS: FUROSEMIDE 20 MG TABLET PO SCH (13:49)
[2022-05-12] MEDS: SERTRALINE 50 MG TABLET PO SCH (20:35)
[2022-05-13] MEDS: 0.9 % SODIUM CHLORIDE 10 ML SYRINGE IV SCH ×3 (04:08→20:33)
[2022-05-13] MEDS: INSULIN LISPRO 1 UNIT/0.01 ML UNIT SQ SCH ×4 (07:14→20:32)
[2022-05-13] MEDS: FENOFIBRATE 43 MG CAPSULE PO SCH (08:55)
[2022-05-13] MEDS: METOPROLOL SUCCINATE 50 MG TAB.XL.24H PO SCH ×2 (08:55→20:32)
[2022-05-13] MEDS: cefTRIAXone 2 GM in DEXTROSE 5% IN WATER 50 ML IV SCH (08:55)
[2022-05-13] MEDS: AMIODARONE HCL 200 MG TABLET PO SCH (08:56)
[2022-05-13] MEDS: SPIRONOLACTONE 25 MG TABLET PO SCH (08:56)
[2022-05-13] MEDS: APIXABAN 5 MG TABLET PO SCH ×2 (08:56→20:32)
[2022-05-13] MEDS: LISINOPRIL 20 MG TABLET PO SCH (08:56)
[2022-05-13] MEDS: DOCUSATE SODIUM 100 MG CAPSULE PO SCH ×2 (08:56→20:32)
[2022-05-13] MEDS: INSULIN GLARGINE, HUMAN 1 UNIT/0.01 ML SQ SCH (08:56)
[2022-05-13] MEDS: FUROSEMIDE 40 MG TABLET PO SCH (08:56)
--- NOTE | 2022-05-13 11:52 | Internal Med Progress Note ---
Medical - Auxillary Note Subjective Patient Information: Note initiated : 05/13/22 at 11:50 am Service Date, if different from initiated Date: [] Patient: Ovidio Veloz 71 y/o M admitted on 05/09/22 for RLE Swelling/Redness/Weeping. Chief Complaint: [] Vital Signs Temp Pulse Resp BP Pulse Ox O2 Del Method O2 Flow Rate 97.7 F 55 L 22 133/73 97 Room Air 98 05/13/22 07:48 05/13/22 07:48 05/13/22 07:48 05/13/22 07:48 05/13/22 03:30 05/13/22 07:48 05/13/22 07:48 Period Temp Pulse Resp BP Sys/Spence Pulse Ox O2 Del Method O2 Flow Rate Last 24 Hr 97.3 F-97.7 F 54-59 22-24 118-133/62-86 91-99 Room Air-Room Air 98 Intake and Output 05/12/22 05/13/22 05/13/22 19:59 03:59 11:59 Intake Total 400 400 840 Output Total 1530 250 500 Balance -1130 150 340 Weight 131.451 kg Medications Acetaminophen (Acetaminophen 325 Mg Tablet) 650 mg PO Q6HP PRN; Protocol PRN Reason: Per Pain Protocol/Fever > 101 Hydrocodone Bitart/Acetaminophen (Hydrocodone/Apap 5/325mg Tablet) 1 tab PO Q4HP PRN PRN Reason: PAIN LEVEL 3-6 Last Admin: 05/12/22 19:21 Dose: 1 tab Albuterol/Ipratropium (Ipratropium/Albuterol 3 Ml Ampul.Neb) 3 ml NEB Q4HP PRN PRN Reason: Shortness Of Breath Amiodarone HCl (Amiodarone Hcl 200 Mg Tablet) 200 mg PO QDAY [facility] Last Admin: 05/13/22 08:56 Dose: 200 mg Apixaban (Apixaban 5 Mg Tablet) 5 mg PO BID [facility] Last Admin: 05/13/22 08:56 Dose: 5 mg Dextrose (Dextrose 50% 50 Ml Vial) 0 ml IV UD PRN PRN Reason: Per Sliding Scale Diagnostic Test (Pha) (Accu-Chek 1 Each Strip) 1 each FS ACHS [facility] Last Admin: 05/13/22 11:18 Dose: 1 each Docusate Sodium (Docusate Sodium 100 Mg Capsule) 100 mg PO BID [facility] Last Admin: 05/13/22 08:56 Dose: 100 mg Fenofibrate (Fenofibrate 43 Mg Capsule) 129 mg PO DAILY [facility] Last Admin: 05/13/22 08:55 Dose: 129 mg Furosemide (Furosemide 40 Mg Tablet) 40 mg PO DAILY [facility] Last Admin: 05/13/22 08:56 Dose: 40 mg Furosemide (Furosemide 20 Mg Tablet) 20 mg PO DAILY@1400 [facility] Last Admin: 05/12/22 13:49 Dose: 20 mg Glucose (Dextrose 31 Gm Oral.Susp) 15 gm PO PRN PRN PRN Reason: Hypoglycemia Potassium Chloride 40 meq/ (Dextrose) 520 mls @ 130 mls/hr IV UD PRN PRN Reason: Potassium < 3 Magnesium Sulfate (Magnesium Sulfate) 2 gm in 50 mls @ 50 mls/hr IV UD PRN PRN Reason: Magnesium </= 1.6 Ceftriaxone Sodium 2 gm/ (Dextrose) 50 mls @ 100 mls/hr IV DAILY [facility]; Protocol Last Admin: 05/13/22 08:55 Dose: 100 mls/hr Insulin Glargine (Insulin Glargine, Human 1 Unit/0.01 Ml) 35 unit SQ QAM [facility] Last Admin: 05/13/22 08:56 Dose: 35 unit Insulin Human Lispro (Insulin Lispro 1 Unit/0.01 Ml Unit) 0 unit SQ ACHS [facility]; Protocol Last Admin: 05/13/22 11:23 Dose: 4 units Lisinopril (Lisinopril 20 Mg Tablet) 20 mg PO QDAY [facility] Last Admin: 05/13/22 08:56 Dose: 20 mg Metoprolol Succinate (Metoprolol Succinate 50 Mg Tab.Xl.24h) 100 mg PO BID [facility] Last Admin: 05/13/22 08:55 Dose: 100 mg Metoprolol Tartrate (Metoprolol Tartrate 5 Mg/5 Ml Vial) 5 mg IV Q2HP PRN PRN Reason: Tachyarrhythmias HR>110 Ondansetron HCl (Ondansetron 4 Mg/2 Ml Vial) 4 mg IV Q4HP PRN PRN Reason: Nausea And Vomiting Polyethylene Glycol (Polyethylene Glycol 3350 17 Gm Packet) 17 gm PO DAILYP PRN PRN Reason: Constipation Potassium Chloride (Potassium Chloride 20 Meq Tablet) 40 meq PO UD PRN PRN Reason: Potssium is 3-3.5 Potassium Chloride (Potassium Chloride 20 Meq Tablet) 40 meq PO UD PRN PRN Reason: Potassium < 3 Senna (Sennosides 1 Tablet) 2 tab PO DAILYP PRN PRN Reason: Constipation Last Admin: 05/10/22 20:37 Dose: 2 tab Sertraline HCl (Sertraline 50 Mg Tablet) 50 mg PO QHS [facility] Last Admin: 05/12/22 20:35 Dose: 50 mg Sodium Chloride (0.9 % Sodium Chloride 10 Ml Syringe) 10 ml IV Q8 [facility] Last Admin: 05/13/22 04:08 Dose: 10 ml Spironolactone (Spironolactone 25 Mg Tablet) 25 mg PO QDAY [facility] Last Admin: 05/13/22 08:56 Dose: 25 mg Tramadol HCl (Tramadol 50 Mg Tablet) 50 mg PO Q6HP PRN PRN Reason: Pain Last Admin: 05/12/22 05:19 Dose: 50 mg Result [facility] 05/08/22 06:23 05/09/22 05:46 Abnormal Labs 05/11/22 05/11/22 05:40 05:40 ESR 53 H C-Reactive Protein 6.40 H Assessment & Plan Plan Detail Plan: Discussed antibiotic management for recurrent lower extremity cellulitis with tele-infectious disease. Infectious disease recommended transitioning to oral antibiotics, either oral cephalosporin or Augmentin to complete 7 to 10 days of antibiotic therapy. The plan is discharges to transition the patient from ceftriaxone to Cefpodoxime 400 mg Q12 hrs for six more days to complete 10 days of antibiotic treatment.
--- NOTE | 2022-05-13 14:27 | Infectious Disease Consult ---
Telemedicine Intake Consent for assessment and treatment to occur via virtual technology obtained from: Patient Location of Provider: Home Patient location: Med/Surg Unit [facility] Date of Consult Consult Date: 05/13/22 Primary Care Provider: Serafin Sy MD Consult Narrative Patient Information: Note initiated : 05/13/22 at 2:24 pm Service Date, if different from initiated Date: [] Patient: Ovidio Veloz 71 y/o M admitted on 05/09/22 for RLE Swelling/Redness/Weeping. Chief Complaint: [] 71-year-old with history of bilateral lower extremity edema, venous insufficiency presented to emergency room on 05/07 secondary to right lower extremity weeping and erythema. Wound culture is positive for Klebsiella oxytoca and group B strep. Patient has been on ceftriaxone and clinically improving. ID is consulted for recurrent cellulitis as he had this problem before. It is difficult to get a history from the patient. He has noncompliant per nursing staff Chief complaint: Cellulitis Reason for consult: Recurrent cellulitis cc:: CC: Zeeshan Richards PFSH PFSH All Active Problems Cellulitis (Acute) Cellulitis of leg, right (Acute) Cellulitis of leg, right (Acute) Lower extremity ulceration (Acute) Cellulitis (Acute) Venous insufficiency (Acute) Frequent falls (Acute) Blunt head trauma (Acute) Foreign body of scalp (Acute) Lower extremity weakness (Acute) Pediculosis (Acute) Depression (Acute) BPH associated with nocturia (Acute) Lower extremity ulceration (Acute) Chronic pain (Acute) Annual physical exam (Acute) Medicare annual wellness visit, initial (Acute) Community acquired pneumonia (Acute) Congestive heart failure (Acute) Chronic kidney disease (Acute) Atrial fibrillation (Chronic) History of tonsillectomy (Acute) History of open reduction and internal fixation (ORIF) procedure (Acute) History of lumbosacral spine surgery (Acute) History of knee replacement (Acute) History of adenoidectomy (Acute) Reactive airway disease (Acute) Obesity (Acute) Neurodermatitis (Acute) Hypertension, essential (Chronic) Hyperlipidemia (Acute) Type 2 diabetes mellitus (Chronic) Dermatophytosis of groin (Acute) Cough (Acute) Colonic benign neoplasm (Acute) Ankle fracture (Acute) Medical History Ankle fracture Closed, R Annual physical exam BPH associated with nocturia Chronic pain Colonic benign neoplasm Cough Depression Dermatophytosis of groin 08/06/2014 Foreign body of scalp Hyperlipidemia Hypertension, essential 50s Lower extremity weakness Medicare annual wellness visit, initial Neurodermatitis 08/06/2014 Obesity Pediculosis Reactive airway disease Type 2 diabetes mellitus diagnosed in his 50s Surgical History History of adenoidectomy History of knee replacement left knee History of lumbosacral spine surgery decompression History of open reduction and internal fixation (ORIF) procedure Right ankle History of tonsillectomy Family History Mother , at 80 plus old age Atherosclerosis of coronary artery Essential hypertension Father , at 72 Malignant neoplasm of lung Social History marital status: education level: high school occupation: Transportation smoking status: Former smoker alcohol intake frequency: holiday/special occasion only substance use type: does not use additional history: chewing tobacco since age 13 MEDS/ALLERGIES Home Medications and Allergies Home Medications Medication Instructions Recorded Confirmed Type apixaban 5 mg tablet (Eliquis) 5 mg PO BID 02/16/18 05/08/22 History omega-3 fatty acids 1,000 mg 1,000 mg PO QDAY 03/22/18 05/08/22 History capsule (Fish Oil Concentrate) pen needle, diabetic 32 gauge x #100 ea 10/24/19 05/08/22 Rx " insulin detemir U-100 100 unit/mL 35 unit (0.35 mL) subcut QAM #30 mL 04/15/20 05/08/22 Rx (3 mL) subcutaneous pen (Levemir FlexTouch U-100 Insulin) amiodarone 200 mg tablet 200 mg PO QDAY #90 tabs 09/11/21 05/08/22 Rx fenofibrate 160 mg tablet 160 mg PO QDAY #90 tabs 09/11/21 05/08/22 Rx lisinopril 20 mg tablet 20 mg PO QDAY #90 tabs 09/11/21 05/08/22 Rx furosemide 40 mg tablet (Lasix) 40 mg PO .COMPLEX #135 tabs 10/07/21 05/08/22 Rx metoprolol succinate 100 mg 100 mg PO BID #180 tabs 11/11/21 05/08/22 Rx tablet,extended release 24 hr (Toprol XL) blood sugar diagnostic (Accu-Chek #100 ea 12/18/21 05/08/22 Rx SmartView Test Strips) metformin 1,000 mg tablet 1,000 mg PO BID #180 tabs 12/23/21 05/08/22 Rx spironolactone 25 mg tablet 25 mg PO QDAY #90 tabs 12/23/21 05/08/22 Rx (Aldactone) glipizide 10 mg tablet 10 mg PO TID #270 tabs 03/03/22 05/08/22 Rx sertraline 50 mg tablet 50 mg PO QHS #30 tabs 03/19/22 05/08/22 Rx sitagliptin phosphate 100 mg 100 mg PO QDAY #90 tabs 03/25/22 05/08/22 Rx tablet (Januvia) tramadol 50 mg tablet 50 mg PO Q6H PRN pain #60 tabs 03/25/22 05/08/22 Rx blood sugar diagnostic (Accu-Chek 05/07/22 05/08/22 History SmartView Test Strips) Allergies Allergy/AdvReac Type Severity Reaction Status Date / Time No Known Drug Allergies Allergy Verified 03/25/22 10:07 Physical Examination Vital Signs Vital signs: Temp Pulse Resp BP Pulse Ox O2 Del Method O2 Flow Rate 97.7 F 55 L 22 133/73 97 Room Air 98 05/13/22 07:48 05/13/22 07:48 05/13/22 07:48 05/13/22 07:48 05/13/22 03:30 05/13/22 07:48 05/13/22 07:48 Constitutional General appearance: no acute distress and other Respiratory Effort: normal Extremities Extremities: other (Bilateral lower extremity 3-4+ edema with onychomycosis and erythema from the feet to below the knee on the right and a patch of erythema of the left tillman. There are ruptured bullae on the left tillman. Multiple wounds on the right) Results Laboratory Findings 05/08/22 06:23 05/09/22 05:46 Abnormal lab findings: Abnormal Labs 05/07/22 05/07/22 05/07/22 11:32 11:32 11:50 Hgb 12.6 L MCH 24.3 L MCHC 29.9 L RDW 22.4 H Neut % (Auto) 81.9 H Lymph % (Auto) 6.4 L Lymph # (Auto) 0.65 L [place] # (Auto) 1.00 H Absolute Neutrophils 8.38 H ESR 44 H POC VBG pO2 POC Venous O2 Sat POC BUN BUN Creatinine POC Creatinine Glucose POC Glucose Hemoglobin A1c Total Bilirubin Direct Bilirubin Lactate Dehydrogenase C-Reactive Protein 7.70 H 05/07/22 05/07/22 05/07/22 11:50 11:57 12:00 Hgb MCH MCHC RDW Neut % (Auto) Lymph % (Auto) Lymph # (Auto) [place] # (Auto) Absolute Neutrophils ESR POC VBG pO2 19 L POC Venous O2 Sat 24.0 L POC BUN 32 H BUN 30 H Creatinine 1.3 H POC Creatinine 1.4 H Glucose 162 H POC Glucose 163 H Hemoglobin A1c 7.3 H Total Bilirubin Direct Bilirubin Lactate Dehydrogenase C-Reactive Protein 05/08/22 05/08/22 05/09/22 06:22 06:23 05:46 Hgb 12.1 L MCH 24.4 L MCHC 30.1 L RDW 22.4 H Neut % (Auto) 78.8 H Lymph % (Auto) 7.8 L Lymph # (Auto) 0.69 L [place] # (Auto) 0.97 H Absolute Neutrophils ESR POC VBG pO2 POC Venous O2 Sat POC BUN BUN 30 H 32 H Creatinine 1.3 H POC Creatinine Glucose 125 H 196 H POC Glucose Hemoglobin A1c Total Bilirubin 1.2 H Direct Bilirubin 0.7 H Lactate Dehydrogenase 228 H C-Reactive Protein 9.90 H 05/11/22 05/11/22 05:40 05:40 Hgb MCH MCHC RDW Neut % (Auto) Lymph % (Auto) Lymph # (Auto) [place] # (Auto) Absolute Neutrophils ESR 53 H POC VBG pO2 POC Venous O2 Sat POC BUN BUN Creatinine POC Creatinine Glucose POC Glucose Hemoglobin A1c Total Bilirubin Direct Bilirubin Lactate Dehydrogenase C-Reactive Protein 6.40 H Microbiology: Microbiology 05/07/22 11:45 Blood Blood Culture - Final 05/07/22 11:35 Blood Blood Culture - Final 05/07/22 14:05 Foot - Right Gram Stain - Final 05/07/22 14:05 Foot - Right Wound Culture - Final Strep agalactiae - (group b) Klebsiella oxytoca 05/07/22 16:00 Nose - Both Right and Left MRSA (PCR) - Final A/P Sepsis Sepsis Identified: No Narrative A/P Narrative: Patient with recurrent cellulitis due to chronic lower extremity edema and onychomycosis. It is important that we control the edema as well as treatment for the onychomycosis as needed on his risk factors Plan of Treatment: Plan: Continue the patient on ceftriaxone and switch to p.o. Keflex for 14 days total antibiotic therapy when ready for discharge More aggressive diuresis Compression stocking Fluconazole 200 mg p.o. weekly for 52 weeks Time Spent With Patient Time: Total time spent is greater than 50% in coordination of care (as documented) at patient's floor/unit and/or counseling patient:
[2022-05-13] MEDS ORDERED: FLUCONAZOLE 100 MG TABLET PO SCH (14:30)
[2022-05-13] MEDS: FUROSEMIDE 40 MG/4 ML VIAL IV SCH (14:55)
[2022-05-13] MEDS: FUROSEMIDE 20 MG TABLET PO SCH (15:28)
[2022-05-13] MEDS: SERTRALINE 50 MG TABLET PO SCH (20:32)
[2022-05-14] MEDS: HYDROcodone/APAP 5/325MG TABLET PO PRN ×2 (02:17→22:15)
[2022-05-14] MEDS: 0.9 % SODIUM CHLORIDE 10 ML SYRINGE IV SCH ×3 (05:15→20:31)
[2022-05-14 06:14] LABS: Albumin 3.3 gm/dL (3.2-5.2); Blood Urea Nitrogen 37 mg/dL (8-23); Calcium 9.4 mg/dL (8.6-10.4); Carbon Dioxide 28 mmol/L (22-30); Chloride 99 mmol/L (96-108); Glomerular Filtration Rate 54; Glucose 136 mg/dL (70-105); Phosphorous 3.1 mg/dL (2.5-4.5)
[2022-05-14] MEDS: INSULIN LISPRO 1 UNIT/0.01 ML UNIT SQ SCH ×4 (07:20→20:31)
[2022-05-14] MEDS: FUROSEMIDE 40 MG/4 ML VIAL IV SCH ×4 (07:24→20:31)
[2022-05-14] MEDS ORDERED: METOLAZONE 2.5 MG TABLET PO ONE (07:44)
[2022-05-14] MEDS: cefTRIAXone 2 GM in DEXTROSE 5% IN WATER 50 ML IV SCH (08:58)
[2022-05-14] MEDS: INSULIN GLARGINE, HUMAN 1 UNIT/0.01 ML SQ SCH (09:15)
[2022-05-14] MEDS: METOPROLOL SUCCINATE 50 MG TAB.XL.24H PO SCH ×2 (09:57→20:31)
[2022-05-14] MEDS: FENOFIBRATE 43 MG CAPSULE PO SCH (09:57)
[2022-05-14] MEDS: SPIRONOLACTONE 25 MG TABLET PO SCH (09:58)
[2022-05-14] MEDS: DOCUSATE SODIUM 100 MG CAPSULE PO SCH ×2 (09:58→20:31)
[2022-05-14] MEDS: APIXABAN 5 MG TABLET PO SCH ×2 (09:58→20:32)
[2022-05-14] MEDS: AMIODARONE HCL 200 MG TABLET PO SCH (09:58)
[2022-05-14] MEDS: LISINOPRIL 20 MG TABLET PO SCH (09:58)
--- NOTE | 2022-05-14 10:30 | Internal Med Progress Note ---
SUBJECTIVE Subjective Patient information: Note initiated : 05/14/22 at 10:23 am Service Date, if different from initiated Date: [] Patient: Ovidio Veloz a 71 y/o M admitted on 05/09/22 for RLE Swelling /Redness/Weeping. Chief Complaint: [] Interval history: History of present illness: Mr. Veloz is a 71 year old M With history of recurrent right foot infection and history of diabetes and obesity. Has history of chronic wounds. He was last admitted in November for several days for the same thing. Patient states his right foot gets bad then he gets better than he gets bad again. Patient dates about 3 days ago right foot and ankle started swelling becoming increasingly red and tender. He has had some drainage generalized over it which is clear yellow. Patient says he feels little lightheaded when he gets up moves around. Denies any fevers or chills. Will obtain MRI to rule out osteo of the foot. Contact wound care team. 2 MRI and no osteo or abscess noted. Pending further treatment recommendations by wound care team Dr. Marte. Patient says foot similar yesterday as far as swelling tenderness. No other acute events or new complaints. 05/[address] Kang. Patient feels his leg is improving slowly. CRP elevated. Monitor. 05/10 No overnight event or new complaints. Follow-up inflammatory markers in the a.m. Continue recs per wound care. Wound cultures with Klebsiella and strep agalactiae. 05/11 Patient seems to be doing well from a flexion standpoint. Seen by wound care, wound doing well. Will need to eval by PT to determine where he can discharge to. Case management to work with him as well. Needs close follow-up given his recurrent infection. CRP improving. 05/12 No overnight event or new complaints. Patient doing well. Awaiting placement decisions nursing home facility. 05/13 Discussed antimicrobial management with infectious disease, ID recommended Keflex for 10 days as well as fluconazole for onychomycosis. Lasix 40 mg IV today and tomorrow for lower extremity edema then resume home Lasix at higher doses. Case management working on placement. 05/14 Increase Lasix frequency dosing to Lasix 40 mg IV 3 times daily. Will add a dose of metolazone today. Recheck transthoracic echocardiogram, last available echo was in 2019. Physical exam Head: Atraumatic, normal inspection. Eyes: normal appearance, no scleral icterus. Neck: full ROM Respiratory: no respiratory distress. Cardiovascular: normal rate and rhythm, S1, S2. GI/Abdominal: soft, nontender, no guarding. Extremities:bilateral lower extremity edema, sacral edema, full range of motion, nontender. Neurological: CN II-XII intact, intact motor, intact sensation. Psychiatric: normal mood. Skin: Right lower extremity cellulitis, improving, onychomycosis. Constitutional Vitals: Vital Signs Temp Pulse Resp BP Pulse Ox O2 Del Method O2 Flow Rate 97.5 F 52 L 16 139/79 98 Room Air 98 05/14/22 07:48 05/14/22 07:48 05/14/22 07:48 05/14/22 07:48 05/14/22 07:48 05/14/22 07:48 05/13/22 07:48 Period Temp Pulse Resp BP Sys/Spence Pulse Ox O2 Del Method O2 Flow Rate Last 24 Hr 97.2 F-98.4 F 52-58 16-22 115-139/67-90 96-98 Room Air-Room Air Intake and Output 05/13/22 05/14/22 05/14/22 19:59 03:59 11:59 Intake Total 600 0 Output Total 611 670 9534 Balance 100 -850 -1040 Weight 128.593 kg Intake & Output: Intake & Output 05/13/22 05/14/22 05/14/22 19:59 03:59 11:59 Intake Total 600 0 Output Total 567 901 3495 Balance 100 -850 -1040 Weight 128.593 kg Intake: Oral 600 0 Output: Void Amount [phone] Other: Urine Appearance Clear Clear Clear Urine Color Yellow Yellow Bright Yellow Urine Odor Normal Stool Size Large Stool Color Brown Bright Red Blood Stool Consistency Soft Formed # Voids 2 # Bowel Movements 1 OBJ DATA Labs 05/08/22 06:23 05/14/22 05:17 Labs: Abnormal Lab Results 05/14/22 05:17 BUN 37 H Creatinine 1.3 H Glucose 136 H Meds: Medications Acetaminophen (Acetaminophen 325 Mg Tablet) 650 mg PO Q6HP PRN; Protocol PRN Reason: Per Pain Protocol/Fever > 101 Hydrocodone Bitart/Acetaminophen (Hydrocodone/Apap 5/325mg Tablet) 1 tab PO Q4HP PRN PRN Reason: PAIN LEVEL 3-6 Last Admin: 05/14/22 02:17 Dose: 1 tab Albuterol/Ipratropium (Ipratropium/Albuterol 3 Ml Ampul.Neb) 3 ml NEB Q4HP PRN PRN Reason: Shortness Of Breath Amiodarone HCl (Amiodarone Hcl 200 Mg Tablet) 200 mg PO QDAY [facility] Last Admin: 05/14/22 09:58 Dose: 200 mg Apixaban (Apixaban 5 Mg Tablet) 5 mg PO BID [facility] Last Admin: 05/14/22 09:58 Dose: 5 mg Dextrose (Dextrose 50% 50 Ml Vial) 0 ml IV UD PRN PRN Reason: Per Sliding Scale Diagnostic Test (Pha) (Accu-Chek 1 Each Strip) 1 each FS ACHS [facility] Last Admin: 05/14/22 07:18 Dose: 1 each Docusate Sodium (Docusate Sodium 100 Mg Capsule) 100 mg PO BID [facility] Last Admin: 05/14/22 09:58 Dose: 100 mg Fenofibrate (Fenofibrate 43 Mg Capsule) 129 mg PO DAILY [facility] Last Admin: 05/14/22 09:57 Dose: 129 mg Fluconazole (Fluconazole 100 Mg Tablet) 200 mg PO Q7D [facility]; Protocol Last Admin: 05/13/22 14:55 Dose: 200 mg Furosemide (Furosemide 40 Mg/4 Ml Vial) 40 mg IV TID [facility] Last Admin: 05/14/22 09:59 Dose: Not Given Glucose (Dextrose 31 Gm Oral.Susp) 15 gm PO PRN PRN PRN Reason: Hypoglycemia Potassium Chloride 40 meq/ (Dextrose) 520 mls @ 130 mls/hr IV UD PRN PRN Reason: Potassium < 3 Magnesium Sulfate (Magnesium Sulfate) 2 gm in 50 mls @ 50 mls/hr IV UD PRN PRN Reason: Magnesium </= 1.6 Ceftriaxone Sodium 2 gm/ (Dextrose) 50 mls @ 100 mls/hr IV DAILY [facility]; Protocol Last Admin: 05/14/22 08:58 Dose: 100 mls/hr Insulin Glargine (Insulin Glargine, Human 1 Unit/0.01 Ml) [facility] [place] Admin: 05/14/22 09:15 Dose: 35 unit Insulin Human Lispro (Insulin Lispro 1 Unit/0.01 Ml Unit) 0 unit SQ ACHS [facility]; Protocol Last Admin: 05/14/22 07:20 Dose: Not Given Lisinopril (Lisinopril 20 Mg Tablet) 20 mg PO QDAY [facility] Last Admin: 05/14/22 09:58 Dose: 20 mg Metoprolol Succinate (Metoprolol Succinate 50 Mg Tab.Xl.24h) 100 mg PO BID [facility] Last Admin: 05/14/22 09:57 Dose: 100 mg Metoprolol Tartrate (Metoprolol Tartrate 5 Mg/5 Ml Vial) 5 mg IV Q2HP PRN PRN Reason: Tachyarrhythmias HR>110 Ondansetron HCl (Ondansetron 4 Mg/2 Ml Vial) 4 mg IV Q4HP PRN PRN Reason: Nausea And Vomiting Polyethylene Glycol (Polyethylene Glycol 3350 17 Gm Packet) 17 gm PO DAILYP PRN PRN Reason: Constipation Potassium Chloride (Potassium Chloride 20 Meq Tablet) 40 meq PO UD PRN PRN Reason: Potssium is 3-3.5 Potassium Chloride (Potassium Chloride 20 Meq Tablet) 40 meq PO UD PRN PRN Reason: Potassium < 3 Senna (Sennosides 1 Tablet) 2 tab PO DAILYP PRN PRN Reason: Constipation Last Admin: 05/10/22 20:37 Dose: 2 tab Sertraline HCl (Sertraline 50 Mg Tablet) 50 mg PO QHS [facility] Last Admin: 05/13/22 20:32 Dose: 50 mg Sodium Chloride (0.9 % Sodium Chloride 10 Ml Syringe) 10 ml IV Q8 [facility] Last Admin: 05/14/22 05:15 Dose: 10 ml Spironolactone (Spironolactone 25 Mg Tablet) 25 mg PO QDAY [facility] Last Admin: 05/14/22 09:58 Dose: 25 mg Tramadol HCl (Tramadol 50 Mg Tablet) 50 mg PO Q6HP PRN PRN Reason: Pain Last Admin: 05/12/22 05:19 Dose: 50 mg A/P Narrative A/P Narrative: Assessment: 71-year-old male with history of hypertension, diabetes mellitus, paroxysmal atrial fibrillation, heart failure with reduced ejection fraction, chronic kidney disease stage III, chronic anemia, chronic lower extremity wounds and cellulitis now admitted for a recurrent right lower extremity cellulitis. *RLE/foot recurrent cellulitis: -MRI no osteo -WC growing Strep agalactiae & Klebsiella *Volume overload *chronic LE wounds / venous stasis changes: *Onychomycosis *DM: A1c 8.0 *Obesity: bmi 37 *CKD III: *Anemia, chronic: *PAF: on amio/eliquis/bb *h/o systolic(40-45)/diastolic(II) CHF: from 2019 echo -on acei/lasix/aldactone *HTN: on acei/bb P: -IV Ceftriaxone while inpatient, discharge on Keflex to complete 14 days. -Oral fluconazole 200 mg weekly for 52 weeks. -Lasix 40 mg IV TID, monitor renal function and volume status. -Metolazone 5 mg once today. -Transthoracic echocardiogram. -Wound cares. -cont amio/bb/acie -basal and ssi -PT/OT -ppx: Eliquis -Code: Limited with no intubation. -Disposition: Low intensity rehab on Keflex to complete 14 days of antibiotic therapy, weekly fluconazole for onychomycosis, possibly higher dose of oral Lasix. Plan of Treatment: Plan: Continue the patient on ceftriaxone and switch to p.o. Keflex for 14 days total antibiotic therapy when ready for discharge More aggressive diuresis Compression stocking Fluconazole 200 mg p.o. weekly for 52 weeks Time Spent With Patient Time: Total time spent is greater than 50% in coordination of care (as documented) at patient's floor/unit and/or counseling patient: QUALITY Stroke Symptom Onset Unknown: No VTE Deep Vein Thrombosis/Pulmonary Embolism Present on Admission: No
[2022-05-14] MEDS ORDERED: FUROSEMIDE 20 MG TABLET PO SCH (14:00)
[2022-05-14] MEDS: SERTRALINE 50 MG TABLET PO SCH (20:32)
[2022-05-14] MEDS: traMADol 50 MG TABLET PO PRN (23:43)
[2022-05-15] MEDS: 0.9 % SODIUM CHLORIDE 10 ML SYRINGE IV SCH ×3 (05:04→21:12)
[2022-05-15 06:49] LABS: Albumin 3.2 gm/dL (3.2-5.2); Blood Urea Nitrogen 39 mg/dL (8-23); Calcium 9.4 mg/dL (8.6-10.4); Carbon Dioxide 34 mmol/L (22-30); Chloride 95 mmol/L (96-108); Glomerular Filtration Rate 54; Glucose 89 mg/dL (70-105); Phosphorous 3.2 mg/dL (2.5-4.5)
[2022-05-15] MEDS: INSULIN LISPRO 1 UNIT/0.01 ML UNIT SQ SCH ×4 (07:19→20:59)
[2022-05-15] MEDS ORDERED: METOLAZONE 2.5 MG TABLET PO ONE (08:30)
[2022-05-15] MEDS: FUROSEMIDE 40 MG/4 ML VIAL IV SCH ×3 (09:09→21:12)
[2022-05-15] MEDS: INSULIN GLARGINE, HUMAN 1 UNIT/0.01 ML SQ SCH (09:09)
[2022-05-15] MEDS: METOPROLOL SUCCINATE 50 MG TAB.XL.24H PO SCH ×2 (09:14→21:14)
[2022-05-15] MEDS: FENOFIBRATE 43 MG CAPSULE PO SCH (09:15)
[2022-05-15] MEDS: AMIODARONE HCL 200 MG TABLET PO SCH (09:15)
[2022-05-15] MEDS: DOCUSATE SODIUM 100 MG CAPSULE PO SCH ×2 (09:16→21:02)
[2022-05-15] MEDS: APIXABAN 5 MG TABLET PO SCH ×2 (09:16→21:02)
[2022-05-15] MEDS: LISINOPRIL 20 MG TABLET PO SCH (09:16)
[2022-05-15] MEDS: SPIRONOLACTONE 25 MG TABLET PO SCH (09:16)
[2022-05-15] MEDS: cefTRIAXone 2 GM in DEXTROSE 5% IN WATER 50 ML IV SCH (09:26)
--- NOTE | 2022-05-15 10:17 | Internal Med Progress Note ---
SUBJECTIVE Subjective Patient information: Note initiated : 05/15/22 at 10:14 am Service Date, if different from initiated Date: [] Patient: Ovidio Veloz a 71 y/o M admitted on 05/09/22 for RLE Swelling /Redness/Weeping. Chief Complaint: [] Interval history: History of present illness: Mr. Veloz is a 71 year old M With history of recurrent right foot infection and history of diabetes and obesity. Has history of chronic wounds. He was last admitted in November for several days for the same thing. Patient states his right foot gets bad then he gets better than he gets bad again. Patient dates about 3 days ago right foot and ankle started swelling becoming increasingly red and tender. He has had some drainage generalized over it which is clear yellow. Patient says he feels little lightheaded when he gets up moves around. Denies any fevers or chills. Will obtain MRI to rule out osteo of the foot. Contact wound care team. 05/08 MRI and no osteo or abscess noted. Pending further treatment recommendations by wound care team Dr. Marte. Patient says foot similar yesterday as far as swelling tenderness. No other acute events or new complaints. 05/[address] Kang. Patient feels his leg is improving slowly. CRP elevated. Monitor. 05/10 No overnight event or new complaints. Follow-up inflammatory markers in the a.m. Continue recs per wound care. Wound cultures with Klebsiella and strep agalactiae. 05/11 Patient seems to be doing well from a flexion standpoint. Seen by wound care, wound doing well. Will need to eval by PT to determine where he can discharge to. Case management to work with him as well. Needs close follow-up given his recurrent infection. CRP improving. 05/12 No overnight event or new complaints. Patient doing well. Awaiting placement decisions alf facility. 05/13 Discussed antimicrobial management with infectious disease, ID recommended Keflex for 10 days as well as fluconazole for onychomycosis. Lasix 40 mg IV today and tomorrow for lower extremity edema then resume home Lasix at higher doses. Case management working on placement. 05/14 Increase Lasix frequency dosing to Lasix 40 mg IV 3 times daily. Will add a dose of metolazone today. Recheck transthoracic echocardiogram, last available echo was in 2019. 05/15 No significant events overnight, this morning the patient's heart rate was in the upper 40s so we will hold the morning dose of metoprolol succinate. The pat srinath feels like his ambulation has improved and no longer wants to go to low intensity rehab. He says he wants to go home at discharge. We will continue diuresis for today, potentially discharge to home tomorrow with home health. Transthoracic echocardiogram showed an LVEF of 35%, in March 2020 the LVEF was 40 to 45%. There is also moderate left ventricular global hypokinesis, the right ventricle is moderate to severely dilated and the right ventricular systolic function appears mildly reduced. Physical exam Head: Atraumatic, normal inspection. Eyes: normal appearance, no scleral icterus. Neck: full ROM Respiratory: no respiratory distress. Cardiovascular: normal rate and rhythm, S1, S2. GI/Abdominal: soft, nontender, no guarding. Extremities:bilateral lower extremity edema appears to be improving, sacral edema, full range of motion, nontender. Neurological: CN II-XII intact, intact motor, intact sensation. Psychiatric: normal mood. Skin: Right lower extremity cellulitis, improving, onychomycosis. Constitutional Vitals: Vital Signs Temp Pulse Resp BP Pulse Ox O2 Del Method O2 Flow Rate 97.5 F 46 L 18 124/69 100 Room Air 98 05/15/22 07:20 05/15/22 07:20 05/15/22 07:20 05/15/22 07:20 05/15/22 07:20 05/15/22 07:20 05/13/22 07:48 Period Temp Pulse Resp BP Sys/Spence Pulse Ox O2 Del Method O2 Flow Rate Last 24 Hr 97.3 F-97.9 F 46-55 16-18 124-139/66-98 97-100 Room Air-Room Air Intake and Output 05/14/22 05/15/22 05/15/22 19:59 03:59 11:59 Intake Total 1520 340 Output Total 1550 2850 1100 Balance -30 -2510 -1100 Weight 126.212 kg 123.785 kg Intake & Output: Intake & Output 05/14/22 05/15/22 05/15/22 19:59 03:59 11:59 Intake Total 1520 340 Output Total 1550 2850 1100 Balance -30 -2510 -1100 Weight 126.212 kg 123.785 kg Intake: Oral 1520 340 Output: Urine Catheter Amount 225 Void Amount 0609 5700 0489 Other: Meal Breakfast Breakfast Percent of Meal Consumed 100% 100% Feeding Ability Independent Urine Appearance Clear Clear Clear Urine Color Yellow Yellow Yellow Urine Odor Normal Normal Normal Stool Size Large Stool Color Brown Bright Red Blood Stool Consistency Formed OBJ DATA Labs 05/08/22 06:23 05/15/22 05:41 Labs: Abnormal Lab Results 05/15/22 05/14/22 05:41 05:17 Chloride 95 L Carbon Dioxide 34 H BUN 39 H 37 H Creatinine 1.3 H 1.3 H Glucose 136 H Meds: Medications Acetaminophen (Acetaminophen 325 Mg Tablet) 650 mg PO Q6HP PRN; Protocol PRN Reason: Per Pain Protocol/Fever > 101 Hydrocodone Bitart/Acetaminophen (Hydrocodone/Apap 5/325mg Tablet) 1 tab PO Q4HP PRN PRN Reason: PAIN LEVEL 3-6 Last Admin: 05/14/22 22:15 Dose: 1 tab Albuterol/Ipratropium (Ipratropium/Albuterol 3 Ml Ampul.Neb) 3 ml NEB Q4HP PRN PRN Reason: Shortness Of Breath Amiodarone HCl (Amiodarone Hcl 200 Mg Tablet) 200 mg PO QDAY [facility] Last Admin: 05/15/22 09:15 Dose: 200 mg Apixaban (Apixaban 5 Mg Tablet) 5 mg PO BID [facility] Last Admin: 05/15/22 09:16 Dose: 5 mg Dextrose (Dextrose 50% 50 Ml Vial) 0 ml IV UD PRN PRN Reason: Per Sliding Scale Diagnostic Test (Pha) (Accu-Chek 1 Each Strip) 1 each FS ACHS [facility] Last Admin: 05/15/22 07:19 Dose: 1 each Docusate Sodium (Docusate Sodium 100 Mg Capsule) 100 mg PO BID [facility] Last Admin: 05/15/22 09:16 Dose: 100 mg Fenofibrate (Fenofibrate 43 Mg Capsule) 129 mg PO DAILY [facility] Last Admin: 05/15/22 09:15 Dose: 129 mg Fluconazole (Fluconazole 100 Mg Tablet) 200 mg PO Q7D [facility]; Protocol Last Admin: 05/13/22 14:55 Dose: 200 mg Furosemide (Furosemide 40 Mg/4 Ml Vial) 40 mg IV TID [facility] Last Admin: 05/15/22 09:09 Dose: 40 mg Glucose (Dextrose 31 Gm Oral.Susp) 15 gm PO PRN PRN PRN Reason: Hypoglycemia Potassium Chloride 40 meq/ (Dextrose) 520 mls @ 130 mls/hr IV UD PRN PRN Reason: Potassium < 3 Magnesium Sulfate (Magnesium Sulfate) 2 gm in 50 mls @ 50 mls/hr IV UD PRN PRN Reason: Magnesium </= 1.6 Ceftriaxone Sodium 2 gm/ (Dextrose) 50 mls @ 100 mls/hr IV DAILY [facility]; Protocol Last Admin: 05/15/22 09:26 Dose: 100 mls/hr Insulin Glargine (Insulin Glargine, Human 1 Unit/0.01 Ml) 35 unit SQ QAM [facility] Last Admin: 05/15/22 09:09 Dose: 35 unit Insulin Human Lispro (Insulin Lispro 1 Unit/0.01 Ml Unit) 0 unit SQ ACHS [facility]; Protocol Last Admin: 05/15/22 07:19 Dose: Not Given Lisinopril (Lisinopril 20 Mg Tablet) 20 mg PO QDAY [facility] Last Admin: 05/15/22 09:16 Dose: 20 mg Metoprolol Succinate (Metoprolol Succinate 50 Mg Tab.Xl.24h) 100 mg PO BID [facility] Last Admin: 05/15/22 09:14 Dose: Not Given Metoprolol Tartrate (Metoprolol Tartrate 5 Mg/5 Ml Vial) 5 mg IV Q2HP PRN PRN Reason: Tachyarrhythmias HR>110 Ondansetron HCl (Ondansetron 4 Mg/2 Ml Vial) 4 mg IV Q4HP PRN PRN Reason: Nausea And Vomiting Polyethylene Glycol (Polyethylene Glycol 3350 17 Gm Packet) 17 gm PO DAILYP PRN PRN Reason: Constipation Potassium Chloride (Potassium Chloride 20 Meq Tablet) 40 meq PO UD PRN PRN Reason: Potssium is 3-3.5 Potassium Chloride (Potassium Chloride 20 Meq Tablet) 40 meq PO UD PRN PRN Reason: Potassium < 3 Senna (Sennosides 1 Tablet) 2 tab PO DAILYP PRN PRN Reason: Constipation Last Admin: 05/10/22 20:37 Dose: 2 tab Sertraline HCl (Sertraline 50 Mg Tablet) 50 mg PO QHS [facility] Last Admin: 05/14/22 20:32 Dose: 50 mg Sodium Chloride (0.9 % Sodium Chloride 10 Ml Syringe) 10 ml IV Q8 [facility] Last Admin: 05/15/22 05:04 Dose: 10 ml Spironolactone (Spironolactone 25 Mg Tablet) 25 mg PO QDAY [facility] Last Admin: 05/15/22 09:16 Dose: 25 mg Tramadol HCl (Tramadol 50 Mg Tablet) 50 mg PO Q6HP PRN PRN Reason: Pain Last Admin: 05/14/22 23:43 Dose: 50 mg A/P Narrative A/P Narrative: Assessment: 71-year-old male with history of hypertension, diabetes mellitus, paroxysmal atrial fibrillation, heart failure with reduced ejection fraction, chronic kidney disease stage III, chronic anemia, chronic lower extremity wounds and cellulitis now admitted for a recurrent right lower extremity cellulitis. *RLE/foot recurrent cellulitis: -MRI no osteo -WC growing Strep agalactiae & Klebsiella *Volume overload *chronic LE wounds / venous stasis changes: *Onychomycosis *DM: A1c 8.0 *Obesity: bmi 37 *CKD III: *Anemia, chronic: *PAF: on amio/eliquis/bb *h/o systolic(40-45)/diastolic(II) CHF: from 2019 echo -on acei/lasix/aldactone *HTN: on acei/bb P: -IV Ceftriaxone while inpatient, discharge on Keflex to complete 14 days of antibiotic treatment. -Oral fluconazole 200 mg weekly for 52 weeks. -Lasix 40 mg IV TID, monitor renal function and volume status. -Metolazone 5 mg once today. -Wound cares. -cont amio/bb/acie -basal and ssi -PT/OT -ppx: Eliquis -Code: Limited with no intubation. -Disposition: Home with home health at discharge on Keflex to complete 14 days of antibiotic therapy, weekly fluconazole for onychomycosis, possibly higher dos e of oral Lasix. We will add Jardiance at discharge, it is not formulary while inpatient. Follow-up with the wound care clinic after discharge. Plan of Treatment: Plan: Continue the patient on ceftriaxone and switch to p.o. Keflex for 14 days total antibiotic therapy when ready for discharge More aggressive diuresis Compression stocking Fluconazole 200 mg p.o. weekly for 52 weeks Time Spent With Patient Time: Total time spent is greater than 50% in coordination of care (as documented) at patient's floor/unit and/or counseling patient: QUALITY Stroke Symptom Onset Unknown: No VTE Deep Vein Thrombosis/Pulmonary Embolism Present on Admission: No
[2022-05-15] MEDS: traMADol 50 MG TABLET PO PRN (10:53)
[2022-05-15] MEDS: SERTRALINE 50 MG TABLET PO SCH (21:02)
[2022-05-16] MEDS: 0.9 % SODIUM CHLORIDE 10 ML SYRINGE IV SCH (07:45)
[2022-05-16] MEDS: INSULIN LISPRO 1 UNIT/0.01 ML UNIT SQ SCH ×2 (07:45→12:50)
[2022-05-16] MEDS ORDERED: FUROSEMIDE 40 MG TABLET PO SCH (08:00)
[2022-05-16 08:01] LABS: Albumin 3.7 gm/dL (3.2-5.2); Blood Urea Nitrogen 46 mg/dL (8-23); Calcium 10.3 mg/dL (8.6-10.4); Carbon Dioxide 35 mmol/L (22-30); Chloride 90 mmol/L (96-108); Glomerular Filtration Rate 46; Glucose 123 mg/dL (70-105); Phosphorous 3.8 mg/dL (2.5-4.5)
--- NOTE | 2022-05-16 08:30 | Discharge Summary ---
Discharge Provider Provider IMPORTANT FOLLOW-UP INFORMATION FOR PCP: Patient information: Note initiated : 05/16/22 at 8:28 am Service Date, if different from initiated Date: [] Patient: Ovidio Veloz 71 y/o M admitted on 05/09/22 for RLE Swelling/Redness/Weeping. Chief Complaint: [] Date of admission: 05/09/22 14:00 Discharge date: 05/16/22 Primary care physician: Serafin Sy MD Consults: 05/07/22 Consult to Physician [CONS] Stat Comment: Consulting Provider: Zeeshan Richards Reason For Exam: Physician to Consult 05/07/22 14:09 Consult to Physician [CONS] Routine Comment: Consulting Provider: Rebel Marte Reason For Exam: Physician to Consult 05/13/22 10:18 Consult to Physician [CONS] Routine Comment: Consulting Provider: Kamron Garnica - ID Reason For Exam: Physician to Consult COURSE Hospital Course Hospital course: Mr. Veloz is a 71 year old M With history of recurrent right foot infection and history of diabetes and obesity. Has history of chronic wounds. He was last admitted in November for several days for the same thing. Patient states his right foot gets bad then he gets better than he gets bad again. Patient dates about 3 days ago right foot and ankle started swelling becoming increasingly red and tender. He has had some drainage generalized over it which is clear yellow. Patient says he feels little lightheaded when he gets up moves around. Denies any fevers or chills. Will obtain MRI to rule out osteo of the foot. Contact wound care team. 2/3 MRI and no osteo or abscess noted. Pending further treatment recommendations by wound care team Dr. Marte. Patient says foot similar yesterday as far as swelling tenderness. No other acute events or new complaints. 2/ Wound care per Dr. Thakkar Patient feels his leg is improving slowly. CRP elevated. Monitor. 2 No overnight event or new complaints. Follow-up inflammatory markers in the a.m. Continue recs per wound care. Wound cultures with Klebsiella and strep agalactiae. 2/ Patient seems to be doing well from a flexion standpoint. Seen by wound care, wound doing well. Will need to eval by PT to determine where he can discharge to. Case management to work with him as well. Needs close follow-up given his recurrent infection. CRP improving. 05/12 No overnight event or new complaints. Patient doing well. Awaiting placement decisions [facility] facility. 05/13 Discussed antimicrobial management with infectious disease, ID recommended Keflex for 10 days as well as fluconazole for onychomycosis. Lasix 40 mg IV today and tomorrow for lower extremity edema then resume home Lasix at higher doses. Case management working on placement. 05/14 Increase Lasix frequency dosing to Lasix 40 mg IV 3 times daily. Will add a dose of metolazone today. Recheck transthoracic echocardiogram, last available echo was in 2019. 05/15 No significant events overnight, this morning the patient's heart rate was in the upper 40s so we will hold the morning dose of metoprolol succinate. The patient feels like his ambulation has improved and no longer wants to go to low intensity rehab. He says he wants to go home at discharge. We will continue d iuresis for today, potentially discharge to home tomorrow with home health. Transthoracic echocardiogram showed an LVEF of 35%, in March 2020 the LVEF was 40 to 45%. There is also moderate left ventricular global hypokinesis, the right ventricle is moderate to severely dilated and the right ventricular systolic function appears mildly reduced. 05/16 Creatinine has increased slightly to 1.5, BUN increased as well. Discontinued IV Lasix and transitioned to oral Lasix 40 mg twice daily which is modestly increased from his prior dose of Lasix 40 mg in the morning and 20 mg in the afternoon. Transitioned from ceftriaxone to Keflex at discharge to complete 14 days of antibiotic treatment for cellulitis. Also discharged on weekly fluconazole 200 mg weekly per IDs recommendation. Added Jardiance 10 mg daily at discharge to improve mortality from heart failure and reduce the risk of hospitalization. I advised the patient to continue to use compression stockings to reduce the edema in his lower extremities which increases his risk for recurrent cellulitis. The patient was discharged to home with home health as he declined low intensity rehab. The patient will follow-up with wound care and his primary care provider. Physical exam Head: Atraumatic, normal inspection. Eyes: normal appearance, no scleral icterus. Neck: full ROM Respiratory: no respiratory distress. Cardiovascular: normal rate and rhythm, S1, S2. GI/Abdominal: soft, nontender, no guarding. Extremities: Improved bilateral lower extremity edema, full range of motion, nontender. Neurological: CN II-XII intact, intact motor, intact sensation. Psychiatric: normal mood. Skin: Right lower extremity cellulitis, improving, onychomycosis. Discharge diagnosis: Cellulitis of right foot Secondary discharge diagnosis: Acute on chronic systolic and diastolic heart failure Onychomycosis Chronic kidney disease stage III Time Spent with Patient Time attestation: Total time spent providing and/or coordinating discharge services: Time spent: Greater than 30 minutes EXAM Constitutional Vitals: Temp Pulse Resp BP Pulse Ox O2 Del Method O2 Flow Rate 97.9 F 57 L 16 124/73 96 Room Air 98 05/16/22 04:00 05/16/22 04:00 05/16/22 04:00 05/16/22 04:00 05/16/22 04:00 05/16/22 04:00 05/13/22 07:48 Discharge Data Data Completed and Pending Labs on day of discharge: Labs from last 24 hours 05/16/22 06:24 Sodium 136 Potassium 3.8 Chloride 90 L Carbon Dioxide 35 H Anion Gap 11.0 BUN 46 H Creatinine 1.5 H GFR Calculation 46 Glucose 123 H Calcium 10.3 Phosphorus 3.8 Albumin 3.7 Discharge Plan Patient/Caregiver Discharge Instructions Activity: increase activity as tolerated Diet: Consistent Carbohydrate Prescriptions: New fluconazole 200 mg tablet 200 mg PO Q7D 364 Days Qty: 52 0RF furosemide 40 mg Tablet 40 mg PO BIDD Qty: 60 3RF Jardiance 10 mg tablet 10 mg PO QAM Qty: 60 5RF cephalexin 500 mg capsule 500 mg PO QID 7 Days Qty: 28 0RF Continued (DME) pen needle, diabetic 32 gauge x 5/32" needle See Rx Instructions .ROUTE .MEDSUPPLY Qty: 100 3RF Rx Instructions: Use with levemir once daily Levemir FlexTouch U-100 Insuln 100 unit/mL (3 mL) insulin pen 35 unit SUB-Q QAM Qty: 30 1RF fenofibrate 160 mg tablet 160 mg tablet 160 mg PO QDAY Qty: 90 1RF lisinopril 20 mg tablet 20 mg PO QDAY Qty: 90 1RF amiodarone 200 mg tablet 200 mg PO QDAY Qty: 90 1RF metoprolol succinate [Toprol XL] 100 mg tablet extended release 24 hr 100 mg PO BID Qty: 180 1RF (DME) Accu-Chek SmartView Test Strip Strip See Dose Instructions .ROUTE .MEDSUPPLY Qty: 100 3RF Dose Instruction: As directed Rx Instructions: Use to test BG once daily spironolactone [Aldactone] 25 mg tablet 25 mg PO QDAY Qty: 90 1RF metformin 1,000 mg tablet 1,000 mg PO BID Qty: 180 1RF glipizide 10 mg tablet 10 mg PO TID Qty: 270 1RF sertraline 50 mg tablet 50 mg PO QHS Qty: 30 1RF Januvia 100 mg tablet 100 mg PO QDAY Qty: 90 1RF omega-3 fatty acids [Fish Oil Concentrate] 1,000 mg capsule 1,000 mg PO QDAY apixaban [Eliquis] 5 mg tablet 5 mg PO BID tramadol 50 mg tablet 50 mg PO Q6H PRN (Reason: pain) Qty: 60 0RF (DME) Accu-Chek SmartView Test Strip Strip MISCELLANEOUS QDAY Discontinued furosemide [Lasix] 40 mg tablet 40 mg PO .COMPLEX Qty: 135 3RF Rx Instructions: 40 mg (1 tablet) PO each morning and 20mg (1/2 tablet) each afternoon at 2:00 p.m. Other Ambulatory Orders: Wound Care Instructions (CONT) Location: None Selected Ordered By: Vcik Pires Follow Up Plan Follow up with: Rebel Marte MD [Physician] - (Follow up in [facility] in 5-7 days for right lower leg cellulits and left lower leg bulla.) Serafin Sy MD [Primary Care Provider] - Patient Disposition: Home Health Service Plan of Treatment: Plan: Continue the patient on ceftriaxone and switch to p.o. Keflex for 14 days total antibiotic therapy when ready for discharge More aggressive diuresis Compression stocking Fluconazole 200 mg p.o. weekly for 52 weeks Prognosis: Undetermined Overall status at discharge: patient is progressing back to baseline Discharge Orders: Discharge Order (Routine); Ordered 05/16/22 Ordered By: Vick Pires QUALITY VTE Deep Vein Thrombosis/Pulmonary Embolism Present on Admission: No
[2022-05-16] MEDS: APIXABAN 5 MG TABLET PO SCH (09:06)
[2022-05-16] MEDS: SPIRONOLACTONE 25 MG TABLET PO SCH (09:06)
[2022-05-16] MEDS: DOCUSATE SODIUM 100 MG CAPSULE PO SCH (09:06)
[2022-05-16] MEDS: FENOFIBRATE 43 MG CAPSULE PO SCH (09:07)
[2022-05-16] MEDS: INSULIN GLARGINE, HUMAN 1 UNIT/0.01 ML SQ SCH (09:07)
[2022-05-16] MEDS: METOPROLOL SUCCINATE 50 MG TAB.XL.24H PO SCH (09:08)
[2022-05-16] MEDS: LISINOPRIL 20 MG TABLET PO SCH (09:12)
[2022-05-16] MEDS: AMIODARONE HCL 200 MG TABLET PO SCH (09:12)
[2022-05-16] MEDS: cefTRIAXone 2 GM in DEXTROSE 5% IN WATER 50 ML IV SCH (11:28)
== END 2022-05-16 14:45 | disposition home health service (06) | DRG 602 ==
LOC: ED 11:04 → MEDSUR 11:04 → UNDODISIN 05-15 17:05
PROVIDERS: ADMIT Internal Medicine; ATTEND Internal Medicine

== ENCOUNTER 2022-08-24 15:21 | Observation (INO) ==
--- NOTE | 2022-08-24 16:51 | Emergency Department Note ---
HPI General Chief complaint: Extremity Problem,Nontraumatic Stated complaint: maggots in wounds on legs Time Seen by Provider: 08/24/22 16:49 Source: patient Mode of arrival: ambulatory Limitations: altered mental status History of Present Illness HPI Narrative: Narrative: This 72-year-old insulin-dependent diabetic presents complaint of pain to his bilateral legs. He is been semitreating them for some time but lives by himself has no supervision cannot tell me when the last time he checked a blood sugar was because he said that he lost something to do with his glucometer and has not tried to get anything back but he thinks has been since over March. He gives himself insulin once a day and denies any fever sweats or chills nausea vomiting or diarrhea urinary tract symptoms headache and he denies falling. Patient was brought via EMS and they stated that the premises was a definite health hazard - there is animal feces everywhere as well as the patient's living conditions were very slovenly. EQ, the patients lower legs were covered with maggots. The patient lives by himself and while he has family members, state that they won't come over....such that he has no one to care for him. Related Data Home Medications Medication Instructions Recorded Confirmed apixaban 5 mg tablet (Eliquis) 5 mg PO BID 02/16/18 08/26/22 omega-3 fatty acids 1,000 mg 1,000 mg PO QDAY 03/22/18 07/07/22 capsule (Fish Oil Concentrate) blood sugar diagnostic (Accu-Chek 05/07/22 07/07/22 SmartView Test Strips) Previous Rx's Medication Instructions Recorded pen needle, diabetic 32 gauge x #100 ea 10/24/19" insulin detemir U-100 100 unit/mL 35 unit (0.35 mL) subcut QAM #30 mL 04/15/20 (3 mL) subcutaneous pen (Levemir FlexTouch U-100 Insulin) amiodarone 200 mg tablet 200 mg PO QDAY #90 tabs 09/11/21 fenofibrate 160 mg tablet 160 mg PO QDAY #90 tabs 09/11/21 lisinopril 20 mg tablet 20 mg PO QDAY #90 tabs 09/11/21 metoprolol succinate 100 mg 100 mg PO BID #180 tabs 11/11/21 tablet,extended release 24 hr (Toprol XL) blood sugar diagnostic (Accu-Chek #100 ea 12/18/21 SmartView Test Strips) metformin 1,000 mg tablet 1,000 mg PO BID #180 tabs 12/23/21 spironolactone 25 mg tablet 25 mg PO QDAY #90 tabs 12/23/21 (Aldactone) glipizide 10 mg tablet 10 mg PO TID #270 tabs 03/03/22 sertraline 50 mg tablet 50 mg PO QHS #30 tabs 03/19/22 sitagliptin phosphate 100 mg 100 mg PO QDAY #90 tabs 03/25/22 tablet (Januvia) compr.stocking,knee,long,x-lrg #12 ea 05/16/22 empagliflozin 10 mg tablet 10 mg PO QAM #60 tabs 05/16/22 (Jardiance) fluconazole 200 mg tablet 200 mg PO Q7D 52 weeks #52 tabs 05/16/22 furosemide 40 mg tablet 40 mg PO BIDD #60 tabs 05/16/22 tramadol 50 mg tablet 50 mg PO Q6H PRN pain #30 tabs 08/27/22 Allergies Allergy/AdvReac Type Severity Reaction Status Date / Time No Known Drug Allergies Allergy Verified 08/24/22 22:01 Review of Systems ROS ROS Narrative: Narrative: All systems ED: reviewed and negative except as stated. PFSH Narrative Patient History Narrative: Narrative: Medical/Surgical/Family History All Active Problems Stage 1 acute kidney injury (Acute) Cellulitis of right leg (Acute) CHF exacerbation (Acute) Cellulitis (Acute) Diabetes mellitus, insulin dependent (IDDM), uncontrolled (Acute) Unable to care for self (Acute) Lower extremity edema (Acute) Cellulitis (Acute) Head injury (Acute) Cellulitis of leg, right (Acute) Cellulitis of leg, right (Acute) Lower extremity ulceration (Acute) Cellulitis (Acute) Venous insufficiency (Acute) Frequent falls (Acute) Blunt head trauma (Acute) Foreign body of scalp (Acute) Lower extremity weakness (Acute) Pediculosis (Acute) Depression (Acute) BPH associated with nocturia (Acute) Lower extremity ulceration (Acute) Chronic pain (Acute) Annual physical exam (Acute) Medicare annual wellness visit, initial (Acute) Community acquired pneumonia (Acute) Congestive heart failure (Acute) Chronic kidney disease (Acute) Atrial fibrillation (Chronic) History of tonsillectomy (Acute) History of open reduction and internal fixation (ORIF) procedure (Acute) History of lumbosacral spine surgery (Acute) History of knee replacement (Acute) History of adenoidectomy (Acute) Reactive airway disease (Acute) Obesity (Acute) Neurodermatitis (Acute) Hypertension, essential (Chronic) Hyperlipidemia (Acute) Type 2 diabetes mellitus (Chronic) Dermatophytosis of groin (Acute) Cough (Acute) Colonic benign neoplasm (Acute) Ankle fracture (Acute) Medical History Ankle fracture Closed, R Annual physical exam BPH associated with nocturia Chronic pain Colonic benign neoplasm Cough Depression Dermatophytosis of groin 08/06/2014 Foreign body of scalp Hyperlipidemia Hypertension, essential 50s Lower extremity weakness Medicare annual wellness visit, initial Neurodermatitis 08/06/2014 Obesity Pediculosis Reactive airway disease Type 2 diabetes mellitus diagnosed in his 50s Surgical History History of adenoidectomy History of knee replacement left knee History of lumbosacral spine surgery decompression History of open reduction and internal fixation (ORIF) procedure Right ankle History of tonsillectomy Family History Mother , at 80 plus old age Atherosclerosis of coronary artery Essential hypertension Father , at 72 Malignant neoplasm of lung Social History Smoking Status: Former smoker Alcohol Intake Frequency: holiday/special occasion only Substance Use: does not use Exam Narrative Narrative: Narrative: General: Patient is responsive to speech however he is somewhat confused answers. GCS equals 15. Lungs: Clear to auscultation equal bilaterally CV: Regular rate and rhythm without murmurs clicks rubs or gallops abdomen: Positive bowel sounds (obese) nontender. Periphery: Erythema and swelling of both legs to mid calf on down the right leg has a grade 3 ulcer down to the subcutaneous tissue and there is a fair amount of swelling around both lower legs. There is no lymphangitic streaks. General Limitations: altered mental status Course Course Course Narrative: Blood work showed. Urine showed. Patient was placed on Levaquin drip and given some IV fluids while lab work was obtained. Patient is unable to care for himself despite protest to the contrary. Consult with home health care was made and they are trying to find him a placement. He has Medicare advantage which they state is very slow process. Vital Signs Vital signs: Vital Signs Temperature 97.2 F 08/24/22 15:28 Pulse Rate 78 08/24/22 15:28 Respiratory Rate 16 08/24/22 15:28 Blood Pressure 118/73 08/24/22 15:28 Pulse Oximetry (%) 97 08/24/22 15:28 Oxygen Delivery Method Room Air 08/24/22 15:28 Temperature 97.1 F 08/27/22 12:00 Pulse Rate 69 08/27/22 12:00 Respiratory Rate 22 08/27/22 12:00 Blood Pressure 122/61 08/27/22 12:00 Pulse Oximetry (%) 99 08/27/22 12:00 Oxygen Delivery Method Room Air 08/27/22 12:00 MDM MDM Narrative Medical decision making narrative: Narrative: Lab Data 08/27/22 06:00 08/27/22 06:00 Labs: Lab Results 08/24/22 08/24/22 08/24/22 Range/Units 17:00 17:00 17:00 WBC 10.3 (4.5-11.0) K/mcL RBC 5.34 (4.63-6.08) M/mcL Hgb 13.9 (13.7-17.5) g/dL Hct 44.4 (40.1-51.0) % POC Hct (41-55) MCV 83.1 (80.0-100.0) fL MCH 26.0 (26.0-34.0) pg MCHC 31.3 (31.0-36.0) g/dL RDW 19.2 H (11.5-14.5) % Plt Count 359 (140-440) K/mcL MPV 10.1 (8.8-12.5) fL Immature Gran % (Auto) 0.3 (0.0-0.5) % Neut % (Auto) 83.9 H (38.0-78.0) % Lymph % (Auto) 6.6 L (15.5-49.0) % Cottle % (Auto) 6.8 (1.0-12.0) % Eos % (Auto) 1.6 (0.0-7.0) % Baso % (Auto) 0.8 (0.0-2.0) % Lymph # (Auto) 0.68 L (1.50-4.80) K/mcL Cottle # (Auto) 0.70 (0.10-0.90) K/mcL Eos # (Auto) 0.16 (0.00-0.70) K/mcL Baso # (Auto) 0.08 (0.00-0.30) K/mcL Immature Gran # 0.03 (0.00-0.05) K/mcl Absolute Neutrophils 8.63 H (1.80-8.00) K/mcL POC PT (11.9-14.5) POC INR (0.8-1.2) POC Sodium (133-145) POC Potassium (3.3-5.1) POC Chloride (96-108) POC Total CO2 (22-30) POC BUN (6-20) POC Creatinine (0.6-1.2) POC Glucose (70-105) Hemoglobin A1c 10.2 H (4.0-6.0) % Hgb Estim Average Glucose 246 mg/dL POC WB Ioniz Calcium (1.16-1.32) Procalcitonin 0.07 (<0.10) ng/mL 08/24/22 08/24/22 Range/Units 17:05 17:13 WBC (4.5-11.0) K/mcL RBC (4.63-6.08) M/mcL Hgb (13.7-17.5) g/dL Hct (40.1-51.0) % POC Hct 48.0 (41-55) MCV (80.0-100.0) fL MCH (26.0-34.0) pg MCHC (31.0-36.0) g/dL RDW (11.5-14.5) % Plt Count (140-440) K/mcL MPV (8.8-12.5) fL Immature Gran % (Auto) (0.0-0.5) % Neut % (Auto) (38.0-78.0) % Lymph % (Auto) (15.5-49.0) % Cottle % (Auto) (1.0-12.0) % Eos % (Auto) (0.0-7.0) % Baso % (Auto) (0.0-2.0) % Lymph # (Auto) (1.50-4.80) K/mcL Cottle # (Auto) (0.10-0.90) K/mcL Eos # (Auto) (0.00-0.70) K/mcL Baso # (Auto) (0.00-0.30) K/mcL Immature Gran # (0.00-0.05) K/mcl Absolute Neutrophils (1.80-8.00) K/mcL POC PT 20.4 H (11.9-14.5) POC INR 1.7 H (0.8-1.2) POC Sodium 140 (133-145) POC Potassium 4.5 (3.3-5.1) POC Chloride 102 (96-108) POC Total CO2 27.0 (22-30) POC BUN 48 H (6-20) POC Creatinine 1.5 H (0.6-1.2) POC Glucose 195 H (70-105) Hemoglobin A1c (4.0-6.0) % Hgb Estim Average Glucose mg/dL POC WB Ioniz Calcium 1.16 (1.16-1.32) Procalcitonin (<0.10) ng/mL Discharge Plan Patient/Caregiver Discharge Instructions Pt seen by [employer] P[employer]ENGER AGENT/PA only: No Clinical Impression: Cellulitis, Diabetes mellitus, insulin dependent (IDDM), uncontrolled, Unable to care for self Activity: increase activity as tolerated Patient Disposition: Xfer As Inpt ([facility]) Condition: Fair Discharge Date/Time: 08/24/22 21:35
[2022-08-24 17:16] LABS: POC Calcium, Ionized 1.16 (1.16-1.32); POC Creatinine 1.5 (0.6-1.2); POC Potassium 4.5 (3.3-5.1)
[2022-08-24 17:16] LABS: POC INR 1.7 (0.8-1.2); POC Pro Time 20.4 (11.9-14.5)
[2022-08-24] MEDS ORDERED: LEVOFLOXACIN 750 MG/150 ML BAG IV SCH (17:45)
[2022-08-24 18:08] LABS: Basophils # (Auto) 0.08 K/mcL (0.00-0.30); Basophils % (Auto) 0.8 % (0.0-2.0); Eosinophils # (Auto) 0.16 K/mcL (0.00-0.70); Eosinophils % (Auto) 1.6 % (0.0-7.0); Hematocrit 44.4 % (40.1-51.0); Hemoglobin 13.9 g/dL (13.7-17.5); Lymphocytes # (Auto) 0.68 K/mcL (1.50-4.80); Lymphocytes % (Auto) 6.6 % (15.5-49.0); Mean Cell Volume 83.1 fL (80.0-100.0); Mean Corpuscular HGB Conc 31.3 g/dL (31.0-36.0); Mean Platelet Volume 10.1 fL (8.8-12.5); Monocytes % (Auto) 6.8 % (1.0-12.0); Neutrophils % (Auto) 83.9 % (38.0-78.0); Platelet Count 359 K/mcL (140-440); RBC 5.34 M/mcL (4.63-6.08); Red Cell Distribution Width 19.2 % (11.5-14.5); WBC 10.3 K/mcL (4.5-11.0)
[2022-08-24 18:22] LABS: Estimated Average Glucose(eAG) 246 mg/dL; Hemoglobin A1C 10.2 % Hgb (4.0-6.0)
--- NOTE | 2022-08-24 19:59 | Internal Med History&Physical ---
HPI History of Present Illness Patient information: Note initiated : 08/24/22 at 7:58 pm Service Date, if different from initiated Date: [] Patient: Ovidio Veloz a 72 y/o M admitted on for maggots in wounds on legs. Chief Complaint: [right leg swelling and pain] Chief complaint: right leg swelling and pain History of present illness: Mr. Veloz is a 72 year old M history of type 2 diabetes mellitus, depression, atrial fibrillation, essential hypertension, dyslipidemia, presenting with right leg swelling and pain. He was admitted in our facility back in May of this year for the same problems. He has noticed maggots in the wounds on his right lower leg so he came to our ED for further evaluations. He had a prescription of Keflex but it was questionable whether he actually used or not. Wound culture from previous visit was positive for group B strep as well as Klebsiella oxytoca. He is commenting of some swelling and pain of his right lower leg. He denies any fever chills or diaphoresis. Vital signs within normal limits. Labs significant for lack of leukocytosis with WBC 10.3. Lactic acid pending. Procalcitonin pending. Admission request is called for right leg cellulitis. Constitutional Constitutional: Absent chills, excessive sweating, fatigue, fever(s) or weakness EENT Eyes: Absent blurry vision, change in vision, loss of vision or other visual disturbances Ears: Absent decreased hearing or tinnitus Nose, mouth and throat: Absent abnormal hearing, dry mouth, headache(s), nasal congestion or sore throat Cardiovascular Cardiovascular: Absent chest pain, chest pain at rest, edema, irregular heart rhythm or palpatations Respiratory Respiratory: Absent cough, dyspnea or wheezing Gastrointestinal Gastrointestinal: Absent abdominal pain, constipation, diarrhea, nausea or vomiting Musculoskeletal Musculoskeletal: Absent back pain, deformity, limited range of motion, muscle cramps, muscle weakness or numbness Integumentary Integumentary: Present as per HPI, lesions, skin pain, swelling and wounds; Absent rash Neurological Neurological: Absent focal weakness, headache(s) or numbness Psychiatric Psychiatric: Absent anxiety, depression or hallucinations PFSH PFSH All Active Problems (Updated 08/24/22 @ 20:06 by Zana Frazier MD) Stage 1 acute kidney injury (Acute) Cellulitis of right leg (Acute) CHF exacerbation (Acute) Cellulitis (Acute) Diabetes mellitus, insulin dependent (IDDM), uncontrolled (Acute) Unable to care for self (Acute) Lower extremity edema (Acute) Cellulitis (Acute) Head injury (Acute) Cellulitis of leg, right (Acute) Cellulitis of leg, right (Acute) Lower extremity ulceration (Acute) Cellulitis (Acute) Venous insufficiency (Acute) Frequent falls (Acute) Blunt head trauma (Acute) Foreign body of scalp (Acute) Lower extremity weakness (Acute) Pediculosis (Acute) Depression (Acute) BPH associated with nocturia (Acute) Lower extremity ulceration (Acute) Chronic pain (Acute) Annual physical exam (Acute) Medicare annual wellness visit, initial (Acute) Community acquired pneumonia (Acute) Congestive heart failure (Acute) Chronic kidney disease (Acute) Atrial fibrillation (Chronic) History of tonsillectomy (Acute) History of open reduction and internal fixation (ORIF) procedure (Acute) History of lumbosacral spine surgery (Acute) History of knee replacement (Acute) History of adenoidectomy (Acute) Reactive airway disease (Acute) Obesity (Acute) Neurodermatitis (Acute) Hypertension, essential (Chronic) Hyperlipidemia (Acute) Type 2 diabetes mellitus (Chronic) Dermatophytosis of groin (Acute) Cough (Acute) Colonic benign neoplasm (Acute) Ankle fracture (Acute) Medical History Ankle fracture Closed, R Annual physical exam BPH associated with nocturia Chronic pain Colonic benign neoplasm Cough Depression Dermatophytosis of groin 08/06/2014 Foreign body of scalp Hyperlipidemia Hypertension, essential 50s Lower extremity weakness Medicare annual wellness visit, initial Neurodermatitis 08/06/2014 Obesity Pediculosis Reactive airway disease Type 2 diabetes mellitus diagnosed in his 50s Surgical History History of adenoidectomy History of knee replacement left knee History of lumbosacral spine surgery decompression History of open reduction and internal fixation (ORIF) procedure Right ankle History of tonsillectomy Family History Mother , at 80 plus old age Atherosclerosis of coronary artery Essential hypertension Father , at 72 Malignant neoplasm of lung Social History marital status: education level: high school occupation: Transportation smoking status: Former smoker alcohol intake frequency: holiday/special occasion only substance use type: does not use additional history: chewing tobacco since age 13 MEDS/ALLERGIES Home Medications and Allergies Home Medications Medication Instructions Recorded Confirmed Type apixaban 5 mg tablet (Eliquis) 5 mg PO BID 02/16/18 07/07/22 History omega-3 fatty acids 1,000 mg 1,000 mg PO QDAY 03/22/18 07/07/22 History capsule (Fish Oil Concentrate) pen needle, diabetic 32 gauge x #100 ea 10/24/19 07/07/22 Rx " insulin detemir U-100 100 unit/mL 35 unit (0.35 mL) subcut QAM #30 mL 04/15/20 07/07/22 Rx (3 mL) subcutaneous pen (Levemir FlexTouch U-100 Insulin) amiodarone 200 mg tablet 200 mg PO QDAY #90 tabs 09/11/21 07/07/22 Rx fenofibrate 160 mg tablet 160 mg PO QDAY #90 tabs 09/11/21 07/07/22 Rx lisinopril 20 mg tablet 20 mg PO QDAY #90 tabs 09/11/21 07/07/22 Rx metoprolol succinate 100 mg 100 mg PO BID #180 tabs 11/11/21 07/07/22 Rx tablet,extended release 24 hr (Toprol XL) blood sugar diagnostic (Accu-Chek #100 ea 12/18/21 07/07/22 Rx SmartView Test Strips) metformin 1,000 mg tablet 1,000 mg PO BID #180 tabs 12/23/21 07/07/22 Rx spironolactone 25 mg tablet 25 mg PO QDAY #90 tabs 12/23/21 07/07/22 Rx (Aldactone) glipizide 10 mg tablet 10 mg PO TID #270 tabs 03/03/22 07/07/22 Rx sertraline 50 mg tablet 50 mg PO QHS #30 tabs 03/19/22 07/07/22 Rx sitagliptin phosphate 100 mg 100 mg PO QDAY #90 tabs 03/25/22 07/07/22 Rx tablet (Januvia) tramadol 50 mg tablet 50 mg PO Q6H PRN pain #60 tabs 03/25/22 07/07/22 Rx blood sugar diagnostic (Accu-Chek 05/07/22 07/07/22 History SmartView Test Strips) compr.stocking,knee,long,x-lrg #12 ea 05/16/22 07/07/22 Rx empagliflozin 10 mg tablet 10 mg PO QAM #60 tabs 05/16/22 07/07/22 Rx (Jardiance) fluconazole 200 mg tablet 200 mg PO Q7D 52 weeks #52 tabs 05/16/22 07/07/22 Rx furosemide 40 mg tablet 40 mg PO BIDD #60 tabs 05/16/22 07/07/22 Rx cephalexin 500 mg capsule 500 mg PO TID 10 days #30 caps 08/17/22 Rx Allergies Allergy/AdvReac Type Severity Reaction Status Date / Time No Known Drug Allergies Allergy Verified 07/07/22 10:25 EXAM Constitutional Vitals: Temp Pulse Resp BP Pulse Ox O2 Del Method 36.2 C 54 L 16 135/76 97 Room Air 08/24/22 15:28 08/24/22 19:17 08/24/22 15:28 08/24/22 19:17 08/24/22 15:28 08/24/22 15:28 General appearance: cooperative and no acute distress Head Head exam: Present atraumatic and normocephalic Eye Eye exam: Present EOMI and PERRL ENT ENT exam: Present mucous membranes moist, normal exam and normal external ear exam Neck Neck exam: Present normal inspection; Absent lymphadenopathy, tenderness or thyromegaly Respiratory Respiratory exam: Absent accessory muscle use, respiratory distress or wheezes Cardiovascular Cardiovascular exam: Present irregular rhythm; Absent JVD GI/Abdominal GI/Abdominal exam: Present normal bowel sounds and soft; Absent organomegaly or tenderness Rectal Rectal exam: Present deferred Extremities Exam Extremities exam: Present full ROM, normal capillary refill and tenderness; Absent normal inspection Additional comments: Erythema, swelling, tenderness to touch, and warmth to touch of right>left lower leg. I do not personally see any maggot in his wounds. Neurological Exam Neurological exam: Present alert, CN II-XII intact and oriented X3; Absent motor sensory deficit Psychiatric Psychiatric exam: Present normal affect and normal mood; Absent anxious or depressed Skin Additional comments: Erythema, swelling, tenderness to touch, and warmth to touch of right>left lower leg. I do not personally see any maggot in his wounds. DATA Data Completed and Pending Labs: Labs from last 24 hours 08/24/22 08/24/22 08/24/22 17:13 17:05 17:00 WBC RBC Hgb Hct POC Hct 48.0 MCV MCH MCHC RDW Plt Count MPV Immature Gran % (Auto) Neut % (Auto) Lymph % (Auto) [place] % (Auto) Eos % (Auto) Baso % (Auto) Lymph # (Auto) [place] # (Auto) Eos # (Auto) Baso # (Auto) Immature Gran # Absolute Neutrophils POC PT 20.4 H POC INR 1.7 H POC Sodium 140 POC Potassium 4.5 POC Chloride 102 POC Total CO2 27.0 POC BUN 48 H POC Creatinine 1.5 H POC Glucose 195 H Hemoglobin A1c Estim Average Glucose POC WB Ioniz Calcium 1.16 Procalcitonin Pending 08/24/22 08/24/22 17:00 17:00 WBC 10.3 RBC 5.34 Hgb 13.9 Hct 44.4 POC Hct MCV 83.1 MCH 26.0 MCHC 31.3 RDW 19.2 H Plt Count 359 MPV 10.1 Immature Gran % (Auto) 0.3 Neut % (Auto) 83.9 H Lymph % (Auto) 6.6 L [place] % (Auto) 6.8 Eos % (Auto) 1.6 Baso % (Auto) 0.8 Lymph # (Auto) 0.68 L [place] # (Auto) 0.70 Eos # (Auto) 0.16 Baso # (Auto) 0.08 Immature Gran # 0.03 Absolute Neutrophils 8.63 H POC PT POC INR POC Sodium POC Potassium POC Chloride POC Total CO2 POC BUN POC Creatinine POC Glucose Hemoglobin A1c 10.2 H Estim Average Glucose 246 POC WB Ioniz Calcium Procalcitonin A/P Assessment and plan (1) Cellulitis of right leg: Status: Acute (2) Atrial fibrillation: Status: Chronic (3) Type 2 diabetes mellitus: Status: Chronic Comment: diagnosed in his 50s (4) Depression: Status: Acute (5) Stage 1 acute kidney injury: Status: Acute (6) Hypertension, essential: Status: Chronic Comment: 50s (7) Hyperlipidemia: Status: Acute Sepsis Sepsis Identified: No Narrative A/P Narrative: Assessment and Plans: 1. 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 T2DM: HgA1c 10.2 Hold Metformin Jardiance Glipizide Januvia Insulin Lantus 35 unit qAM Insulin Lispro SSI AC HS Accu Check AC HS Hypoglycemia protocol Diabetic diet 3. Essential hypertension: Metoprolol succinate ER Amiodarone Hold Lisinopril due to JEFFREY Hold diuretics due to JEFFREY Hydralazine 10mg IV q4-6hr PRN SBP>=180 and/or DBP>=110mmHg 4. Stage 1 acute kidney injury: Avoid nephrotoxic agents NS@100cc/hr CMP in the morning to trend kidney functions 5. Atrial fibrillation: Metoprolol succinate ER Amiodarone Eliquis 6. Depression: Sertraline 7. Dyslipidemia: [place] 3 acid Fenofibrate GI ppx: not currently indicated DVT ppx: Eliquis Code status: Full Prognosis: guarded Disposition: inpatient med surg Time Spent With Patient Time: Total time spent is greater than 50% in coordination of care (as documented) at patient's floor/unit and/or counseling patient: Initial: Total time with patient: 55 - 74 minutes
[2022-08-24] MEDS ORDERED: VANCOMYCIN 1,500 MG in 0.9 % SODIUM CHLORIDE 500 ML IV SCH (21:00)
[2022-08-24] MEDS ORDERED: VANCOMYCIN PER PHARMACY IV ONE (21:40)
[2022-08-24] MEDS ORDERED: traZODone HCL 50 MG TABLET PO PRN (21:40)
[2022-08-24] MEDS ORDERED: cefTRIAXone 1 GM in DEXTROSE 5% IN WATER 50 ML IV SCH (21:40)
[2022-08-24] MEDS ORDERED: IPRATROPIUM/ALBUTEROL 3 ML AMPUL.NEB NEB PRN (21:40)
[2022-08-24] MEDS ORDERED: DEXTROSE 50% 50 ML VIAL IV PRN (21:40)
[2022-08-24] MEDS ORDERED: hydrALAZINE 20 MG/ML VIAL IV PRN (21:40)
[2022-08-24] MEDS ORDERED: DEXTROSE 31 GM ORAL.SUSP PO PRN (21:40)
[2022-08-24] MEDS ORDERED: ONDANSETRON 4 MG/2 ML VIAL IV PRN (21:40)
[2022-08-24] MEDS: 0.9 % SODIUM CHLORIDE 10 ML SYRINGE IV SCH (22:10)
[2022-08-24] MEDS: DOCUSATE SODIUM 100 MG CAPSULE PO SCH (22:13)
[2022-08-24] MEDS: SENNOSIDES 1 TABLET PO SCH (22:13)
[2022-08-24] MEDS: cefTRIAXone 1 GM VIAL IV SCH (22:16)
[2022-08-24] MEDS: 0.9 % SODIUM CHLORIDE 1,000 ML IV SCH (22:21)
[2022-08-24] MEDS: INSULIN LISPRO 1 UNIT/0.01 ML UNIT SQ SCH (22:30)
[2022-08-24] MEDS: morphine 4 MG/ML VIAL IV PRN (22:50)
--- NOTE | 2022-08-25 02:06 | XRay Report ---
CLINICAL INFORMATION: cellultitis COMPARISON: 08/17/2022 FINDINGS: Malunified old fracture of the mid fibular diaphysis and comminuted ununited old fracture of the medial malleolus seen as before. No evidence of osteomyelitis. Severe patellofemoral and medial tibiofemoral degeneration again noted. Diffuse soft tissue swelling noted compatible cellulitis. IMPRESSION: Diffuse soft tissue swelling about with cellulitis or edema. No evidence of osteomyelitis. Malunified old fracture mid fibular diaphysis and old ununited fracture medial malleolus. Severe patellofemoral and medial tibiofemoral degeneration. Interpreted and Authenticated by: Scott Turcios 08/25/22
--- NOTE | 2022-08-25 02:20 | XRay Report ---
CLINICAL INFORMATION: aspirating COMPARISON: 08/17/2022 FINDINGS: The heart has decreased in size and is now only mildly enlarged. Mediastinum and pulmonary vasculature have returned to normal. Minimal bibasilar airspace disease could represent developing infiltrate or atelectasis. No effusion IMPRESSION: Interval resolution of CHF. Possible developing bibasilar infiltrates Interpreted and Authenticated by: Scott Turcios 08/25/22
[2022-08-25] MEDS: morphine 4 MG/ML VIAL IV PRN ×2 (03:00→15:20)
[2022-08-25] MEDS: 0.9 % SODIUM CHLORIDE 10 ML SYRINGE IV SCH ×3 (06:06→20:38)
[2022-08-25 06:48] LABS: Basophils # (Auto) 0.07 K/mcL (0.00-0.30); Basophils % (Auto) 0.6 % (0.0-2.0); Eosinophils % (Auto) 0.8 % (0.0-7.0); Hematocrit 40.8 % (40.1-51.0); Hemoglobin 12.8 g/dL (13.7-17.5); Lymphocytes # (Auto) 0.65 K/mcL (1.50-4.80); Lymphocytes % (Auto) 5.2 % (15.5-49.0); Mean Cell Volume 82.8 fL (80.0-100.0); Mean Corpuscular HGB Conc 31.4 g/dL (31.0-36.0); Monocytes # (Auto) 1.13 K/mcL (0.10-0.90); Monocytes % (Auto) 9.1 % (1.0-12.0); Neutrophils % (Auto) 83.9 % (38.0-78.0); Platelet Count 368 K/mcL (140-440); RBC 4.93 M/mcL (4.63-6.08); Red Cell Distribution Width 18.8 % (11.5-14.5); WBC 12.5 K/mcL (4.5-11.0)
[2022-08-25 07:44] LABS: ALT/SGPT 11 U/L (<40); AST/SGOT 16 U/L (<40); Albumin 3.5 gm/dL (3.2-5.2); Albumin/Globulin Ratio 0.9 (1.0-2.3); Alkaline Phosphatase 83 U/L (39-117); Bilirubin,Total 0.8 mg/dL (0.1-1.0); Blood Urea Nitrogen 49 mg/dL (8-23); Carbon Dioxide 24 mmol/L (22-30); Chloride 102 mmol/L (96-108); Globulin 3.7 gm/dL (2.2-3.7); Glomerular Filtration Rate 54; Glucose 209 mg/dL (70-105)
[2022-08-25] MEDS: INSULIN LISPRO 1 UNIT/0.01 ML UNIT SQ SCH ×4 (07:47→20:36)
[2022-08-25] MEDS ORDERED: VANCOMYCIN PER PHARMACY IV SCH (08:45)
[2022-08-25] MEDS: DOCUSATE SODIUM 100 MG CAPSULE PO SCH ×2 (08:50→20:37)
[2022-08-25] MEDS ORDERED: VANCOMYCIN 1,750 MG in 0.9 % SODIUM CHLORIDE 500 ML IV SCH (09:00)
--- NOTE | 2022-08-25 09:24 | Internal Med Progress Note ---
SUBJECTIVE Subjective Patient information: Note initiated : 08/25/22 at 9:22 am Service Date, if different from initiated Date: [] Patient: Ovidio Veloz 72 y/o M admitted on 08/24/22 for maggots in wounds on legs. Chief Complaint: [] Interval history: Mr. Veloz is a 72 year old M history of type 2 diabetes mellitus, depression, atrial fibrillation, essential hypertension, dyslipidemia, presenting with right leg swelling and pain. He was admitted in our facility back in May of this year for the same problems. He has noticed maggots in the wounds on his right lower leg so he came to our ED for further evaluations. He had a prescription of Keflex but it was questionable whether he actually used or not. Wound culture from previous visit was positive for group B strep as well as Klebsiella oxytoca. He is commenting of some swelling and pain of his right lower leg. He denies any fever chills or diaphoresis. Vital signs within nor mal limits. Labs significant for lack of leukocytosis with WBC 10.3. Lactic acid pending. Procalcitonin pending. Admission request is called for right leg cellulitis. 08/25: Afebrile overnight. WBC 12.5. MRSA screening negative. Blood and wound culture no growth to date. Patient is complaining of 8/10 pain right lower leg, he cannot qualify the nature of the pain. He denies any fever, chills, or sweating. DC vancomycin due to negative MRSA screening. Continue Rocephin. Request wound care consultations, recommendation appreciated. Physical therapy evaluation and treatment. Work with wrapper caser for placement planning. Overall condition guarded. Stay in [facility]. Constitutional Vitals: Vital Signs Temp Pulse Resp BP Pulse Ox O2 Del Method 36.6 C 75 22 109/72 98 Room Air 08/25/22 07:57 08/25/22 07:57 08/25/22 07:57 08/25/22 07:57 08/25/22 07:57 08/25/22 07:57 Period Temp Pulse Resp BP Sys/Spence Pulse Ox O2 Del Method O2 Flow Rate Last 24 Hr 36.2 C-36.6 C 51-78 16-24 106-135/63-86 97-100 Room Air-Room Air Intake and Output 08/24/22 08/25/22 08/25/22 19:59 03:59 11:59 Intake Total 1650 1200 Output Total 300 175 Balance 1350 1025 Weight 117.48 kg 120.882 kg Intake & Output: Intake & Output 08/24/22 08/25/22 08/25/22 19:59 03:59 11:59 Intake Total 1650 1200 Output Total 300 175 Balance 1350 1025 Weight 117.48 kg 120.882 kg Intake: IV 500 1200 Sodium Chloride 0.9% 1,000 ml @ 1000 100 mls/hr IV .Q10H JOHNNY Rx#: [id number] Vancomycin 1,750 mg In Sodium 500 50 Chloride 0.9% 500 ml @ 250 mls/ hr IV Q12H JOHNNY Rx#:[id number] Oral 1150 Output: Void Amount 300 175 Other: Urine Appearance Clear Clear Urine Color Yellow Dark Yellow Urine Odor Strong # Voids 1 Head Head exam: Present atraumatic and normal inspection Eye Eye exam: Present normal appearance ENT ENT exam: Present mucous membranes moist, normal exam and normal external ear exam Neck Neck exam: Present normal inspection Respiratory Respiratory exam: Present normal respiratory exam Cardiovascular Cardiovascular exam: Present irregular rhythm GI/Abdominal GI/Abdominal exam: Present normal bowel sounds Extremities Exam Additional comments: Skin desquamation, erythema, warmth to touch, tenderness to touch, swelling of right lower leg. Back Exam Back exam: Present normal inspection Neurological Exam Neurological exam: Present alert and oriented X3 Skin Additional comments: Skin desquamation, erythema, warmth to touch, tenderness to touch, swelling of right lower leg. OBJ DATA Labs 08/25/22 05:21 08/25/22 05:20 Labs: Abnormal Lab Results 08/25/22 08/25/22 08/25/22 05:21 05:20 01:50 WBC 12.5 H Hgb 12.8 L RDW 18.8 H Neut % (Auto) 83.9 H Lymph % (Auto) 5.2 L Lymph # (Auto) 0.65 L [place] # (Auto) 1.13 H Absolute Neutrophils 10.48 H POC PT POC INR VBG Lactic Acid 2.3 H POC BUN BUN 49 H Creatinine 1.3 H POC Creatinine Glucose 209 H POC Glucose Hemoglobin A1c Albumin/Globulin Ratio 0.9 L 08/24/22 08/24/22 08/24/22 22:18 17:13 17:05 WBC Hgb RDW Neut % (Auto) Lymph % (Auto) Lymph # (Auto) [place] # (Auto) Absolute Neutrophils POC PT 20.4 H POC INR 1.7 H VBG Lactic Acid 2.5 H POC BUN 48 H BUN Creatinine POC Creatinine 1.5 H Glucose POC Glucose 195 H Hemoglobin A1c Albumin/Globulin Ratio 08/24/22 08/24/22 17:00 17:00 WBC Hgb RDW 19.2 H Neut % (Auto) 83.9 H Lymph % (Auto) 6.6 L Lymph # (Auto) 0.68 L [place] # (Auto) Absolute Neutrophils 8.63 H POC PT POC INR VBG Lactic Acid POC BUN BUN Creatinine POC Creatinine Glucose POC Glucose Hemoglobin A1c 10.2 H Albumin/Globulin Ratio Meds: Medications Acetaminophen (Acetaminophen 325 Mg Tablet) 650 mg PO Q6HP PRN; Protocol PRN Reason: Per Pain Protocol/Fever > 101 Albuterol/Ipratropium (Ipratropium/Albuterol 3 Ml Ampul.Neb) 3 ml NEB Q4HRT PRN PRN Reason: Wheezing Ceftriaxone Sodium (Ceftriaxone 1 Gm Vial) 1 gm IV Q24H [facility] Last Admin: 08/24/22 22:16 Dose: 1 gm Dextrose (Dextrose 50% 50 Ml Vial) 0 ml IV UD PRN PRN Reason: Per Sliding Scale Diagnostic Test (Pha) (Accu-Chek 1 Each Strip) 1 each FS [facility] Last Admin: 08/25/22 07:19 Dose: 1 each Docusate Sodium (Docusate Sodium 100 Mg Capsule) 100 mg PO BID [facility] Last Admin: 08/25/22 08:50 Dose: Not Given Glucose (Dextrose 31 Gm Oral.Susp) 15 gm PO PRN PRN PRN Reason: Hypoglycemia Hydralazine HCl (Hydralazine 20 Mg/Ml Vial) 10 mg IV Q4-6HP PRN PRN Reason: Hypertension Sodium Chloride (Sodium Chloride 0.9%) 1,000 mls @ 100 mls/hr IV .Q10H [facility] Last Infusion: 08/25/22 09:10 Dose: Infused Insulin Human Lispro (Insulin Lispro 1 Unit/0.01 Ml Unit) 0 unit SQ [facility]; Protocol Last Admin: 08/25/22 07:47 Dose: 2 units Morphine Sulfate (Morphine 4 Mg/Ml Vial) 2 mg IV Q4HP PRN; Protocol PRN Reason: Per Pain Protocol Last Admin: 08/25/22 03:00 Dose: 2 mg Ondansetron HCl (Ondansetron 4 Mg/2 Ml Vial) 4 mg IV Q6HP PRN PRN Reason: Nausea And Vomiting Senna (Sennosides 1 Tablet) 2 tab PO HS [facility] Last Admin: 08/24/22 22:13 Dose: 2 tab Sodium Chloride (0.9 % Sodium Chloride 10 Ml Syringe) 10 ml IV Q8 [facility] Last Admin: 08/25/22 06:06 Dose: Not Given Trazodone HCl (Trazodone Hcl 50 Mg Tablet) 50 mg PO HSP PRN PRN Reason: Insomnia A/P Assessment and plan (1) Cellulitis of right leg: Status: Acute (2) Atrial fibrillation: Status: Chronic (3) Type 2 diabetes mellitus: Status: Chronic Comment: diagnosed in his 50s (4) Depression: Status: Acute (5) Stage 1 acute kidney injury: Status: Acute (6) Hypertension, essential: Status: Chronic Comment: 50s (7) Hyperlipidemia: Status: Acute Narrative A/P Narrative: Assessment and Plans: 1. Right leg cellulitis: Inpatient med surg Wound care consult, recs. appreciated instrumentation manager for placement planning Physical therapy evaluation and treatment for placement planning Serial lactic acid Procalcitonin MRSA screening negative, discontinue Vancomycin Wound culture, no growth to date Blood culture, no growth to date cbc w/ auto diff in the morning to trend WBC Continue Rocephin NS@100cc/hr Tylenol Tramadol Morphine 2. T2DM: HgA1c 10.2 Hold Metformin Jardiance Glipizide Januvia Insulin Lantus 35 unit qAM Insulin Lispro SSI AC HS Accu Check AC HS Hypoglycemia protocol Diabetic diet 3. Essential hypertension: Metoprolol succinate ER Amiodarone Hold Lisinopril due to JEFFREY Hold diuretics due to JEFFREY Hydralazine 10mg IV q4-6hr PRN SBP>=180 and/or DBP>=110mmHg 4. Stage 1 acute kidney injury: Avoid nephrotoxic agents NS@100cc/hr CMP in the morning to trend kidney functions 5. Atrial fibrillation: Metoprolol succinate ER Amiodarone Eliquis 6. Depression: Sertraline 7. Dyslipidemia: [place] 3 acid Fenofibrate GI ppx: not currently indicated DVT ppx: Eliquis Code status: Full Prognosis: guarded Disposition: inpatient med surg Time Spent With Patient Time: Total time spent is greater than 50% in coordination of care (as documented) at patient's floor/unit and/or counseling patient: Subsequent: Total time with patient: 35 - 49 minutes QUALITY VTE Deep Vein Thrombosis/Pulmonary Embolism Present on Admission: No
[2022-08-25] MEDS: 0.9 % SODIUM CHLORIDE 1,000 ML IV SCH ×2 (11:06→23:14)
[2022-08-25] MEDS: cefTRIAXone 1 GM VIAL IV SCH (14:33)
--- NOTE | 2022-08-25 17:47 | General Surgery Consult Note ---
HPI Date of Consult Consult Date: 08/25/22 Requesting physician: Zana Frazier Primary Care Provider: Serafin Sy MD Family Provider: I saw Mr. VELOZ along with JACKELYN Marroquin RNinside tester Nurse. I know this gentleman, established patient at wound care clinic. Consult Narrative Patient Information: Note initiated : 08/25/22 at 5:33 pm Service Date, if different from initiated Date: [] Patient: Ovidio Veloz 72 y/o M admitted on 08/24/22 for maggots in wounds on legs. Chief Complaint: [] cc:: CC: Zana Frazier MD Constitutional Constitutional: Absent chills, excessive sweating, fatigue, fever(s) or weakness EENT Eyes: Absent blurry vision, change in vision, loss of vision or other visual disturbances Ears: Absent decreased hearing or tinnitus Nose, mouth and throat: Absent abnormal hearing, dry mouth, headache(s), nasal congestion or sore throat Cardiovascular Cardiovascular: Absent chest pain, chest pain at rest, edema, irregular heart rhythm or palpatations Respiratory Respiratory: Absent cough, dyspnea or wheezing Gastrointestinal Gastrointestinal: Absent abdominal pain, constipation, diarrhea, nausea or vomiting Musculoskeletal Musculoskeletal: Absent back pain, deformity, limited range of motion, muscle cramps, muscle weakness or numbness Integumentary Integumentary: Present as per HPI, lesions, skin pain, swelling, wounds and other (Poor personal hygiene and skin care. He cannot clean his legs or trim his thick deformed mycotic toenails,.); Absent rash Neurological Neurological: Absent focal weakness, headache(s) or numbness Psychiatric Psychiatric: Absent anxiety, depression or hallucinations Endocrine Endocrine: Present other (Diabetes. Neuropathy/) PFSH PFSH All Active Problems Stage 1 acute kidney injury (Acute) Cellulitis of right leg (Acute) CHF exacerbation (Acute) Cellulitis (Acute) Diabetes mellitus, insulin dependent (IDDM), uncontrolled (Acute) Unable to care for self (Acute) Lower extremity edema (Acute) Cellulitis (Acute) Head injury (Acute) Cellulitis of leg, right (Acute) Cellulitis of leg, right (Acute) Lower extremity ulceration (Acute) Cellulitis (Acute) Venous insufficiency (Acute) Frequent falls (Acute) Blunt head trauma (Acute) Foreign body of scalp (Acute) Lower extremity weakness (Acute) Pediculosis (Acute) Depression (Acute) BPH associated with nocturia (Acute) Lower extremity ulceration (Acute) Chronic pain (Acute) Annual physical exam (Acute) Medicare annual wellness visit, initial (Acute) Community acquired pneumonia (Acute) Congestive heart failure (Acute) Chronic kidney disease (Acute) Atrial fibrillation (Chronic) History of tonsillectomy (Acute) History of open reduction and internal fixation (ORIF) procedure (Acute) History of lumbosacral spine surgery (Acute) History of knee replacement (Acute) History of adenoidectomy (Acute) Reactive airway disease (Acute) Obesity (Acute) Neurodermatitis (Acute) Hypertension, essential (Chronic) Hyperlipidemia (Acute) Type 2 diabetes mellitus (Chronic) Dermatophytosis of groin (Acute) Cough (Acute) Colonic benign neoplasm (Acute) Ankle fracture (Acute) Medical History Ankle fracture Closed, R Annual physical exam BPH associated with nocturia Chronic pain Colonic benign neoplasm Cough Depression Dermatophytosis of groin 08/06/2014 Foreign body of scalp Hyperlipidemia Hypertension, essential 50s Lower extremity weakness Medicare annual wellness visit, initial Neurodermatitis 08/06/2014 Obesity Pediculosis Reactive airway disease Type 2 diabetes mellitus diagnosed in his 50s Surgical History History of adenoidectomy History of knee replacement left knee History of lumbosacral spine surgery decompression History of open reduction and internal fixation (ORIF) procedure Right ankle History of tonsillectomy Family History Mother , at 80 plus old age Atherosclerosis of coronary artery Essential hypertension Father , at 72 Malignant neoplasm of lung Social History marital status: education level: high school occupation: Transportation smoking status: Never smoker alcohol intake frequency: holiday/special occasion only substance use type: does not use additional history: chewing tobacco since age 13 MEDS/ALLERGIES Home Medications and Allergies Home Medications Medication Instructions Recorded Confirmed Type apixaban 5 mg tablet (Eliquis) 5 mg PO BID 02/16/18 07/07/22 History omega-3 fatty acids 1,000 mg 1,000 mg PO QDAY 03/22/18 07/07/22 History capsule (Fish Oil Concentrate) pen needle, diabetic 32 gauge x #100 ea 10/24/19 07/07/22 Rx " insulin detemir U-100 100 unit/mL 35 unit (0.35 mL) subcut QAM #30 mL 04/15/20 07/07/22 Rx (3 mL) subcutaneous pen (Levemir FlexTouch U-100 Insulin) amiodarone 200 mg tablet 200 mg PO QDAY #90 tabs 09/11/21 07/07/22 Rx fenofibrate 160 mg tablet 160 mg PO QDAY #90 tabs 09/11/21 07/07/22 Rx lisinopril 20 mg tablet 20 mg PO QDAY #90 tabs 09/11/21 07/07/22 Rx metoprolol succinate 100 mg 100 mg PO BID #180 tabs 11/11/21 07/07/22 Rx tablet,extended release 24 hr (Toprol XL) blood sugar diagnostic (Accu-Chek #100 ea 12/18/21 07/07/22 Rx SmartView Test Strips) metformin 1,000 mg tablet 1,000 mg PO BID #180 tabs 12/23/21 07/07/22 Rx spironolactone 25 mg tablet 25 mg PO QDAY #90 tabs 12/23/21 07/07/22 Rx (Aldactone) glipizide 10 mg tablet 10 mg PO TID #270 tabs 03/03/22 07/07/22 Rx sertraline 50 mg tablet 50 mg PO QHS #30 tabs 03/19/22 07/07/22 Rx sitagliptin phosphate 100 mg 100 mg PO QDAY #90 tabs 03/25/22 07/07/22 Rx tablet (Januvia) tramadol 50 mg tablet 50 mg PO Q6H PRN pain #60 tabs 03/25/22 07/07/22 Rx blood sugar diagnostic (Accu-Chek 05/07/22 07/07/22 History SmartView Test Strips) compr.stocking,knee,long,x-lrg #12 ea 05/16/22 07/07/22 Rx empagliflozin 10 mg tablet 10 mg PO QAM #60 tabs 05/16/22 07/07/22 Rx (Jardiance) fluconazole 200 mg tablet 200 mg PO Q7D 52 weeks #52 tabs 05/16/22 07/07/22 Rx furosemide 40 mg tablet 40 mg PO BIDD #60 tabs 05/16/22 07/07/22 Rx cephalexin 500 mg capsule 500 mg PO TID 10 days #30 caps 08/17/22 Rx Allergies Allergy/AdvReac Type Severity Reaction Status Date / Time No Known Drug Allergies Allergy Verified 08/24/22 22:01 Physical Examination Vital Signs Vital signs: Temp Pulse Resp BP Pulse Ox O2 Del Method 97.5 F 51 L 14 115/74 100 Room Air 08/25/22 12:00 08/25/22 12:00 08/25/22 12:00 08/25/22 12:00 08/25/22 12:00 08/25/22 12:00 General physical appearance General physical exam: well developed, no distress, no pain and chronically ill Eyes Eye exam: normal ocular movement ENT ENT exam: normal pinna, normal mucosa, no congestion and poor correction Head Head exam IM: Present atraumatic and normocephalic Neck Neck exam: no masses and no venous distension Cardiovascular Cardiovascular exam IM: Present normal rate and rhythm Respiratory Respiratory exam: normal respiratory effort Abdomen Abdomen: Present soft and non tender Integumentary Integumentary: Present other (Moderate lymphedema of both LE especially from knees to toes. Water blisters in lower legs and on dorsal surface feet. ) Neurologic Neurologic: Present other (Peripheral neuropathy.) Musculoskeletal Musculoskeletal: Present other (Did NOT exaine him walking. Toenails of both feet at fungal, deformed and thick debris. ) Psychiatric Psychiatric: Present oriented to time, oriented to person, oriented to place and speech is normal Results Labs 08/25/22 05:21 08/25/22 05:20 Labs: Abnormal lab results 08/24/22 08/24/22 08/24/22 Range/Units 17:00 17:00 22:18 WBC (4.5-11.0) K/mcL Hgb (13.7-17.5) g/dL RDW 19.2 H (11.5-14.5) % Neut % (Auto) 83.9 H (38.0-78.0) % Lymph % (Auto) 6.6 L (15.5-49.0) % Lymph # (Auto) 0.68 L (1.50-4.80) K/mcL [place] # (Auto) (0.10-0.90) K/mcL Absolute Neutrophils 8.63 H (1.80-8.00) K/mcL VBG Lactic Acid 2.5 H (0.5-2.0) mmol/L BUN (8-23) mg/dL Creatinine (0.7-1.2) mg/dL Glucose (70-105) mg/dL Hemoglobin A1c 10.2 H (4.0-6.0) % Hgb Albumin/Globulin Ratio (1.0-2.3) 08/25/22 08/25/22 08/25/22 Range/Units 01:50 05:20 05:21 WBC 12.5 H (4.5-11.0) K/mcL Hgb 12.8 L (13.7-17.5) g/dL RDW 18.8 H (11.5-14.5) % Neut % (Auto) 83.9 H (38.0-78.0) % Lymph % (Auto) 5.2 L (15.5-49.0) % Lymph # (Auto) 0.65 L (1.50-4.80) K/mcL [place] # (Auto) 1.13 H (0.10-0.90) K/mcL Absolute Neutrophils 10.48 H (1.80-8.00) K/mcL VBG Lactic Acid 2.3 H (0.5-2.0) mmol/L BUN 49 H (8-23) mg/dL Creatinine 1.3 H (0.7-1.2) mg/dL Glucose 209 H (70-105) mg/dL Hemoglobin A1c (4.0-6.0) % Hgb Albumin/Globulin Ratio 0.9 L (1.0-2.3) Diabetes panel 08/24/22 08/25/22 Range/Units 17:00 05:20 Sodium 138 (133-145) mmol/L Potassium 5.1 (3.3-5.1) mmol/L Chloride 102 (96-108) mmol/L Carbon Dioxide 24 (22-30) mmol/L BUN 49 H (8-23) mg/dL Creatinine 1.3 H (0.7-1.2) mg/dL Glucose 209 H (70-105) mg/dL Hemoglobin A1c 10.2 H (4.0-6.0) % Hgb Calcium 9.0 (8.6-10.4) mg/dL AST 16 (<40) U/L ALT 11 (<40) U/L Alkaline Phosphatase 83 (39-117) U/L Total Protein 7.2 (5.9-8.4) gm/dL Albumin 3.5 (3.2-5.2) gm/dL Calcium panel 08/25/22 Range/Units 05:20 Calcium 9.0 (8.6-10.4) mg/dL Albumin 3.5 (3.2-5.2) gm/dL Pituitary panel 08/25/22 Range/Units 05:20 Sodium 138 (133-145) mmol/L Potassium 5.1 (3.3-5.1) mmol/L Chloride 102 (96-108) mmol/L Carbon Dioxide 24 (22-30) mmol/L BUN 49 H (8-23) mg/dL Creatinine 1.3 H (0.7-1.2) mg/dL Glucose 209 H (70-105) mg/dL Calcium 9.0 (8.6-10.4) mg/dL Adrenal panel 08/25/22 Range/Units 05:20 Sodium 138 (133-145) mmol/L Potassium 5.1 (3.3-5.1) mmol/L Chloride 102 (96-108) mmol/L Carbon Dioxide 24 (22-30) mmol/L BUN 49 H (8-23) mg/dL Creatinine 1.3 H (0.7-1.2) mg/dL Glucose 209 H (70-105) mg/dL Calcium 9.0 (8.6-10.4) mg/dL Total Bilirubin 0.8 (0.1-1.0) mg/dL AST 16 (<40) U/L ALT 11 (<40) U/L Alkaline Phosphatase 83 (39-117) U/L Total Protein 7.2 (5.9-8.4) gm/dL Albumin 3.5 (3.2-5.2) gm/dL All other labs normal. A/P Narrative A/P Narrative: Assessment: Cellulitis BOTH legs from knees to toes. He cannot take care of himself. Will benefit from short or [facility]. Plan of Treatment: plan: See detailed wound care orders/ Time Spent With Patient Time: Total time spent is greater than 50% in coordination of care (as documented) at patient's floor/unit and/or counseling patient:
[2022-08-25] MEDS: SENNOSIDES 1 TABLET PO SCH (20:38)
[2022-08-26] MEDS: 0.9 % SODIUM CHLORIDE 10 ML SYRINGE IV SCH ×3 (06:01→21:28)
[2022-08-26 06:19] LABS: Basophils # (Auto) 0.07 K/mcL (0.00-0.30); Basophils % (Auto) 0.7 % (0.0-2.0); Eosinophils # (Auto) 0.23 K/mcL (0.00-0.70); Eosinophils % (Auto) 2.4 % (0.0-7.0); Hematocrit 37.5 % (40.1-51.0); Lymphocytes # (Auto) 0.77 K/mcL (1.50-4.80); Mean Cell Volume 82.2 fL (80.0-100.0); Mean Platelet Volume 9.7 fL (8.8-12.5); Monocytes # (Auto) 0.83 K/mcL (0.10-0.90); Monocytes % (Auto) 8.6 % (1.0-12.0); Platelet Count 316 K/mcL (140-440); RBC 4.56 M/mcL (4.63-6.08); Red Cell Distribution Width 18.6 % (11.5-14.5); WBC 9.6 K/mcL (4.5-11.0)
[2022-08-26] MEDS: morphine 4 MG/ML VIAL IV PRN (06:22)
[2022-08-26] MEDS: INSULIN LISPRO 1 UNIT/0.01 ML UNIT SQ SCH ×4 (08:01→21:28)
[2022-08-26] MEDS: DOCUSATE SODIUM 100 MG CAPSULE PO SCH ×2 (08:01→21:28)
[2022-08-26] MEDS: 0.9 % SODIUM CHLORIDE 1,000 ML IV SCH (10:32)
[2022-08-26 10:52] LABS: ALT/SGPT 8 U/L (<40); AST/SGOT 13 U/L (<40); Albumin/Globulin Ratio 0.8 (1.0-2.3); Alkaline Phosphatase 65 U/L (39-117); Bilirubin,Total 0.8 mg/dL (0.1-1.0); Blood Urea Nitrogen 49 mg/dL (8-23); Carbon Dioxide 23 mmol/L (22-30); Chloride 105 mmol/L (96-108); Globulin 3.7 gm/dL (2.2-3.7); Glomerular Filtration Rate 49; Glucose 141 mg/dL (70-105)
--- NOTE | 2022-08-26 11:27 | Internal Med Progress Note ---
SUBJECTIVE Subjective Patient information: Note initiated : 08/26/22 at 11:22 am Service Date, if different from initiated Date: [] Patient: Ovidio Veloz 72 y/o M admitted on 08/24/22 for maggots in wounds on legs. Chief Complaint: [] Interval history: Mr. Veloz is a 72 year old M history of type 2 diabetes mellitus, depression, atrial fibrillation, essential hypertension, dyslipidemia, presenting with right leg swelling and pain. He was admitted in our facility back in May of this year for the same problems. He has noticed maggots in the wounds on his right lower leg so he came to our ED for further evaluations. He had a prescription of Keflex but it was questionable whether he actually used or not. Wound culture from previous visit was positive for group B strep as well as Klebsiella oxytoca. He is commenting of some swelling and pain of his right lower leg. He denies any fever chills or diaphoresis. Vital signs within no rmal limits. Labs significant for lack of leukocytosis with WBC 10.3. Lactic acid pending. Procalcitonin pending. Admission request is called for right leg cellulitis. 08/25: Afebrile overnight. WBC 12.5. MRSA screening negative. Blood and wound culture no growth to date. Patient is complaining of 8/10 pain right lower leg, he cannot qualify the nature of the pain. He denies any fever, chills, or sweating. DC vancomycin due to negative MRSA screening. Continue Rocephin. Request wound care consultations, recommendation appreciated. Physical therapy evaluation and treatment. Work with case checker for placement planning. Overall condition guarded. Stay in [facility]. 08/26: Afebrile overnight. WBC 9.6. Blood and wound culture no growth to date. Patient denies any legs pain. He denies any fever, chills, or sweating. Continue Rocephin. Continue wound care with wound care team Dr. Marte. Physical therapy evaluation and treatment. Work with case checker for placement planning. Overall condition stable. Stay in [facility]. Constitutional Vitals: Vital Signs Temp Pulse Resp BP Pulse Ox O2 Del Method 36.7 C 52 L 12 113/67 100 Room Air 08/26/22 06:56 08/26/22 06:56 08/26/22 06:56 08/26/22 06:56 08/26/22 06:56 08/26/22 06:56 Period Temp Pulse Resp BP Sys/Spence Pulse Ox O2 Del Method O2 Flow Rate Last 24 Hr 36.1 C-36.7 C 51-57 12-20 98-127/58-83 99-100 Room Air-Room Air Intake and Output 08/25/22 08/26/22 08/26/22 19:59 03:59 11:59 Intake Total 1200 1175 1240 Output Total 680 275 250 Balance 520 900 990 Weight 120.882 kg 123.513 kg Intake & Output: Intake & Output 08/25/22 08/26/22 08/26/22 19:59 03:59 11:59 Intake Total 1200 1175 1240 Output Total 680 275 250 Balance 520 900 990 Weight 120.882 kg 123.513 kg Intake: IV 1000 1000 Sodium Chloride 0.9% 1,000 ml @ 1000 1000 100 mls/hr IV .Q10H [facility] Rx#: [id number] Oral 1200 175 240 Output: Void Amount 680 275 250 Other: Meal Dinner Breakfast Percent of Meal Consumed 100% 100% Urine Appearance Clear Clear Clear Urine Color Dark Yellow Dark Yellow Yellow Urine Odor Strong Head Head exam: Present atraumatic and normal inspection Eye Eye exam: Present normal appearance ENT ENT exam: Present mucous membranes moist, normal exam and normal external ear exam Neck Neck exam: Present normal inspection Respiratory Respiratory exam: Present normal respiratory exam Cardiovascular Cardiovascular exam: Present irregular rhythm GI/Abdominal GI/Abdominal exam: Present normal bowel sounds Extremities Exam Extremities exam: Absent normal inspection Additional comments: Right lower leg covered by wound dressing Back Exam Back exam: Present normal inspection Neurological Exam Neurological exam: Present alert and oriented X3 Skin Skin exam: Present warm; Absent intact Additional comments: Right lower leg covered by wound dressing OBJ DATA Labs 08/26/22 05:25 08/26/22 05:20 Labs: Abnormal Lab Results 08/26/22 08/26/22 08/25/22 05:25 05:20 05:21 WBC 12.5 H RBC 4.56 L Hgb 12.0 L 12.8 L Hct 37.5 L RDW 18.6 H 18.8 H Neut % (Auto) 80.0 H 83.9 H Lymph % (Auto) 8.0 L 5.2 L Lymph # (Auto) 0.77 L 0.65 L [place] # (Auto) 1.13 H Absolute Neutrophils 10.48 H POC PT POC INR VBG Lactic Acid POC BUN BUN 49 H Creatinine 1.4 H POC Creatinine Glucose 141 H POC Glucose Hemoglobin A1c Albumin 3.0 L Albumin/Globulin Ratio 0.8 L 08/25/22 08/25/22 08/24/22 05:20 01:50 22:18 WBC RBC Hgb Hct RDW Neut % (Auto) Lymph % (Auto) Lymph # (Auto) [place] # (Auto) Absolute Neutrophils POC PT POC INR VBG Lactic Acid 2.3 H 2.5 H POC BUN BUN 49 H Creatinine 1.3 H POC Creatinine Glucose 209 H POC Glucose Hemoglobin A1c Albumin Albumin/Globulin Ratio 0.9 L 08/24/22 08/24/22 08/24/22 17:13 17:05 17:00 WBC RBC Hgb Hct RDW 19.2 H Neut % (Auto) 83.9 H Lymph % (Auto) 6.6 L Lymph # (Auto) 0.68 L [place] # (Auto) Absolute Neutrophils 8.63 H POC PT 20.4 H POC INR 1.7 H VBG Lactic Acid POC BUN 48 H BUN Creatinine POC Creatinine 1.5 H Glucose POC Glucose 195 H Hemoglobin A1c Albumin Albumin/Globulin Ratio 08/24/22 17:00 WBC RBC Hgb Hct RDW Neut % (Auto) Lymph % (Auto) Lymph # (Auto) [place] # (Auto) Absolute Neutrophils POC PT POC INR VBG Lactic Acid POC BUN BUN Creatinine POC Creatinine Glucose POC Glucose Hemoglobin A1c 10.2 H Albumin Albumin/Globulin Ratio Meds: Medications Acetaminophen (Acetaminophen 325 Mg Tablet) 650 mg PO Q6HP PRN; Protocol PRN Reason: Per Pain Protocol/Fever > 101 Albuterol/Ipratropium (Ipratropium/Albuterol 3 Ml Ampul.Neb) 3 ml NEB Q4HRT PRN PRN Reason: Wheezing Ceftriaxone Sodium (Ceftriaxone 1 Gm Vial) 1 gm IV Q24H [facility] Last Admin: 08/25/22 14:33 Dose: 1 gm Dextrose (Dextrose 50% 50 Ml Vial) 0 ml IV UD PRN PRN Reason: Per Sliding Scale Diagnostic Test (Pha) (Accu-Chek 1 Each Strip) 1 each FS ACHS [facility] Last Admin: 08/26/22 11:21 Dose: 1 each Docusate Sodium (Docusate Sodium 100 Mg Capsule) 100 mg PO BID [facility] Last Admin: 08/26/22 08:01 Dose: 100 mg Glucose (Dextrose 31 Gm Oral.Susp) 15 gm PO PRN PRN PRN Reason: Hypoglycemia Hydralazine HCl (Hydralazine 20 Mg/Ml Vial) 10 mg IV Q4-6HP PRN PRN Reason: Hypertension Insulin Human Lispro (Insulin Lispro 1 Unit/0.01 Ml Unit) 0 unit SQ ACHS [facility]; Protocol Last Admin: 08/26/22 08:01 Dose: 1 units Morphine Sulfate (Morphine 4 Mg/Ml Vial) 2 mg IV Q4HP PRN; Protocol PRN Reason: Per Pain Protocol Last Admin: 08/26/22 06:22 Dose: 2 mg Ondansetron HCl (Ondansetron 4 Mg/2 Ml Vial) 4 mg IV Q6HP PRN PRN Reason: Nausea And Vomiting Senna (Sennosides 1 Tablet) 2 tab PO HS [facility] Last Admin: 08/25/22 20:38 Dose: 2 tab Sodium Chloride (0.9 % Sodium Chloride 10 Ml Syringe) 10 ml IV Q8 [facility] Last Admin: 08/26/22 06:01 Dose: Not Given Trazodone HCl (Trazodone Hcl 50 Mg Tablet) 50 mg PO HSP PRN PRN Reason: Insomnia A/P Assessment and plan (1) Cellulitis of right leg: Status: Acute (2) Atrial fibrillation: Status: Chronic (3) Type 2 diabetes mellitus: Status: Chronic Comment: diagnosed in his 50s (4) Depression: Status: Acute (5) Stage 1 acute kidney injury: Status: Acute (6) Hypertension, essential: Status: Chronic Comment: 50s (7) Hyperlipidemia: Status: Acute Narrative A/P Narrative: Assessment and Plans: 1. Right leg cellulitis: Inpatient med surg Wound care consult, recs. appreciated school business manager for placement planning Physical therapy evaluation and treatment for placement planning Serial lactic acid Procalcitonin 0.07 Wound culture, no growth to date Blood culture, no growth to date cbc w/ auto diff in the morning to trend WBC Continue Rocephin Saline lock Tylenol Tramadol Morphine 2. T2DM: HgA1c 10.2 Hold Metformin Jardiance Glipizide Januvia Insulin Lantus 35 unit qAM Insulin Lispro SSI AC HS Accu Check AC HS Hypoglycemia protocol Diabetic diet 3. Essential hypertension: Metoprolol succinate ER Amiodarone Hold Lisinopril due to JEFFREY Hold diuretics due to JEFFREY Hydralazine 10mg IV q4-6hr PRN SBP>=180 and/or DBP>=110mmHg 4. Stage 1 acute kidney injury: Avoid nephrotoxic agents Saline lock CMP in the morning to trend kidney functions 5. Atrial fibrillation: Metoprolol succinate ER Amiodarone Eliquis 6. Depression: Sertraline 7. Dyslipidemia: [place] 3 acid Fenofibrate GI ppx: not currently indicated DVT ppx: Eliquis Code status: Full Prognosis: Stable Disposition: inpatient med surg Plan of Treatment: plan: See detailed wound care orders/ Time Spent With Patient Time: Total time spent is greater than 50% in coordination of care (as documented) at patient's floor/unit and/or counseling patient: Subsequent: Total time with patient: 35 - 49 minutes QUALITY VTE Deep Vein Thrombosis/Pulmonary Embolism Present on Admission: No
[2022-08-26] MEDS: ACETAMINOPHEN 325 MG TABLET PO PRN ×2 (13:57→23:54)
[2022-08-26] MEDS: cefTRIAXone 1 GM VIAL IV SCH (14:32)
[2022-08-26] MEDS: SENNOSIDES 1 TABLET PO SCH (21:28)
[2022-08-27] MEDS: 0.9 % SODIUM CHLORIDE 10 ML SYRINGE IV SCH ×2 (05:31→14:10)
[2022-08-27 07:30] LABS: ALT/SGPT 7 U/L (<40); AST/SGOT 9 U/L (<40); Albumin 2.8 gm/dL (3.2-5.2); Albumin/Globulin Ratio 0.8 (1.0-2.3); Alkaline Phosphatase 72 U/L (39-117); Bilirubin,Total 0.6 mg/dL (0.1-1.0); Blood Urea Nitrogen 42 mg/dL (8-23); Calcium 8.7 mg/dL (8.6-10.4); Carbon Dioxide 22 mmol/L (22-30); Chloride 106 mmol/L (96-108); Globulin 3.5 gm/dL (2.2-3.7); Glomerular Filtration Rate 54; Glucose 211 mg/dL (70-105)
[2022-08-27] MEDS: INSULIN LISPRO 1 UNIT/0.01 ML UNIT SQ SCH ×2 (07:31→11:58)
[2022-08-27 07:32] LABS: Basophils # (Auto) 0.09 K/mcL (0.00-0.30); Eosinophils # (Auto) 0.26 K/mcL (0.00-0.70); Hematocrit 37.4 % (40.1-51.0); Hemoglobin 11.8 g/dL (13.7-17.5); Lymphocytes # (Auto) 0.67 K/mcL (1.50-4.80); Lymphocytes % (Auto) 7.7 % (15.5-49.0); Mean Cell Volume 82.4 fL (80.0-100.0); Mean Corpuscular HGB Conc 31.6 g/dL (31.0-36.0); Mean Platelet Volume 9.7 fL (8.8-12.5); Monocytes # (Auto) 0.62 K/mcL (0.10-0.90); Monocytes % (Auto) 7.1 % (1.0-12.0); Platelet Count 300 K/mcL (140-440); RBC 4.54 M/mcL (4.63-6.08); Red Cell Distribution Width 18.6 % (11.5-14.5); WBC 8.7 K/mcL (4.5-11.0)
[2022-08-27] MEDS: DOCUSATE SODIUM 100 MG CAPSULE PO SCH (08:22)
--- NOTE | 2022-08-27 14:00 | Discharge Summary ---
Discharge Provider Provider IMPORTANT FOLLOW-UP INFORMATION FOR PCP: Patient information: Note initiated : 08/27/22 at 1:58 pm Service Date, if different from initiated Date: [] Patient: Ovidio Veloz 72 y/o M admitted on 08/24/22 for maggots in wounds on legs. Chief Complaint: [] Date of admission: 08/24/22 21:35 Discharge date: 08/27/22 Primary care physician: Serafin Sy MD Attending physician on admission: Zana Frazier Consults: 08/24/22 18:28 Consult to Physician [CONS] Stat Comment: Consulting Provider: Zana Frazier Reason For Exam: Physician to Consult 08/25/22 12:21 Consult to Physician [CONS] Routine Comment: Consulting Provider: Rebel Marte Reason For Exam: Physician to Consult 08/27/22 09:23 Consult to Physician [CONS] Routine Comment: snf referral Consulting Provider: [facility] Reason For Exam: Physician to Consult Attending physician on discharge: Zana Larson [place] COURSE Hospital Course Hospital course: Mr. Veloz is a 72 year old M history of type 2 diabetes mellitus, depression, atrial fibrillation, essential hypertension, dyslipidemia, presenting with right leg swelling and pain. He was admitted in our facility back in May of this year for the same problems. He has noticed maggots in the wounds on his right lower leg so he came to our ED for further evaluations. He had a prescription of Keflex but it was questionable whether he actually used or not. Wound culture from previous visit was positive for group B strep as well as Klebsiella oxytoca. He is commenting of some swelling and pain of his right lower leg. He denies any fever chills or diaphoresis. Vital signs within normal limits. Labs significant for lack of leukocytosis with WBC 10.3. Lactic acid pending. Procalcitonin pending. Admission request is called for right leg cellulitis. 08/25: Afebrile overnight. WBC 12.5. MRSA screening negative. Blood and wound culture no growth to date. Patient is complaining of 8/10 pain right lower leg, he cannot qualify the nature of the pain. He denies any fever, chills, or sweating. DC vancomycin due to negative MRSA screening. Continue Rocephin. Request wound care consultations, recommendation appreciated. Physical therapy evaluation and treatment. Work with casework supervisor for placement planning. Overall condition guarded. Stay in [facility]. 08/26: Afebrile overnight. WBC 9.6. Blood and wound culture no growth to date. Patient denies any legs pain. He denies any fever, chills, or sweating. Continue Rocephin. Continue wound care with wound care team Dr. Marte. Physical therapy evaluation and treatment. Work with casework supervisor for placement planning. Overall condition stable. Stay in [facility]. 08/27: Accepted by and being discharged to SNF. Continue Keflex. Follow-up with wound care in 2 weeks. All questions answered prior to patient being discharged. Discharge diagnosis: Legs cellulitis Time Spent with Patient Time attestation: Total time spent providing and/or coordinating discharge services: Time spent: Greater than 30 minutes EXAM Constitutional Vitals: Temp Pulse Resp BP Pulse Ox O2 Del Method 36.2 C 69 22 122/61 99 Room Air 08/27/22 12:00 08/27/22 12:00 08/27/22 12:00 08/27/22 12:00 08/27/22 12:00 08/27/22 12:00 General appearance: cooperative and no acute distress Head Head exam: Present atraumatic and normocephalic Eye Eye exam: Present EOMI and PERRL ENT ENT exam: Present mucous membranes moist, normal exam and normal external ear exam Neck Neck exam: Present normal inspection; Absent lymphadenopathy, tenderness or thyromegaly Respiratory Respiratory exam: Absent accessory muscle use, respiratory distress or wheezes Cardiovascular Cardiovascular exam: Present irregular rhythm; Absent JVD GI/Abdominal GI/Abdominal exam: Present normal bowel sounds and soft; Absent organomegaly or tenderness Rectal Rectal exam: Present deferred Extremities Exam Extremities exam: Present full ROM and normal capillary refill; Absent normal inspection or tenderness Additional comments: Erythema, skin desquamation of bilateral lower legs Neurological Exam Neurological exam: Present alert, CN II-XII intact and oriented X3; Absent motor sensory deficit Psychiatric Psychiatric exam: Present normal affect and normal mood; Absent anxious or depressed Skin Skin exam: Absent intact Additional comments: Erythema, skin desquamation of bilateral lower legs Discharge Data Data Completed and Pending Labs on day of discharge: Labs from last 24 hours 08/27/22 08/27/22 06:00 06:00 WBC 8.7 RBC 4.54 L Hgb 11.8 L Hct 37.4 L MCV 82.4 MCH 26.0 MCHC 31.6 RDW 18.6 H Plt Count 300 MPV 9.7 Immature Gran % (Auto) 1.2 H Neut % (Auto) 80.0 H Lymph % (Auto) 7.7 L [place] % (Auto) 7.1 Eos % (Auto) 3.0 Baso % (Auto) 1.0 Lymph # (Auto) 0.67 L [place] # (Auto) 0.62 Eos # (Auto) 0.26 Baso # (Auto) 0.09 Immature Gran # 0.10 H Absolute Neutrophils 6.94 Sodium 137 Potassium 4.6 Chloride 106 Carbon Dioxide 22 Anion Gap 9.0 BUN 42 H Creatinine 1.3 H GFR Calculation 54 Glucose 211 H Calcium 8.7 Total Bilirubin 0.6 AST 9 ALT 7 Alkaline Phosphatase 72 Total Protein 6.3 Albumin 2.8 L Globulin 3.5 Albumin/Globulin Ratio 0.8 L Preliminary micro results at discharge 08/24/22 18:08 Blood Culture - Preliminary Blood 08/24/22 17:08 Blood Culture - Preliminary Blood 08/24/22 22:00 Gram Stain - Preliminary Leg - Lower Right Wound Culture - Preliminary Discharge Plan Patient/Caregiver Discharge Instructions Activity: increase activity as tolerated Diet: Consistent Carbohydrate Prescriptions: Continued (DME) pen needle, diabetic 32 gauge x 5/32" needle See Rx Instructions .ROUTE .MEDSUPPLY Qty: 100 3RF Rx Instructions: Use with levemir once daily Levemir FlexTouch U100 Insulin 100 unit/mL (3 mL) insulin pen 35 unit SUB-Q QAM Qty: 30 1RF fenofibrate 160 mg tablet 160 mg tablet 160 mg PO QDAY Qty: 90 1RF lisinopril 20 mg tablet 20 mg PO QDAY Qty: 90 1RF amiodarone 200 mg tablet 200 mg PO QDAY Qty: 90 1RF metoprolol succinate [Toprol XL] 100 mg tablet extended release 24 hr 100 mg PO BID Qty: 180 1RF (DME) Accu-Chek SmartView Test Strip Strip See Dose Instructions .ROUTE .MEDSUPPLY Qty: 100 3RF Dose Instruction: As directed Rx Instructions: Use to test BG once daily spironolactone [Aldactone] 25 mg tablet 25 mg PO QDAY Qty: 90 1RF metformin 1,000 mg tablet 1,000 mg PO BID Qty: 180 1RF glipizide 10 mg tablet 10 mg PO TID Qty: 270 1RF sertraline 50 mg tablet 50 mg PO QHS Qty: 30 1RF Januvia 100 mg tablet 100 mg PO QDAY Qty: 90 1RF omega-3 fatty acids [Fish Oil Concentrate] 1,000 mg capsule 1,000 mg PO QDAY apixaban [Eliquis] 5 mg tablet 5 mg PO BID tramadol 50 mg tablet 50 mg PO Q6H PRN (Reason: pain) Qty: 30 0RF (DME) Accu-Chek SmartView Test Strip Strip MISCELLANEOUS QDAY fluconazole 200 mg tablet 200 mg PO Q7D 364 Days Qty: 52 0RF furosemide 40 mg Tablet 40 mg PO BIDD Qty: 60 3RF Jardiance 10 mg tablet 10 mg PO QAM Qty: 60 5RF (DME) compr.stocking,knee,long,x-lrg Misc See Rx Instructions .Route Qty: 12 2RF Rx Instructions: As directed cephalexin 500 mg capsule 500 mg PO TID 10 Days Qty: 30 0RF Follow Up Plan Follow up with: Rebel Marte MD [Physician] - Serafin Sy MD [Primary Care Provider] - Patient Disposition: Xfer SNF Plan of Treatment: plan: See detailed wound care orders/ Prognosis: Fair Rehab Potential: Good I certify that the patient requires SNF services: Yes Overall status at discharge: patient is progressing back to baseline Discharge Orders: Discharge Order (Routine); Ordered 08/27/22 Ordered By: Zana ARMENTA VTE Deep Vein Thrombosis/Pulmonary Embolism Present on Admission: No
[2022-08-27] MEDS ORDERED: traMADol 50 MG TABLET PO PRN (14:02)
[2022-08-27] MEDS: cefTRIAXone 1 GM VIAL IV SCH (14:10)
[2022-08-27] MEDS ORDERED: CEPHALEXIN 500 MG CAPSULE PO SCH (15:00)
--- NOTE | 2022-08-27 15:23 | General Surgery Progress Note ---
SUBJECTIVE Subjective Patient information: Note initiated : 08/27/22 at 3:18 pm Service Date, if different from initiated Date: [] Patient: Ovidio Veloz 72 y/o M admitted on 08/24/22 for maggots in wounds on legs. Chief Complaint: [] Additional PMFSH (Level 3 Only): Seen on rounds. Doing well. At his baseline. All his needs are met. Constitutional Vitals: Vital Signs Temp Pulse Resp BP Pulse Ox O2 Del Method 97.1 F 69 22 122/61 99 Room Air 08/27/22 12:00 08/27/22 12:00 08/27/22 12:00 08/27/22 12:00 08/27/22 12:00 08/27/22 12:00 Period Temp Pulse Resp BP Sys/Spence Pulse Ox O2 Del Method O2 Flow Rate Last 24 Hr 97.0 F-97.6 F 54-73 12-22 108-129/61-83 98-100 Room Air-Room Air Intake and Output 08/27/22 08/27/22 08/27/22 03:59 11:59 19:59 Intake Total 0 120 600 Output Total 700 Balance -700 120 600 Weight 276 lb 9.6 oz Intake & Output: Intake & Output 08/27/22 08/27/22 08/27/22 03:59 11:59 19:59 Intake Total 0 120 600 Output Total 700 Balance -700 120 600 Weight 276 lb 9.6 oz Intake: Oral 0 120 600 Output: Void Amount 700 Other: Meal Lunch Percent of Meal Consumed 100% Feeding Ability Independent Urine Appearance Clear Urine Color Yellow # Voids 1 Exam: AVSS Cellulitis of RIGHT leg has resolved. Moisture dermatitis of RIGHT leg is improving. A/P Narrative A/P Narrative: Assessment: Satisfactory progress. Resolved cellulitis of RIGHT leg. Chronic onychomycosis of toenails. Plan of Treatment: Plan: Being d/c to [facility]. See detailed wound care orders. F/U at wound care clinic ONE week after d/c. Time Spent With Patient Time: Total time spent is greater than 50% in coordination of care (as documented) at patient's floor/unit and/or counseling patient: Initial: Total time with patient: Less than 40 minutes
[2022-08-27] MEDS ORDERED: glipiZIDE 5 MG TABLET PO SCH (17:00)
[2022-08-27] MEDS ORDERED: APIXABAN 5 MG TABLET PO SCH (21:00)
[2022-08-27] MEDS ORDERED: METOPROLOL SUCCINATE 50 MG TAB.XL.24H PO SCH (21:00)
[2022-08-28] MEDS ORDERED: INSULIN GLARGINE, HUMAN 1 UNIT/0.01 ML SQ SCH (09:00)
[2022-08-28] MEDS ORDERED: FENOFIBRATE 43 MG CAPSULE PO SCH (09:00)
[2022-08-28] MEDS ORDERED: sitaGLIPtin 100 MG TABLET PO SCH (09:00)
[2022-08-28] MEDS ORDERED: AMIODARONE HCL 200 MG TABLET PO SCH (09:00)
== END 2022-08-27 15:30 ==
LOC: ED 15:21 → MEDSUR 21:35 → INTOOBSV 21:35
PROVIDERS: ADMIT Internal Medicine; ATTEND Internal Medicine

== ENCOUNTER 2022-11-24 08:56 | Inpatient (IN) ==
[2022-11-24 09:18] LABS: POC Calcium, Ionized 1.19 (1.16-1.32); POC Potassium 4.7 (3.3-5.1)
[2022-11-24 10:12] LABS: Basophils % (Auto) 0.8 % (0.0-2.0); Eosinophils # (Auto) 0.23 K/mcL (0.00-0.70); Eosinophils % (Auto) 1.8 % (0.0-7.0); Hematocrit 44.3 % (40.1-51.0); Hemoglobin 14.3 g/dL (13.7-17.5); Lymphocytes # (Auto) 0.78 K/mcL (1.50-4.80); Mean Cell Volume 84.4 fL (80.0-100.0); Mean Corpuscular HGB Conc 32.3 g/dL (31.0-36.0); Mean Platelet Volume 9.9 fL (8.8-12.5); Monocytes # (Auto) 1.06 K/mcL (0.10-0.90); Monocytes % (Auto) 8.2 % (1.0-12.0); Neutrophils % (Auto) 82.8 % (38.0-78.0); Platelet Count 379 K/mcL (140-440); RBC 5.25 M/mcL (4.63-6.08); Red Cell Distribution Width 18.1 % (11.5-14.5)
[2022-11-24 10:35] LABS: Albumin 3.8 gm/dL (3.2-5.2); Bilirubin,Direct 0.2 mg/dL (<0.3); Bilirubin,Total 0.5 mg/dL (0.1-1.0); Globulin 4.4 gm/dL (2.2-3.7)
[2022-11-24] MEDS ORDERED: cefTRIAXone 1 GM VIAL IV ONE (11:29)
[2022-11-24] MEDS ORDERED: 0.9 % SODIUM CHLORIDE 500 ML IV ONE (11:41)
[2022-11-24] MEDS ORDERED: LIDOCAINE 2% URO-JET 10 ML JEL.PF.APP UR ONE (12:42)
[2022-11-24 14:04] LABS: Appearance,Urine HAZY (Clear); Bilirubin,Urine Negative (Negative); Color,Urine YELLOW; Culture Indicated,Urine No; Glucose,Urine (UA) 50 mg/dL (Negative); Ketones,Urine Negative (Negative); Leukocyte Esterase,Urine 25 /uL (Negative); Mucus,Urine FEW /hpf; Nitrate,Urine Negative (Negative); Protein,Urine Negative (Negative); Specific Gravity,Urine 1.011 (1.000-1.035); Urine Blood >=1.0 mg/dL (Negative); Urine Hyaline Cast 8 /lph (0-2); Urine RBC > 182 /hpf (0-1); Urine Squamous Epithelial Cell 0 /hpf (0-4); Urine WBC 1 /hpf (0-4); Urobilinogen,Urine Negative
[2022-11-24] MEDS ORDERED: ACETAMINOPHEN 325 MG TABLET PO PRN (15:38)
[2022-11-24] MEDS ORDERED: ONDANSETRON 4 MG/2 ML VIAL IV PRN (15:38)
[2022-11-24] MEDS ORDERED: MAGNESIUM HYDROXIDE 30 ML ORAL.SUSP PO PRN (15:38)
[2022-11-24] MEDS ORDERED: BISACODYL 10 MG SUPP.RECT PR PRN (15:38)
[2022-11-24] MEDS: 0.9 % SODIUM CHLORIDE 10 ML SYRINGE IV SCH (21:32)
[2022-11-25 06:43] LABS: Basophils # (Auto) 0.11 K/mcL (0.00-0.30); Basophils % (Auto) 1.1 % (0.0-2.0); Eosinophils # (Auto) 0.33 K/mcL (0.00-0.70); Eosinophils % (Auto) 3.2 % (0.0-7.0); Hemoglobin 14.3 g/dL (13.7-17.5); Lymphocytes # (Auto) 0.81 K/mcL (1.50-4.80); Lymphocytes % (Auto) 7.8 % (15.5-49.0); Mean Cell Volume 86.2 fL (80.0-100.0); Mean Corpuscular HGB Conc 31.8 g/dL (31.0-36.0); Mean Platelet Volume 9.5 fL (8.8-12.5); Monocytes % (Auto) 10.6 % (1.0-12.0); Neutrophils % (Auto) 76.8 % (38.0-78.0); Platelet Count 305 K/mcL (140-440); RBC 5.22 M/mcL (4.63-6.08); Red Cell Distribution Width 18.1 % (11.5-14.5); WBC 10.4 K/mcL (4.5-11.0)
[2022-11-25 07:07] LABS: ALT/SGPT 11 U/L (<40); AST/SGOT 14 U/L (<40); Albumin 3.5 gm/dL (3.2-5.2); Albumin/Globulin Ratio 0.9 (1.0-2.3); Alkaline Phosphatase 89 U/L (39-117); Bilirubin,Total 0.4 mg/dL (0.1-1.0); Blood Urea Nitrogen 86 mg/dL (8-23); Calcium 9.7 mg/dL (8.6-10.4); Carbon Dioxide 21 mmol/L (22-30); Chloride 101 mmol/L (96-108); Globulin 4.1 gm/dL (2.2-3.7); Glomerular Filtration Rate 32; Glucose 136 mg/dL (70-105)
[2022-11-25] MEDS: 0.9 % SODIUM CHLORIDE 10 ML SYRINGE IV SCH ×3 (08:23→20:24)
[2022-11-25] MEDS: AMIODARONE HCL 200 MG TABLET PO SCH (12:10)
[2022-11-25] MEDS: glipiZIDE 5 MG TABLET PO SCH ×2 (14:37→20:24)
[2022-11-25] MEDS: metFORMIN 500 MG TABLET PO SCH (17:27)
[2022-11-25] MEDS: SERTRALINE 50 MG TABLET PO SCH (20:24)
[2022-11-25] MEDS: APIXABAN 5 MG TABLET PO SCH (20:24)
[2022-11-25] MEDS: traMADol 50 MG TABLET PO PRN (23:48)
[2022-11-26] MEDS: 0.9 % SODIUM CHLORIDE 10 ML SYRINGE IV SCH ×3 (06:05→20:32)
[2022-11-26 07:11] LABS: Basophils % (Auto) 0.9 % (0.0-2.0); Eosinophils # (Auto) 0.36 K/mcL (0.00-0.70); Eosinophils % (Auto) 3.4 % (0.0-7.0); Hematocrit 43.7 % (40.1-51.0); Hemoglobin 13.9 g/dL (13.7-17.5); Lymphocytes # (Auto) 0.92 K/mcL (1.50-4.80); Lymphocytes % (Auto) 8.7 % (15.5-49.0); Mean Cell Volume 87.2 fL (80.0-100.0); Mean Corpuscular HGB Conc 31.8 g/dL (31.0-36.0); Mean Platelet Volume 10.1 fL (8.8-12.5); Monocytes # (Auto) 0.95 K/mcL (0.10-0.90); Neutrophils % (Auto) 77.6 % (38.0-78.0); Platelet Count 320 K/mcL (140-440); RBC 5.01 M/mcL (4.63-6.08); Red Cell Distribution Width 17.9 % (11.5-14.5); WBC 10.5 K/mcL (4.5-11.0)
[2022-11-26 08:12] LABS: ALT/SGPT 7 U/L (<40); AST/SGOT 16 U/L (<40); Albumin 3.4 gm/dL (3.2-5.2); Albumin/Globulin Ratio 0.9 (1.0-2.3); Alkaline Phosphatase 83 U/L (39-117); Bilirubin,Total 0.3 mg/dL (0.1-1.0); Blood Urea Nitrogen 61 mg/dL (8-23); Calcium 9.5 mg/dL (8.6-10.4); Carbon Dioxide 24 mmol/L (22-30); Chloride 104 mmol/L (96-108); Globulin 3.9 gm/dL (2.2-3.7); Glomerular Filtration Rate 45; Glucose 99 mg/dL (70-105)
[2022-11-26] MEDS: INSULIN GLARGINE, HUMAN 1 UNIT/0.01 ML SQ SCH (09:20)
[2022-11-26] MEDS: APIXABAN 5 MG TABLET PO SCH ×2 (09:21→20:32)
[2022-11-26] MEDS: METOPROLOL SUCCINATE 25 MG TAB.XL.24H PO SCH (09:21)
[2022-11-26] MEDS: AMIODARONE HCL 200 MG TABLET PO SCH (09:21)
[2022-11-26] MEDS: sitaGLIPtin 100 MG TABLET PO SCH (09:21)
[2022-11-26] MEDS: FISH OIL 1,000 MG CAPSULE PO SCH (09:23)
[2022-11-26] MEDS: glipiZIDE 5 MG TABLET PO SCH ×3 (09:24→20:32)
[2022-11-26] MEDS: metFORMIN 500 MG TABLET PO SCH ×2 (09:57→17:32)
[2022-11-26] MEDS: SERTRALINE 50 MG TABLET PO SCH (20:32)
[2022-11-27] MEDS: 0.9 % SODIUM CHLORIDE 10 ML SYRINGE IV SCH ×2 (05:36→14:09)
[2022-11-27 06:53] LABS: Basophils # (Auto) 0.13 K/mcL (0.00-0.30); Basophils % (Auto) 1.1 % (0.0-2.0); Eosinophils # (Auto) 0.35 K/mcL (0.00-0.70); Hematocrit 44.6 % (40.1-51.0); Hemoglobin 13.9 g/dL (13.7-17.5); Lymphocytes # (Auto) 0.95 K/mcL (1.50-4.80); Lymphocytes % (Auto) 8.2 % (15.5-49.0); Mean Cell Volume 87.8 fL (80.0-100.0); Mean Corpuscular HGB Conc 31.2 g/dL (31.0-36.0); Mean Platelet Volume 10.2 fL (8.8-12.5); Monocytes % (Auto) 7.8 % (1.0-12.0); Neutrophils % (Auto) 79.5 % (38.0-78.0); Platelet Count 320 K/mcL (140-440); RBC 5.08 M/mcL (4.63-6.08); Red Cell Distribution Width 17.7 % (11.5-14.5); WBC 11.6 K/mcL (4.5-11.0)
[2022-11-27 07:19] LABS: ALT/SGPT 11 U/L (<40); AST/SGOT 15 U/L (<40); Albumin 3.4 gm/dL (3.2-5.2); Albumin/Globulin Ratio 0.9 (1.0-2.3); Alkaline Phosphatase 83 U/L (39-117); Bilirubin,Total 0.2 mg/dL (0.1-1.0); Blood Urea Nitrogen 51 mg/dL (8-23); Calcium 9.4 mg/dL (8.6-10.4); Carbon Dioxide 24 mmol/L (22-30); Chloride 107 mmol/L (96-108); Globulin 3.8 gm/dL (2.2-3.7); Glomerular Filtration Rate 49; Glucose 107 mg/dL (70-105)
[2022-11-27] MEDS: INSULIN GLARGINE, HUMAN 1 UNIT/0.01 ML SQ SCH (08:15)
[2022-11-27] MEDS: AMIODARONE HCL 200 MG TABLET PO SCH (08:17)
[2022-11-27] MEDS: glipiZIDE 5 MG TABLET PO SCH (08:17)
[2022-11-27] MEDS: sitaGLIPtin 100 MG TABLET PO SCH (08:17)
[2022-11-27] MEDS: metFORMIN 500 MG TABLET PO SCH (08:18)
[2022-11-27] MEDS: METOPROLOL SUCCINATE 25 MG TAB.XL.24H PO SCH (08:18)
[2022-11-27] MEDS: APIXABAN 5 MG TABLET PO SCH (08:19)
[2022-11-27] MEDS: FISH OIL 1,000 MG CAPSULE PO SCH (08:22)
[2022-11-27] MEDS ORDERED: SODIUM ZIRCONIUM CYCLOSILICATE 10 GM PACKET PO SCH (10:30)
[2022-11-27] MEDS: traMADol 50 MG TABLET PO PRN (11:35)
[2022-11-27 18:03] VITALS: TEMP 97; O2SAT 97
== END 2022-11-27 14:25 | DRG 683 ==
LOC: ED 08:56 → MEDSUR 15:28
PROVIDERS: ADMIT Internal Medicine; ATTEND Internal Medicine

== ENCOUNTER 2023-02-05 04:26 | Inpatient (IN) ==
[2023-02-05 07:00] LABS: Basophils # (Auto) 0.08 K/mcL (0.00-0.30); Basophils % (Auto) 0.6 % (0.0-2.0); Eosinophils # (Auto) 0.33 K/mcL (0.00-0.70); Eosinophils % (Auto) 2.4 % (0.0-7.0); Hematocrit 38.8 % (40.1-51.0); Hemoglobin 11.7 g/dL (13.7-17.5); Lymphocytes # (Auto) 0.69 K/mcL (1.50-4.80); Lymphocytes % (Auto) 5.1 % (15.5-49.0); Mean Cell Volume 90.2 fL (80.0-100.0); Mean Corpuscular HGB Conc 30.2 g/dL (31.0-36.0); Mean Platelet Volume 10.7 fL (8.8-12.5); Monocytes # (Auto) 1.13 K/mcL (0.10-0.90); Monocytes % (Auto) 8.3 % (1.0-12.0); Neutrophils % (Auto) 83.2 % (38.0-78.0); Platelet Count 308 K/mcL (140-440); Red Cell Distribution Width 19.3 % (11.5-14.5); WBC 13.7 K/mcL (4.5-11.0)
[2023-02-05 07:32] LABS: Appearance,Urine CLEAR (Clear); Bilirubin,Urine Negative (Negative); Color,Urine YELLOW; Culture Indicated,Urine Yes; Glucose,Urine (UA) Negative (Negative); Ketones,Urine Negative (Negative); Leukocyte Esterase,Urine 75 /uL (Negative); Mucus,Urine FEW /hpf; Nitrate,Urine Negative (Negative); Protein,Urine Negative (Negative); Specific Gravity,Urine 1.016 (1.000-1.035); Urine Hyaline Cast 3 /lph (0-2); Urine RBC 31 /hpf (0-3); Urine Squamous Epithelial Cell < 1 /hpf (0-4); Urine WBC 21 /hpf (0-4); Urobilinogen,Urine Negative
[2023-02-05 07:37] LABS: Thyroid Stimulating Hormone 2.78 uIU/mL (0.27-5.01)
[2023-02-05 07:58] LABS: ALT/SGPT 9 U/L (<40); AST/SGOT 13 U/L (<40); Albumin 3.9 gm/dL (3.2-5.2); Alkaline Phosphatase 80 U/L (39-117); Bilirubin,Total 0.5 mg/dL (0.1-1.0); Blood Urea Nitrogen 103 mg/dL (8-23); Calcium 9.1 mg/dL (8.6-10.4); Carbon Dioxide 18 mmol/L (22-30); Chloride 99 mmol/L (96-108); Globulin 3.9 gm/dL (2.2-3.7); Glomerular Filtration Rate 30; Glucose 151 mg/dL (70-105)
[2023-02-05] MEDS ORDERED: VANCOMYCIN 1,000 MG in 0.9 % SODIUM CHLORIDE 250 ML IV ONE (08:07)
[2023-02-05] MEDS ORDERED: PIPERACILLIN SODIUM/TAZOBACTAM 3.375 GM in DEXTROSE 5% IN WATER 50 ML IV ONE (08:07)
[2023-02-05 09:59] LABS: POC Calcium, Ionized 1.17 (1.16-1.32); POC Creatinine 2.2 (0.6-1.2); POC Potassium 5.1 (3.3-5.1)
[2023-02-05] MEDS ORDERED: VANCOMYCIN 2,000 MG in 0.9 % SODIUM CHLORIDE 500 ML IV ONE (10:00)
[2023-02-05] MEDS ORDERED: POTASSIUM CHLORIDE 20 MEQ TABLET PO PRN ×2 (11:21)
[2023-02-05] MEDS ORDERED: DEXTROSE 31 GM ORAL.SUSP PO PRN (11:21)
[2023-02-05] MEDS ORDERED: POTASSIUM CHLORIDE 40 MEQ in DEXTROSE 5% IN WATER 500 ML IV PRN (11:21)
[2023-02-05] MEDS ORDERED: ACETAMINOPHEN 325 MG TABLET PO PRN (11:21)
[2023-02-05] MEDS ORDERED: METOPROLOL TARTRATE 5 MG/5 ML VIAL IV PRN (11:21)
[2023-02-05] MEDS ORDERED: SENNOSIDES 1 TABLET PO PRN (11:21)
[2023-02-05] MEDS ORDERED: 0.9 % SODIUM CHLORIDE 1,000 ML IV SCH (11:21)
[2023-02-05] MEDS ORDERED: MAGNESIUM SULFATE 2 GM/50 ML BAG IV PRN (11:21)
[2023-02-05] MEDS ORDERED: morphine 4 MG/ML VIAL IV PRN (11:21)
[2023-02-05] MEDS ORDERED: POLYETHYLENE GLYCOL 3350 17 GM PACKET PO PRN (11:21)
[2023-02-05] MEDS ORDERED: DEXTROSE 50% 50 ML VIAL IV PRN (11:21)
[2023-02-05] MEDS ORDERED: VANCOMYCIN PER PHARMACY IV SCH (11:21)
[2023-02-05] MEDS ORDERED: ONDANSETRON 4 MG/2 ML VIAL IV PRN (11:21)
[2023-02-05] MEDS ORDERED: IPRATROPIUM/ALBUTEROL 3 ML AMPUL.NEB NEB PRN (11:21)
[2023-02-05] MEDS: INSULIN LISPRO 1 UNIT/0.01 ML UNIT SQ SCH ×3 (12:48→21:17)
[2023-02-05] MEDS: PIPERACILLIN SODIUM/TAZOBACTAM 3.375 GM in DEXTROSE 5% IN WATER 50 ML IV SCH ×3 (12:52→23:32)
[2023-02-05] MEDS: 0.9 % SODIUM CHLORIDE 10 ML SYRINGE IV SCH ×2 (12:52→21:00)
[2023-02-05] MEDS ORDERED: FLUZONE HD QS2023-24/PF 240 MCG/0.7 ML SYRINGE IM ONE (15:00)
[2023-02-05] MEDS: HYDROcodone/APAP 5/325MG TABLET PO PRN ×2 (15:59→22:24)
[2023-02-05] MEDS: SODIUM CHLORIDE IRRIG IRR SCH (18:06)
[2023-02-05] MEDS: GENTAMICIN SULFATE IRR SCH (18:06)
[2023-02-05] MEDS: CLINDAMYCIN IRR SCH (18:06)
[2023-02-05] MEDS: DOCUSATE SODIUM 100 MG CAPSULE PO SCH (20:59)
[2023-02-06] MEDS: PIPERACILLIN SODIUM/TAZOBACTAM 3.375 GM in DEXTROSE 5% IN WATER 50 ML IV SCH ×4 (05:51→23:22)
[2023-02-06] MEDS: 0.9 % SODIUM CHLORIDE 10 ML SYRINGE IV SCH ×3 (05:51→21:25)
[2023-02-06 07:25] LABS: Basophils # (Auto) 0.07 K/mcL (0.00-0.30); Basophils % (Auto) 0.6 % (0.0-2.0); Eosinophils # (Auto) 0.25 K/mcL (0.00-0.70); Eosinophils % (Auto) 2.2 % (0.0-7.0); Hematocrit 38.6 % (40.1-51.0); Hemoglobin 11.5 g/dL (13.7-17.5); Lymphocytes % (Auto) 5.3 % (15.5-49.0); Mean Cell Volume 91.3 fL (80.0-100.0); Mean Corpuscular HGB Conc 29.8 g/dL (31.0-36.0); Mean Platelet Volume 10.2 fL (8.8-12.5); Monocytes # (Auto) 1.06 K/mcL (0.10-0.90); Monocytes % (Auto) 9.3 % (1.0-12.0); Platelet Count 261 K/mcL (140-440); RBC 4.23 M/mcL (4.63-6.08); Red Cell Distribution Width 19.4 % (11.5-14.5); WBC 11.3 K/mcL (4.5-11.0)
[2023-02-06 07:46] LABS: ALT/SGPT 7 U/L (<40); AST/SGOT 11 U/L (<40); Albumin 3.5 gm/dL (3.2-5.2); Alkaline Phosphatase 57 U/L (39-117); Bilirubin,Direct 0.4 mg/dL (<0.3); Bilirubin,Total 0.7 mg/dL (0.1-1.0); Blood Urea Nitrogen 83 mg/dL (8-23); Calcium 9.2 mg/dL (8.6-10.4); Carbon Dioxide 21 mmol/L (22-30); Chloride 102 mmol/L (96-108); Globulin 3.6 gm/dL (2.2-3.7); Glomerular Filtration Rate 34; Glucose 93 mg/dL (70-105); Lactate Dehydrogenase 194 U/L (135-225); Phosphorous 4.1 mg/dL (2.5-4.5); Triglycerides 74 mg/dL (<150); Uric Acid 10.5 mg/dL (2.5-8.0)
[2023-02-06] MEDS: INSULIN LISPRO 1 UNIT/0.01 ML UNIT SQ SCH ×4 (07:51→20:58)
[2023-02-06 07:52] LABS: Vancomycin,Random 11.7 ug/mL
[2023-02-06] MEDS: INSULIN GLARGINE, HUMAN 1 UNIT/0.01 ML SQ SCH (09:19)
[2023-02-06] MEDS: AMIODARONE HCL 200 MG TABLET PO SCH (09:19)
[2023-02-06] MEDS: MUPIROCIN OINT 2% 22GM NARES SCH ×2 (09:20→21:25)
[2023-02-06] MEDS: DOCUSATE SODIUM 100 MG CAPSULE PO SCH ×2 (09:20→20:38)
[2023-02-06] MEDS: METOPROLOL SUCCINATE 25 MG TAB.XL.24H PO SCH (09:20)
[2023-02-06] MEDS: SERTRALINE 50 MG TABLET PO SCH (09:20)
[2023-02-06] MEDS: HYDROcodone/APAP 5/325MG TABLET PO PRN (09:36)
[2023-02-06] MEDS ORDERED: VANCOMYCIN 1,500 MG in 0.9 % SODIUM CHLORIDE 500 ML IV SCH (10:00)
[2023-02-06] MEDS: GENTAMICIN SULFATE IRR SCH (12:07)
[2023-02-06] MEDS: SODIUM CHLORIDE IRRIG IRR SCH (12:07)
[2023-02-06] MEDS: CLINDAMYCIN IRR SCH (12:07)
[2023-02-06] MEDS: MUPIROCIN OINT 2% 22GM TOPICAL SCH (12:50)
[2023-02-06] MEDS ORDERED: FLUZONE HD QS2023-24/PF 240 MCG/0.7 ML SYRINGE IM ONE (16:00)
[2023-02-06] MEDS: traMADol 50 MG TABLET PO PRN (20:39)
[2023-02-07] MEDS: traMADol 50 MG TABLET PO PRN ×2 (02:19→09:23)
[2023-02-07] MEDS: PIPERACILLIN SODIUM/TAZOBACTAM 3.375 GM in DEXTROSE 5% IN WATER 50 ML IV SCH ×3 (06:00→17:06)
[2023-02-07] MEDS: 0.9 % SODIUM CHLORIDE 10 ML SYRINGE IV SCH ×3 (06:00→21:05)
[2023-02-07 07:02] LABS: Basophils # (Auto) 0.07 K/mcL (0.00-0.30); Basophils % (Auto) 0.6 % (0.0-2.0); Eosinophils # (Auto) 0.33 K/mcL (0.00-0.70); Hematocrit 38.3 % (40.1-51.0); Hemoglobin 11.3 g/dL (13.7-17.5); Lymphocytes # (Auto) 0.67 K/mcL (1.50-4.80); Lymphocytes % (Auto) 6.1 % (15.5-49.0); Mean Cell Volume 91.2 fL (80.0-100.0); Mean Corpuscular HGB Conc 29.5 g/dL (31.0-36.0); Mean Platelet Volume 10.3 fL (8.8-12.5); Monocytes # (Auto) 1.07 K/mcL (0.10-0.90); Monocytes % (Auto) 9.7 % (1.0-12.0); Neutrophils % (Auto) 80.1 % (38.0-78.0); Platelet Count 266 K/mcL (140-440); Red Cell Distribution Width 19.3 % (11.5-14.5); WBC 11.1 K/mcL (4.5-11.0)
[2023-02-07 07:21] LABS: Vancomycin,Random 12.8 ug/mL
[2023-02-07] MEDS: INSULIN LISPRO 1 UNIT/0.01 ML UNIT SQ SCH ×4 (07:24→21:04)
[2023-02-07 07:28] LABS: ALT/SGPT 7 U/L (<40); AST/SGOT 9 U/L (<40); Albumin 3.5 gm/dL (3.2-5.2); Alkaline Phosphatase 53 U/L (39-117); Bilirubin,Direct 0.4 mg/dL (<0.3); Bilirubin,Total 0.7 mg/dL (0.1-1.0); Blood Urea Nitrogen 67 mg/dL (8-23); Calcium 8.9 mg/dL (8.6-10.4); Carbon Dioxide 21 mmol/L (22-30); Chloride 104 mmol/L (96-108); Globulin 3.6 gm/dL (2.2-3.7); Glomerular Filtration Rate 39; Glucose 118 mg/dL (70-105); Lactate Dehydrogenase 175 U/L (135-225); Phosphorous 3.6 mg/dL (2.5-4.5); Triglycerides 66 mg/dL (<150); Uric Acid 8.8 mg/dL (2.5-8.0)
[2023-02-07] MEDS: SODIUM CHLORIDE IRRIG IRR SCH (08:49)
[2023-02-07] MEDS: CLINDAMYCIN IRR SCH (08:49)
[2023-02-07] MEDS: GENTAMICIN SULFATE IRR SCH (08:49)
[2023-02-07] MEDS ORDERED: VANCOMYCIN 1,500 MG in 0.9 % SODIUM CHLORIDE 500 ML IV SCH (09:00)
[2023-02-07] MEDS: INSULIN GLARGINE, HUMAN 1 UNIT/0.01 ML SQ SCH (09:23)
[2023-02-07] MEDS: MUPIROCIN OINT 2% 22GM TOPICAL SCH (09:23)
[2023-02-07] MEDS: SERTRALINE 50 MG TABLET PO SCH (09:23)
[2023-02-07] MEDS: MUPIROCIN OINT 2% 22GM NARES SCH ×2 (09:23→21:04)
[2023-02-07] MEDS: AMIODARONE HCL 200 MG TABLET PO SCH (09:23)
[2023-02-07] MEDS: DOCUSATE SODIUM 100 MG CAPSULE PO SCH ×2 (09:23→21:04)
[2023-02-07] MEDS: METOPROLOL SUCCINATE 25 MG TAB.XL.24H PO SCH (09:24)
[2023-02-07] MEDS: HYDROcodone/APAP 5/325MG TABLET PO PRN (21:04)
[2023-02-08] MEDS: PIPERACILLIN SODIUM/TAZOBACTAM 3.375 GM in DEXTROSE 5% IN WATER 50 ML IV SCH ×4 (00:23→18:27)
[2023-02-08] MEDS: 0.9 % SODIUM CHLORIDE 10 ML SYRINGE IV SCH ×3 (05:33→21:34)
[2023-02-08 06:33] LABS: Basophils # (Auto) 0.08 K/mcL (0.00-0.30); Basophils % (Auto) 0.8 % (0.0-2.0); Eosinophils # (Auto) 0.37 K/mcL (0.00-0.70); Eosinophils % (Auto) 3.5 % (0.0-7.0); Hematocrit 40.3 % (40.1-51.0); Hemoglobin 12.2 g/dL (13.7-17.5); Lymphocytes # (Auto) 0.77 K/mcL (1.50-4.80); Lymphocytes % (Auto) 7.3 % (15.5-49.0); Mean Cell Volume 91.2 fL (80.0-100.0); Mean Corpuscular HGB Conc 30.3 g/dL (31.0-36.0); Mean Platelet Volume 10.3 fL (8.8-12.5); Monocytes # (Auto) 0.99 K/mcL (0.10-0.90); Monocytes % (Auto) 9.4 % (1.0-12.0); Neutrophils % (Auto) 78.4 % (38.0-78.0); Platelet Count 289 K/mcL (140-440); RBC 4.42 M/mcL (4.63-6.08); Red Cell Distribution Width 18.8 % (11.5-14.5); WBC 10.5 K/mcL (4.5-11.0)
[2023-02-08 06:46] LABS: Erythrocyte Sedimentation Rate 66 mm/hr (0-20)
[2023-02-08 06:57] LABS: Blood Urea Nitrogen 58 mg/dL (8-23); Calcium 9.6 mg/dL (8.6-10.4); Carbon Dioxide 23 mmol/L (22-30); Chloride 103 mmol/L (96-108); Glomerular Filtration Rate 42; Glucose 92 mg/dL (70-105)
[2023-02-08] MEDS: INSULIN GLARGINE, HUMAN 1 UNIT/0.01 ML SQ SCH (08:10)
[2023-02-08] MEDS: INSULIN LISPRO 1 UNIT/0.01 ML UNIT SQ SCH ×4 (08:10→21:35)
[2023-02-08] MEDS: SERTRALINE 50 MG TABLET PO SCH (08:13)
[2023-02-08] MEDS: DOCUSATE SODIUM 100 MG CAPSULE PO SCH ×2 (08:14→21:34)
[2023-02-08] MEDS: AMIODARONE HCL 200 MG TABLET PO SCH (08:14)
[2023-02-08] MEDS: METOPROLOL SUCCINATE 25 MG TAB.XL.24H PO SCH (08:15)
[2023-02-08] MEDS ORDERED: FUROSEMIDE 40 MG/4 ML VIAL IV ONE (09:28)
[2023-02-08] MEDS ORDERED: ALBUMIN HUMAN 12.5 GM/50 ML VIAL IV ONE (09:28)
[2023-02-08] MEDS ORDERED: VANCOMYCIN 1,250 MG in 0.9 % SODIUM CHLORIDE 500 ML IV ONE (10:00)
[2023-02-08] MEDS: traMADol 50 MG TABLET PO PRN ×2 (10:35→21:34)
[2023-02-08] MEDS: MUPIROCIN OINT 2% 22GM TOPICAL SCH (11:30)
[2023-02-08] MEDS: MUPIROCIN OINT 2% 22GM NARES SCH ×2 (13:23→21:44)
[2023-02-08] MEDS ORDERED: APIXABAN 5 MG TABLET PO ONE (16:15)
[2023-02-09] MEDS: APIXABAN 5 MG TABLET PO SCH ×3 (00:24→20:27)
[2023-02-09] MEDS: PIPERACILLIN SODIUM/TAZOBACTAM 3.375 GM in DEXTROSE 5% IN WATER 50 ML IV SCH ×2 (00:24→05:43)
[2023-02-09] MEDS: HYDROcodone/APAP 5/325MG TABLET PO PRN (02:52)
[2023-02-09] MEDS: 0.9 % SODIUM CHLORIDE 10 ML SYRINGE IV SCH ×3 (05:49→20:28)
[2023-02-09] MEDS: INSULIN LISPRO 1 UNIT/0.01 ML UNIT SQ SCH ×4 (07:19→20:27)
[2023-02-09 07:26] LABS: Blood Urea Nitrogen 56 mg/dL (8-23); Calcium 9.3 mg/dL (8.6-10.4); Carbon Dioxide 24 mmol/L (22-30); Chloride 101 mmol/L (96-108); Glomerular Filtration Rate 45; Glucose 109 mg/dL (70-105)
[2023-02-09 07:27] LABS: Vancomycin,Random 16.6 ug/mL
[2023-02-09] MEDS ORDERED: ALBUMIN HUMAN 12.5 GM/50 ML VIAL IV ONE (08:22)
[2023-02-09] MEDS ORDERED: FUROSEMIDE 40 MG/4 ML VIAL IV ONE (08:22)
[2023-02-09] MEDS ORDERED: METOLAZONE 2.5 MG TABLET PO ONE (08:25)
[2023-02-09] MEDS ORDERED: VANCOMYCIN 1,250 MG in 0.9 % SODIUM CHLORIDE 500 ML IV ONE (09:00)
[2023-02-09] MEDS: SERTRALINE 50 MG TABLET PO SCH (09:05)
[2023-02-09] MEDS: METOPROLOL SUCCINATE 25 MG TAB.XL.24H PO SCH (09:05)
[2023-02-09] MEDS: AMIODARONE HCL 200 MG TABLET PO SCH (09:05)
[2023-02-09] MEDS: DOCUSATE SODIUM 100 MG CAPSULE PO SCH ×2 (09:05→20:27)
[2023-02-09] MEDS: INSULIN GLARGINE, HUMAN 1 UNIT/0.01 ML SQ SCH (09:06)
[2023-02-09] MEDS: MUPIROCIN OINT 2% 22GM TOPICAL SCH (09:07)
[2023-02-09] MEDS: MUPIROCIN OINT 2% 22GM NARES SCH ×2 (09:07→20:27)
[2023-02-09] MEDS: cefTRIAXone 2 GM in DEXTROSE 5% IN WATER 50 ML IV SCH (09:41)
[2023-02-10] MEDS: 0.9 % SODIUM CHLORIDE 10 ML SYRINGE IV SCH ×3 (05:17→20:28)
[2023-02-10] MEDS: INSULIN LISPRO 1 UNIT/0.01 ML UNIT SQ SCH ×4 (07:16→20:27)
[2023-02-10 07:25] LABS: Blood Urea Nitrogen 52 mg/dL (8-23); Carbon Dioxide 24 mmol/L (22-30); Chloride 100 mmol/L (96-108); Glomerular Filtration Rate 45; Glucose 133 mg/dL (70-105)
[2023-02-10 07:36] LABS: Vancomycin,Random 16.7 ug/mL
[2023-02-10] MEDS: cefTRIAXone 2 GM in DEXTROSE 5% IN WATER 50 ML IV SCH (08:10)
[2023-02-10] MEDS: MUPIROCIN OINT 2% 22GM NARES SCH ×2 (08:50→20:27)
[2023-02-10] MEDS: MUPIROCIN OINT 2% 22GM TOPICAL SCH (08:51)
[2023-02-10] MEDS: APIXABAN 5 MG TABLET PO SCH ×2 (08:51→20:27)
[2023-02-10] MEDS: SERTRALINE 50 MG TABLET PO SCH (08:51)
[2023-02-10] MEDS: AMIODARONE HCL 200 MG TABLET PO SCH (08:51)
[2023-02-10] MEDS: DOCUSATE SODIUM 100 MG CAPSULE PO SCH ×2 (08:52→20:27)
[2023-02-10] MEDS: INSULIN GLARGINE, HUMAN 1 UNIT/0.01 ML SQ SCH (08:52)
[2023-02-10] MEDS: METOPROLOL SUCCINATE 25 MG TAB.XL.24H PO SCH (08:52)
[2023-02-10] MEDS ORDERED: VANCOMYCIN 1,250 MG in 0.9 % SODIUM CHLORIDE 500 ML IV ONE (10:00)
[2023-02-10] MEDS ORDERED: FUROSEMIDE 40 MG/4 ML VIAL IV ONE (11:15)
[2023-02-11 06:56] LABS: Albumin 3.8 gm/dL (3.2-5.2); Blood Urea Nitrogen 48 mg/dL (8-23); Calcium 9.3 mg/dL (8.6-10.4); Carbon Dioxide 23 mmol/L (22-30); Chloride 102 mmol/L (96-108); Glomerular Filtration Rate 54; Glucose 141 mg/dL (70-105); Phosphorous 3.2 mg/dL (2.5-4.5)
[2023-02-11] MEDS ORDERED: FUROSEMIDE 40 MG/4 ML VIAL IV SCH (08:00)
[2023-02-11] MEDS: 0.9 % SODIUM CHLORIDE 10 ML SYRINGE IV SCH ×3 (08:22→20:56)
[2023-02-11] MEDS: cefTRIAXone 2 GM VIAL ONE ×2 (08:23→08:39)
[2023-02-11] MEDS: INSULIN LISPRO 1 UNIT/0.01 ML UNIT SQ SCH ×4 (08:23→21:12)
[2023-02-11] MEDS: DOCUSATE SODIUM 100 MG CAPSULE PO SCH ×2 (08:24→20:56)
[2023-02-11] MEDS: APIXABAN 5 MG TABLET PO SCH ×2 (08:24→20:52)
[2023-02-11] MEDS: AMIODARONE HCL 200 MG TABLET PO SCH (08:24)
[2023-02-11] MEDS: METOPROLOL SUCCINATE 25 MG TAB.XL.24H PO SCH (08:24)
[2023-02-11] MEDS: SERTRALINE 50 MG TABLET PO SCH (08:24)
[2023-02-11] MEDS: INSULIN GLARGINE, HUMAN 1 UNIT/0.01 ML SQ SCH (08:25)
[2023-02-11] MEDS: cefTRIAXone 2 GM in DEXTROSE 5% IN WATER 50 ML IV SCH (08:37)
[2023-02-11] MEDS: MUPIROCIN OINT 2% 22GM NARES SCH ×2 (08:44→20:55)
[2023-02-11] MEDS ORDERED: VANCOMYCIN 1,500 MG in 0.9 % SODIUM CHLORIDE 500 ML IV SCH (09:00)
[2023-02-11] MEDS: MUPIROCIN OINT 2% 22GM TOPICAL SCH (10:21)
[2023-02-11] MEDS: FUROSEMIDE 40 MG/4 ML VIAL IV SCH ×2 (16:56→20:52)
[2023-02-11] MEDS: traMADol 50 MG TABLET PO PRN (20:51)
[2023-02-12] MEDS: 0.9 % SODIUM CHLORIDE 10 ML SYRINGE IV SCH ×2 (04:52→17:44)
[2023-02-12] MEDS: INSULIN LISPRO 1 UNIT/0.01 ML UNIT SQ SCH ×3 (08:27→17:44)
[2023-02-12] MEDS: SERTRALINE 50 MG TABLET PO SCH (08:27)
[2023-02-12] MEDS: DOCUSATE SODIUM 100 MG CAPSULE PO SCH (08:27)
[2023-02-12] MEDS: METOPROLOL SUCCINATE 25 MG TAB.XL.24H PO SCH (08:27)
[2023-02-12] MEDS: MUPIROCIN OINT 2% 22GM NARES SCH (08:28)
[2023-02-12] MEDS: AMIODARONE HCL 200 MG TABLET PO SCH (08:28)
[2023-02-12] MEDS: FUROSEMIDE 40 MG/4 ML VIAL IV SCH ×2 (08:28→17:44)
[2023-02-12] MEDS: MUPIROCIN OINT 2% 22GM TOPICAL SCH (08:28)
[2023-02-12] MEDS: APIXABAN 5 MG TABLET PO SCH (08:29)
[2023-02-12 09:13] LABS: Albumin 3.6 gm/dL (3.2-5.2); Calcium 9.1 mg/dL (8.6-10.4); Phosphorous 3.2 mg/dL (2.5-4.5)
[2023-02-12] MEDS: INSULIN GLARGINE, HUMAN 1 UNIT/0.01 ML SQ SCH (09:20)
[2023-02-12 12:05] VITALS: TEMP 97.9
[2023-02-12 15:04] VITALS: O2SAT 100
== END 2023-02-12 18:35 | DRG 602 ==
LOC: ED 04:26 → MEDSUR 11:04
PROVIDERS: ADMIT Internal Medicine; ATTEND Internal Medicine